=== PATIENT | male | born 1935 | race Caucasian/White ===

== ENCOUNTER → 2018-05-04 12:19 | Outpatient (CLI) | payer OTHER, SELFPAY ==
[2018-05-04 13:13] LABS: Prothrombin Time 18.6 sec (9.3-10.8)
[2018-05-04 13:43] LABS: INR 1.9 (1.0-3.5)
== END ==
PROVIDERS: PCP Family Medicine; Visit Provider Family Medicine
DX: I48.91 Unspecified atrial fibrillation (principal); Z79.01 Long term (current) use of anticoagulants
CPT/HCPCS: 36415; 85610

== ENCOUNTER → 2018-05-17 12:22 | Outpatient (CLI) | payer OTHER, SELFPAY ==
[2018-05-17 12:59] LABS: INR 1.6 (1.0-3.5); Prothrombin Time 15.5 sec (9.3-10.8)
== END ==
PROVIDERS: Family Medicine; PCP Family Medicine; Visit Provider Family Medicine
DX: I48.91 Unspecified atrial fibrillation (principal); Z79.01 Long term (current) use of anticoagulants
CPT/HCPCS: 36415; 85610

== ENCOUNTER 2018-05-31 12:16 | Outpatient (CLI) | payer OTHER, SELFPAY ==
[2018-05-31 12:47] LABS: INR 2.6 (1.0-3.5); Prothrombin Time 24.2 sec (9.3-10.8)
== END 2018-05-31 12:36 ==
PROVIDERS: Family Medicine; PCP Family Medicine; Visit Provider Family Medicine
DX: I48.91 Unspecified atrial fibrillation (principal); Z79.01 Long term (current) use of anticoagulants
CPT/HCPCS: 36415; 85610

== ENCOUNTER 2018-06-13 12:20 | Outpatient (CLI) | payer OTHER, SELFPAY ==
[2018-06-13 13:32] LABS: INR 2.4 (1.0-3.5); Prothrombin Time 22.6 sec (9.3-10.8)
== END 2018-06-13 12:40 ==
PROVIDERS: PCP Family Medicine; Visit Provider Family Medicine
DX: I48.91 Unspecified atrial fibrillation (principal); Z79.01 Long term (current) use of anticoagulants
CPT/HCPCS: 36415; 85610

== ENCOUNTER 2018-07-06 12:32 | Outpatient (CLI) | payer OTHER, SELFPAY ==
[2018-07-06 13:05] LABS: INR 2.4 (1.0-3.5); Prothrombin Time 22.9 sec (9.3-10.8)
[2018-07-06 13:31] LABS: Anion Gap 11.4 mmol/L (3-11); BUN 25 mg/dL (7-18); CO2 25.6 mmol/L (21.0-32.0); CREATININE 1.18 mg/dL (0.70-1.30); Calcium 8.5 mg/dL (8.5-10.1); Chloride 105 mmol/L (98-107); Estimated GFR 59.25 (mL/min/1.73m2); Glucose 107 mg/dL (70-100); Potassium 3.6 mmol/L (3.5-5.1); Sodium 142 mmol/L (136-145)
== END 2018-07-06 12:52 ==
PROVIDERS: PCP Family Medicine; Visit Provider Family Medicine
DX: I48.91 Unspecified atrial fibrillation (principal); Z79.01 Long term (current) use of anticoagulants; N28.9 Disorder of kidney and ureter, unspecified
CPT/HCPCS: 36415; 80048; 85610

== ENCOUNTER → 2018-07-23 09:57 | Outpatient (BNVA) | payer OTHER, SELFPAY | PROVIDERS: PCP Family Medicine; Visit Provider Student in an Organized Health Care Education/Training Program | DX: T84.84XD Pain due to internal orthopedic prosthetic devices, implants and grafts, subsequent encounter (principal); Z96.652 Presence of left artificial knee joint | CPT/HCPCS: 20610; 99213 ==

== ENCOUNTER 2018-07-23 11:34 | Outpatient (REF) | payer OTHER, SELFPAY ==
[2018-07-23 12:38] LABS: Clarity CLOUDY; Source L KNEE
[2018-07-23 12:39] LABS: Mononuclear Cells 40 % (0-0); Polynuclear Cells 60 % (0-0)
[2018-07-23 12:41] LABS: Nucleated Cells 3772 /MM3 (0-0)
== END 2018-07-23 11:54 ==
LOC: LBN 11:34
PROVIDERS: PCP Family Medicine; Visit Provider Student in an Organized Health Care Education/Training Program
DX: T84.84XA Pain due to internal orthopedic prosthetic devices, implants and grafts, 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 (principal)
CPT/HCPCS: 87070; 87205; 89051; 89060

== ENCOUNTER 2018-07-27 00:45 | Outpatient (CLI) | payer OTHER, SELFPAY ==
--- NOTE | 2018-07-27 10:07 | DI.NM_ITS ---
SYMPTOMS/DIAGNOSIS: PAINFUL LT TKA, T84.84XA 3 PHASE BONE SCAN: The study was conducted according to the usual protocol with an intravenous administration of 25.5 millicuries of Technetium 99 MDP. No recent x-ray images of the right or left knee are provided. There are regions of increased photon density in the right knee which would be consistent with degenerative change. Increased photon density adjacent to prosthetic device can persistent for long periods of time. The flow study today is essentially unremarkable. Immediate and delayed images were obtained on this patient and in addition to the findings described about the knees, there is a right hip prosthesis in place with mild associated increased photon density in the adjacent bony structures. Note is also made of increased photon density in the left mandible which could be associated with the patient's dentition. Also note is made of a region of increased photon density in the vicinity of the right maxillary antrum raising the possibility of sinusitis. There is symmetrical activity over the renal beds and activity is identified in the bladder. SUMMARY: Findings consistent with the patient's right TKR. Also there is incidentally a question regarding right maxillary sinusitis. Correlation of the findings today with the patient's clinical status and recent x-ray is recommended. There is nothing on this examination to suggest metastatic disease. A previous bone scan was not extant at the time of this interpretation.
== END 2018-07-27 01:05 ==
PROVIDERS: PCP Family Medicine; Visit Provider Physician Assistant
DX: T84.84XA Pain due to internal orthopedic prosthetic devices, implants and grafts, 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 (principal); Z96.641 Presence of right artificial hip joint; M25.562 Pain in left knee
CPT/HCPCS: 78315

== ENCOUNTER 2018-08-31 12:32 | Outpatient (CLI) | payer OTHER, SELFPAY ==
[2018-08-31 14:09] LABS: INR 2.2 (1.0-3.5); Prothrombin Time 20.9 sec (9.3-10.8)
== END 2018-08-31 12:52 ==
PROVIDERS: PCP Family Medicine; Visit Provider Family Medicine
DX: I48.91 Unspecified atrial fibrillation (principal); Z79.01 Long term (current) use of anticoagulants
CPT/HCPCS: 36415; 85610

== ENCOUNTER → 2018-09-10 10:45 | Outpatient (BNVA) | payer OTHER, SELFPAY | PROVIDERS: PCP Family Medicine; Referring Provider Family Medicine; Visit Provider Student in an Organized Health Care Education/Training Program | DX: T84.84XA Pain due to internal orthopedic prosthetic devices, implants and grafts, 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 (principal); Z96.652 Presence of left artificial knee joint; E11.22 Type 2 diabetes mellitus with diabetic chronic kidney disease; N18.2 Chronic kidney disease, stage 2 (mild) | CPT/HCPCS: 99213 ==

== ENCOUNTER 2018-10-05 12:42 | Outpatient (CLI) | payer OTHER, SELFPAY ==
[2018-10-05 13:45] LABS: INR 1.8 (0.9-1.1)
== END 2018-10-05 13:02 ==
PROVIDERS: PCP Family Medicine; Visit Provider Family Medicine
DX: I48.91 Unspecified atrial fibrillation (principal); Z79.01 Long term (current) use of anticoagulants
CPT/HCPCS: 36415; 85610

== ENCOUNTER 2018-11-13 11:27 | Outpatient (CLI) | payer OTHER, SELFPAY ==
[2018-11-13 12:29] LABS: INR 2.2 (0.9-1.1); Prothrombin Time 22.5 sec (9.3-11.0)
== END 2018-11-13 11:47 ==
PROVIDERS: PCP Family Medicine; Visit Provider Family Medicine
DX: I48.91 Unspecified atrial fibrillation (principal); Z79.01 Long term (current) use of anticoagulants
CPT/HCPCS: 36415; 85610

== ENCOUNTER 2018-12-25 11:20 | Outpatient (CLI) | payer OTHER, SELFPAY ==
[2018-12-25 12:16] LABS: INR 2.6 (0.9-1.1); Prothrombin Time 25.8 sec (9.3-11.0)
== END 2018-12-25 11:40 ==
PROVIDERS: PCP Family Medicine; Visit Provider Family Medicine
DX: I48.91 Unspecified atrial fibrillation (principal); Z79.01 Long term (current) use of anticoagulants
CPT/HCPCS: 36415; 85610

== ENCOUNTER 2019-01-24 10:54 | Outpatient (CLI) | payer OTHER, SELFPAY ==
[2019-01-24 11:32] LABS: INR 1.4 (0.9-1.1); Prothrombin Time 14.3 sec (9.3-11.0)
== END 2019-01-24 11:14 ==
PROVIDERS: PCP Family Medicine; Visit Provider Family Medicine
DX: I48.91 Unspecified atrial fibrillation (principal); Z79.01 Long term (current) use of anticoagulants
CPT/HCPCS: 36415; 85610

== ENCOUNTER 2019-01-31 12:12 | Outpatient (CLI) | payer OTHER, SELFPAY ==
[2019-01-31 12:55] LABS: Prothrombin Time 19.8 sec (9.3-11.0)
== END 2019-01-31 12:32 ==
PROVIDERS: PCP Family Medicine; Visit Provider Family Medicine
DX: I48.91 Unspecified atrial fibrillation (principal); Z79.01 Long term (current) use of anticoagulants
CPT/HCPCS: 36415; 85610

== ENCOUNTER 2019-03-22 12:07 | Outpatient (CLI) | payer OTHER, SELFPAY ==
[2019-03-22 12:43] LABS: INR 2.5 (0.9-1.1); Prothrombin Time 24.8 sec (9.3-11.0)
== END 2019-03-22 12:27 ==
PROVIDERS: PCP Family Medicine; Visit Provider Family Medicine
DX: I48.91 Unspecified atrial fibrillation (principal); Z79.01 Long term (current) use of anticoagulants
CPT/HCPCS: 36415; 85610

== ENCOUNTER 2019-04-26 12:23 | Outpatient (CLI) | payer OTHER, SELFPAY ==
[2019-04-26 12:56] LABS: INR 1.8 (0.9-1.1); Prothrombin Time 18.3 sec (9.3-11.0)
== END 2019-04-26 12:43 ==
PROVIDERS: PCP Family Medicine; Visit Provider Family Medicine
DX: I48.91 Unspecified atrial fibrillation (principal); Z79.01 Long term (current) use of anticoagulants
CPT/HCPCS: 36415; 85610

== ENCOUNTER 2019-05-10 12:14 | Outpatient (CLI) | payer OTHER, SELFPAY ==
[2019-05-10 12:54] LABS: Prothrombin Time 20.6 sec (9.3-11.0)
== END 2019-05-10 12:34 ==
PROVIDERS: PCP Family Medicine; Visit Provider Family Medicine
DX: I48.91 Unspecified atrial fibrillation (principal); Z79.01 Long term (current) use of anticoagulants
CPT/HCPCS: 36415; 85610

== ENCOUNTER 2019-06-21 12:09 | Outpatient (CLI) | payer OTHER, SELFPAY ==
[2019-06-21 12:48] LABS: INR 2.1 (0.9-1.1); Prothrombin Time 20.9 sec (9.3-11.0)
== END 2019-06-21 12:29 ==
PROVIDERS: Family Medicine; PCP Family Medicine; Visit Provider Family Medicine
DX: I48.91 Unspecified atrial fibrillation (principal); Z79.01 Long term (current) use of anticoagulants
CPT/HCPCS: 36415; 85610

== ENCOUNTER 2019-08-09 12:16 | Outpatient (CLI) | payer OTHER, SELFPAY ==
[2019-08-09 13:51] LABS: Anion Gap 11.1 mmol/L (3-11); BUN 27 mg/dL (7-18); CO2 27.9 mmol/L (21.0-32.0); CREATININE 1.33 mg/dL (0.70-1.30); Calcium 8.5 mg/dL (8.5-10.1); Chloride 101 mmol/L (98-107); Estimated GFR 51.48 (mL/min/1.73m2); Glucose 122 mg/dL (70-100); Potassium 3.6 mmol/L (3.5-5.1); Sodium 140 mmol/L (136-145)
[2019-08-09 14:25] LABS: INR 3.6 (0.9-1.1); Prothrombin Time 34.9 sec (9.3-11.0)
== END 2019-08-09 12:36 ==
PROVIDERS: PCP Family Medicine; Visit Provider Family Medicine
DX: I10 Essential (primary) hypertension (principal); I48.91 Unspecified atrial fibrillation; Z79.01 Long term (current) use of anticoagulants
CPT/HCPCS: 36415; 80048; 85610

== ENCOUNTER 2019-08-19 10:12 | Outpatient (CLI) | payer OTHER, SELFPAY ==
[2019-08-19 11:23] LABS: INR 2.6 (0.9-1.1); Prothrombin Time 25.2 sec (9.3-11.0)
== END 2019-08-19 10:32 ==
PROVIDERS: PCP Family Medicine; Visit Provider Family Medicine
DX: I48.91 Unspecified atrial fibrillation (principal); Z79.01 Long term (current) use of anticoagulants
CPT/HCPCS: 36415; 85610

== ENCOUNTER 2019-08-27 10:28 | Outpatient (CLI) | payer OTHER, SELFPAY ==
[2019-08-27 11:28] LABS: INR 3.5 (0.9-1.1); Prothrombin Time 34.4 sec (9.3-11.0)
== END 2019-08-27 10:48 ==
PROVIDERS: PCP Family Medicine; Visit Provider Family Medicine
DX: I48.91 Unspecified atrial fibrillation (principal); Z79.01 Long term (current) use of anticoagulants
CPT/HCPCS: 36415; 85610

== ENCOUNTER 2019-09-05 12:05 | Outpatient (CLI) | payer OTHER, SELFPAY ==
[2019-09-05 13:10] LABS: INR 2.4 (0.9-1.1); Prothrombin Time 23.5 sec (9.3-11.0)
== END 2019-09-05 12:25 ==
PROVIDERS: PCP Family Medicine; Visit Provider Family Medicine
DX: I48.91 Unspecified atrial fibrillation (principal); Z79.01 Long term (current) use of anticoagulants
CPT/HCPCS: 36415; 85610

== ENCOUNTER 2019-10-11 10:42 | Outpatient (CLI) | payer OTHER, SELFPAY ==
[2019-10-11 11:57] LABS: INR 2.9 (0.9-1.1)
== END 2019-10-11 11:02 ==
PROVIDERS: Family Medicine; PCP Family Medicine; Visit Provider Family Medicine
DX: I48.91 Unspecified atrial fibrillation (principal); Z79.01 Long term (current) use of anticoagulants
CPT/HCPCS: 36415; 85610

== ENCOUNTER 2019-11-06 09:21 | Outpatient (CLI) | payer OTHER, SELFPAY ==
[2019-11-06 10:38] LABS: INR 2.4 (0.9-1.1); Prothrombin Time 23.3 sec (9.3-11.0)
== END 2019-11-06 09:41 ==
PROVIDERS: PCP Family Medicine; Visit Provider Family Medicine
DX: I48.91 Unspecified atrial fibrillation (principal); Z79.01 Long term (current) use of anticoagulants
CPT/HCPCS: 36415; 85610

== ENCOUNTER 2020-03-23 03:08 | Outpatient (CLI) | payer OTHER, SELFPAY ==
[2020-03-23 10:04] LABS: INR 2.1 (0.9-1.1); Prothrombin Time 20.6 sec (9.3-11.0)
== END 2020-03-23 03:28 ==
PROVIDERS: PCP Family Medicine; Visit Provider Family Medicine
DX: I48.91 Unspecified atrial fibrillation (principal); Z79.01 Long term (current) use of anticoagulants
CPT/HCPCS: 36415; 85610

== ENCOUNTER 2021-02-19 14:44 | Outpatient (REF) | payer MEDICARE, SELFPAY ==
--- NOTE | 2021-02-19 10:50 | PAPNONF_PTH ---
PATIENT: Jorge Stone LOC: [facility] U#:[id number] AGE/SX: 85/M ROOM: RE02/19/[address]: Tamiko Sullivan, PhD CUSTOMER ACCOUNTS ADVISOR : 1935 BED: DIS: 02/19/2021 SPEC #: [id number] RECD: 02/19/21 17:59 STATUS: CALEB REQ #: [id number] SUE: 02/19/21 10:[address]: Tamiko Sullivan DEPT: [facility] Cytology RECD BY: Donna Villalobos Tissues: 1 - BODY FLUID CYTO(SPUTUM/URINE)UV Procedures: BODY FLUID CYTO(URINE/SPUTUM) Comments: (TOTAL VOLUME = 40 ml's) (40 ml's URINE & 40 ml's CYTOLYT ADDED)
[2021-02-19 14:18] LABS: Bilirubin Small (Negative); Blood Large (Negative); Clarity Cloudy (Clear); Glucose Negative (Negative); Ketones Negative (Negative); Leukocyte Esterase Negative (Negative); Nitrite Negative (Negative); Specific Gravity 1.015 (1.005-1.025); Urobilinogen 0.2 EU/dL (Up TO 0.2); pH >= 9.0 (5-8)
[2021-02-19 14:28] LABS: Bacteria Negative HPF (Negative); Crystals Few Triple Phos HPF (Negative); Epithelial Cells Rare HPF (Negative); RBC >50 HPF (0-2); WBC 0-2 HPF (0-5)
[2021-02-19 14:29] LABS: C & S Indicated? No; Casts Negative LPF (Negative); Mucus Moderate (Negative)
== END 2021-02-19 14:45 | disposition home or self-care (01) ==
LOC: LBN 14:44
PROVIDERS: PCP Nurse Practitioner; Visit Provider Nurse Practitioner
DX: R31.9 Hematuria, unspecified (principal); R82.71 Bacteriuria; R82.89 Other abnormal findings on cytological and histological examination of urine
CPT/HCPCS: 81003; 81015; 88104

== ENCOUNTER 2021-05-04 01:33 | Outpatient (CLI) | payer MEDICARE, SELFPAY ==
--- NOTE | 2021-05-04 | DI.US_ITS ---
Exam(s) US RENAL EXAM: US RENAL CLINICAL HISTORY: HEMATURIA,R31.9. TECHNIQUE: Lockett scale, color and spectral Doppler were used. COMPARISON: CT CHEST ABD PELVIS WO CONTRAST from 01/14/2018 CT CHEST ABD PELVIS WO CONTRAST from 01/14/2018 FINDINGS: Exam is limited by the patient's body habitus. There is a large amount of perirenal fat. No gross r enal abnormality is seen. Renal size in cm: Right: Left: Echogenicity: Normal Hydronephrosis: No Cyst or mass: No Nephrolithiasis: No Bladder:Nearly empty. 4.7 x 1.3 x 4.2 cm irregular lobulated tissue posterior left side of the bladd er suspicious for mass. Prevoid vol:40 cc Postvoid vol:Not performed Prostate not visualized. IMPRESSION: Findings suspicious for a bladder mass. Kidneys are grossly normal. DATA REPOSITORY:
== END 2021-05-04 01:53 ==
PROVIDERS: PCP Nurse Practitioner; Visit Provider Nurse Practitioner
DX: R31.9 Hematuria, unspecified (principal)
CPT/HCPCS: 76770

== ENCOUNTER → 2021-06-08 10:52 | Outpatient (BNVA) | payer MEDICARE, SELFPAY | PROVIDERS: PCP Nurse Practitioner; Referring Provider Nurse Practitioner; Visit Provider Nurse Practitioner Gerontology | DX: R31.0 Gross hematuria (principal); N32.89 Other specified disorders of bladder | CPT/HCPCS: 81003; 99215 ==

== ENCOUNTER 2021-07-30 03:09 | Outpatient (CLI) | payer MEDICARE, SELFPAY ==
[2021-07-30 12:33] LABS: Source Nasal/Nares
[2021-07-30 17:09] LABS: COVID-19 PCR Negative (Negative)
== END 2021-07-30 03:10 | disposition home or self-care (01) ==
LOC: LBO 03:10
PROVIDERS: Urology; PCP Nurse Practitioner; Visit Provider Nurse Practitioner Gerontology
DX: Z20.822 Contact with and (suspected) exposure to COVID-19 (principal); Z01.818 Encounter for other preprocedural examination
CPT/HCPCS: 87635

== ENCOUNTER 2021-08-02 02:06 | Outpatient (CLI) | payer SELFPAY, MEDICARE | END 2021-08-02 02:07 | disposition home or self-care (01) | LOC: RT 02:06 | PROVIDERS: PCP Nurse Practitioner; Visit Provider Urology | DX: R69 Illness, unspecified (principal) | CPT/HCPCS: 93005; 93010 ==

== ENCOUNTER 2021-08-02 10:32 | Day surgery (SDC) | payer MEDICARE, SELFPAY ==
--- NOTE | 2021-08-02 10:16 | HPE_ITS ---
Date of service: 08/02/21 Time of Service: 10:16 Assessment and Plan Assessment and plan (1) Hematuria: Status: Acute (2) Mass of urinary bladder determined by ultrasound: Status: Acute Assessment and plan: For cystoscopy with bilateral retrograde pyelogram to complete his hematuria workup. We will plan to resect any visible bladder tumor and admit the patient for continuous bladder irrigation if need be. 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) bilateral Social History Smoking/Tobacco Use Status: Former Tobacco Use tobacco type: cigarettes, pipe and cigars Smokeless tobacco user: snuff Quit status: not considering quitting Second Hand Exposure: Yes Smoking risk assessment performed?: Yes Alcohol Intake: former Drug use: Never Caregiver/Support person: No Household members: none Communication Needs: Hard of Hearing and Cannot Read Do you need help understanding health information?: Rarely Pets and animals: No Sexually active: No Current gender identity: male What is your relationship status?: How often do you talk on the phone with friends or family?: three or more times per week How often do you get together with friends or relatives?: once per week Panel score (0-1 are the most socially isolated patients): 1 Duration: < 15 minutes/day Frequency: 1-2 times per week Anna/Catholic: No preference Seatbelt use: always Helmet use: No Do you feel safe in your relationship?: Yes Meds Allergies and Home Medications Allergies Allergy/AdvReac Type Severity Reaction Status Date / Time No Known Allergies Allergy Unverified 08/02/21 10:12 Home Medications Medication Instructions Recorded Confirmed Type acetaminophen 650 mg 1,300 mg PO HS PRN #60 tab 09/11/18 07/30/21 Rx tablet,extended release polyethylene glycol 3350 17 17 gm PO DAILY PRN #238 gm 01/24/19 07/30/21 Rx gram/dose oral powder warfarin 2.5 mg tablet 2.5 mg PO DAILY #100 tab 04/07/20 07/30/21 Rx allopurinol 300 mg tablet 300 mg PO DAILY #90 tab-cap 06/23/20 07/30/21 Rx diltiazem HCl 120 mg 120 mg PO QAM #90 tab 06/23/20 07/30/21 Rx capsule,extended release 24 hr ascorbic acid (vitamin C) 250 mg 250 mg PO DAILY 10/23/20 07/30/21 History tablet cknwosasg-gnpdcwqhbh-U7-B2-folic 6 cap PO DAILY cap 10/23/20 07/30/21 History acid-iron 0.45 gram-9 mg-67 unit cap cholecalciferol (vitamin D3) 25 50 mcg PO DAILY cap 10/23/20 07/30/21 History mcg (1,000 unit) capsule omega 1-mog-rvi-fish oil 1,000 mg 1 cap PO DAILY 10/23/20 07/30/21 History (120 mg-180 mg) capsule bacitracin 500 unit/gram topical 1 applic TOPICAL BID #30 g 11/27/20 07/30/21 Rx ointment bumetanide 1 mg tablet 2 mg PO QAM #180 tab 02/05/21 07/30/21 Rx lisinopril 10 mg tablet 10 mg PO DAILY #90 tab 02/18/21 07/30/21 Rx warfarin 5 mg tablet 5 mg PO .COMPLEX #100 tab 05/07/21 07/30/21 Rx PAWSS Have you Been Recently Intoxicated or Drunk Within the Last 30 days?: No Have you Ever Experienced Previous Episodes of Alcohol Withdrawal?: No Have you ever Experienced Withdrawal Seizures?: No Have you ever Experienced Delirium Tremens(DT)s?: No Have you ever undergone Alcohol Rehabilitation Treatment (i.e, inpt ot outpatient treatment programs)?: No Have you ever Experienced Blackouts?: No Have you ever Combined Alcohol with other Downers within the last 90 days?: No Have you ever Combined Alcohol with any other Substance of Abuse during the last 90 days?: No Positive Blood Alcohol level on Presentation? [PCS.BAL]: Unable to Obtain Evidence of Increased Autonomic Activity (i.e. HR>120, tremor, sweating, agitation, nausea)?: Unable to Obtain Result: 0
--- NOTE | 2021-08-02 11:00 | RT.EKG_ITS ---
APPROVED REPORT Exam: Resting ECG Reason for Exam: Cardiac history, Preop Exam Patient Location: O HR:66 bpm ECG Measurements Heart Rate 66 [place] [id number] P [id number] QRSd 98 QRS -29 QT 399 T 30 QTc 418 Conclusion Atrial fibrillation...V-rate 53- 77, irreg A-activity Possible Inferior infarct, old...Q >35mS, II III aVF
== END 2021-08-02 10:33 | disposition home or self-care (01) ==
LOC: SUR 10:33
PROVIDERS: PCP Nurse Practitioner; Visit Provider Urology
PROC: (CPT 74450; principal; 2021-08-02 11:45)
PROC: 0TBB8ZZ Excision of Bladder, Via Natural or Artificial Opening Endoscopic (ICD-10-PCS; 2021-08-02 11:45)
DX: Z53.9 Procedure and treatment not carried out, unspecified reason (principal); I48.91 Unspecified atrial fibrillation
CPT/HCPCS: 93005; 93010; J2405; J2704

== ENCOUNTER 2021-08-06 03:13 | Outpatient (CLI) | payer MEDICARE, SELFPAY ==
[2021-08-06 10:59] LABS: Source Nasal/Nares
[2021-08-06 15:42] LABS: COVID-19 PCR Negative (Negative)
== END 2021-08-06 03:14 | disposition home or self-care (01) ==
LOC: LBO 03:14
PROVIDERS: PCP Nurse Practitioner; Visit Provider Urology
DX: Z20.822 Contact with and (suspected) exposure to COVID-19 (principal); Z01.818 Encounter for other preprocedural examination
CPT/HCPCS: 87635

== ENCOUNTER 2021-08-09 09:12 | Inpatient (IN) | payer MEDICARE, SELFPAY ==
--- NOTE | 2021-08-08 16:46 | W.ANESPRE ---
General Info Date of Service Date Performed: 08/09/21 Height: 5 ft 11 in Weight: 136.531 kg Body Mass Index (BMI): 42.0 Surgical Procedure: Operation Date: 08/09/21 07:40 Proposed Procedures Side Surgeon p Cysto\Bilateral Retrograde\possible TURBT Raymon Delgadillo MD Meds Allergies and Home Medications Allergies Allergy/AdvReac Type Severity Reaction Status Date / Time No Known Allergies Allergy Unverified 08/09/21 06:36 Home Medication Medication Instructions Recorded acetaminophen 650 mg 1,300 mg PO HS PRN #60 tab 09/11/18 tablet,extended release polyethylene glycol 3350 17 17 gm PO DAILY PRN #238 gm 01/24/19 gram/dose oral powder warfarin 2.5 mg tablet 2.5 mg PO DAILY #100 tab 04/07/20 allopurinol 300 mg tablet 300 mg PO DAILY #90 tab-cap 06/23/20 diltiazem HCl 120 mg 120 mg PO QAM #90 tab 06/23/20 capsule,extended release 24 hr ascorbic acid (vitamin C) 250 mg 250 mg PO DAILY 10/23/20 tablet ldmobkoch-vizlpmdpqq-B8-B2-folic 6 cap PO DAILY cap 10/23/20 acid-iron 0.45 gram-9 mg-67 unit cap cholecalciferol (vitamin D3) 25 50 mcg PO DAILY cap 10/23/20 mcg (1,000 unit) capsule omega 7-cuk-tru-fish oil 1,000 mg 1 cap PO DAILY 10/23/20 (120 mg-180 mg) capsule bacitracin 500 unit/gram topical 1 applic TOPICAL BID #30 g 11/27/20 ointment bumetanide 1 mg tablet 2 mg PO QAM #180 tab 02/05/21 lisinopril 10 mg tablet 10 mg PO DAILY #90 tab 02/18/21 warfarin 5 mg tablet 5 mg PO .COMPLEX #100 tab 05/07/21 Current Visit Medications: Current Medications Generic Name Dose Route Start Last Admin Trade Name Freq PRN Reason Stop Dose Admin Ringer's Solution 1,000 mls @ 80 mls/hr 08/09/21 06:00 IV 09/05/21 23:59 INFUSION JHONATAN Cefazolin Sodium 2,000 mg/ 100 mls @ 200 mls/hr 08/09/21 06:00 Sodium Chloride IVPB 08/09/21 16:00 PREOP JHONATAN IV Miscellaneous Supplies 1 each 08/09/21 06:00 Iv Access IV 09/05/21 23:59 DIRECTED JHONATAN Sodium Chloride 0 ml 08/09/21 06:00 Normal Saline Flush 10 Ml Syr IV 09/05/21 23:59 PRN PRN Sodium Chloride 0 ml 08/09/21 06:00 Normal Saline 10 Ml Vial IJ 09/05/21 23:59 DIRECTED PRN Sterile Water 0 ml 08/09/21 06:00 Water,Injection,Sterile 10 Ml Vial IJ 09/05/21 23:59 DIRECTED PRN PFSH Active Problems Active Problems: Problem Status Onset Code Mass of urinary bladder determined by ultrasound N32.89 Hyperlipidemia E78.5 Acute idiopathic gout of right hand 10/04/16 M10.041 Anticoagulated on warfarin Z79.01 Atrial fibrillation 07/09/13 I48.91 Benign neoplasm of colon D12.6 Chronic systolic congestive heart failure, NYHA class 2 12/15/15 I50.22 Diastasis recti M62.08 Gynecomastia 12/30/14 N62 Hearing loss H91.90 Hydrocele N43.3 Lymphedema of both lower extremities 07/03/15 I89.0 Obesity E66.9 Osteoarthritis of finger of left hand 12/15/15 M19.042 Pain due to total left knee replacement 02/26/18 T84.84XA, Z96.652 Palpitations R00.2 Primary osteoarthritis of right knee 02/26/18 M17.11 Chronic renal insufficiency, 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 HTN (hypertension) I10 Hematuria R31.9 Medical History Active Problem List (Updated 08/09/21 @ 06:48 by Hannah Delatorre) Hyperlipidemia (Chronic) 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) Anticoagulated on warfarin (Chronic) Atrial fibrillation (Chronic 07/09/13) Benign neoplasm of colon (Chronic) Chronic systolic congestive heart failure, NYHA class 2 (Chronic 12/15/15) Diastasis recti (Chronic) Gynecomastia (Chronic 12/30/14) Hearing loss (Chronic) Hydrocele (Chronic) Lymphedema of both lower extremities (Chronic 07/03/15) Obesity (Chronic) Osteoarthritis of finger of left hand (Chronic 12/15/15) Pain due to total left knee replacement (Chronic 02/26/18) Palpitations (Chronic) Primary osteoarthritis of right knee (Chronic 02/26/18) Chronic renal insufficiency, stage II (mild) (Chronic) HTN (hypertension) (Chronic) Hematuria (Acute) Mass of urinary bladder determined by ultrasound (Acute) Medical History (Updated 08/09/21 @ 06:48 by Hannah Delatorre) Acute cholecystitis Anemia Breast cancer in male (~2006) Breast mass, right Closed cervical spine fracture Closed fracture of third cervical vertebra without spinal cord injury Dental caries Diabetes pt. denies Diverticulosis of colon without diverticulitis (12/16/08) per colonoscopy Hematemesis pt. 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 reports only Left side, pt. reports they only removed part of right Cholecystectomy (05/26/17) Colonoscopy - MAC (07/18/12) DR. SPENCE; TUBULAR ADENOMAS EGD - MAC (07/18/12) History of esophagogastroduodenoscopy History of hip surgery R side from accident, pt. reports plate and pin RFA 2013, pt. 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 Tobacco Smoking/Tobacco Use Status: Former Tobacco Use Smokeless tobacco user: snuff Passive smoking exposure: Yes Quit Status: not considering quitting Second hand exposure: Yes Alcohol Alcohol Intake: former Substance Use Substance use: Never Vital Signs and Lab Results Lab Results Blood Type / Crossmatch: No Data to Display Complete Blood Count: No Data to Display Complete Metabolic Panel: No Data to Display Liver Function Panel: No Data to Display Coagulation Panel: INR International Normalized Ratio 2.4 (0.9-1.1) H 07/27/21 15:02 07/27/21 Cardiac Panel: No Data to Display Arterial Blood Gas: No Data to Display Venous Blood Gas: No Data to Display Pancreas Panel: No Data to Display Thyroid Panel: No Data to Display Infectious Disease: Coronavirus (COVID-19)(PCR) Negative (Negative) 08/06/21 09:20 08/06/21 Coronavirus 2019 Source Nasal/Nares 08/06/21 09:20 08/06/21 Blood Cultures: No Data to Display Toxicology Panel: No Data to Display Imaging and Studies Imaging and Studies EKG Summary: 2020: a fib v rate 53-77. possible old infarct, old. Echocardiogram Summary: 2018: LVEF 40-45%, diffuse hypokinesis.ventricular septum with paradoxical motion. mild MR/ AR, rv fxn normal. Carotid Artery Summary:: 2017: bilaterally both < 15% stenosis. Pulmonary Function Summary: 2013: moderate restrictive lung dz. Anesthesia Assessment and Plan Anesthesia History Personal History: No History of Anesthesia Complications Family History: No Family History of Anesthesia Complications Exercise Tolerance Exercise Tolerance: Metabolic Equivalents<4 (Gardening, cooking, walks around supermarket with grocery cart) Pertinent Negatives Pertinent Negatives: No Symptoms of GERD, No Major Cardiovascular Symptoms or Complaints, No Major Pulmonary Symptoms or Complaints and No History of CVA/TIA Cardiac & Pulmonary Exam Cardiac Exam: Normal S1/S2 Heart Sounds (Atrial fibrillation) Pulmonary Exam: Clear Bilateral Breath Sounds Implantable Cardiac Device Does patient have a Pacemaker or an ICD?: No Airway Exam Known Difficult Airway: No Mallampati Class: 4 Mouth Opening: Normal (> 3cm) Thyromental Distance: Greater than 3 cm Facial Hair: Full Penny Neck Range of Motion: Limited ROM Neck Circumference: Thick Teeth Condition: Generalized Poor Dentition (Many missing teeth. None loose. ) ASA Classification ASA Score: ASA 3 Emergency Case?: No NPO Status NPO Status: NPO Clears >2 hours, Solids >8 hours Anesthesia Plan Resuscitation Status: Full Code Anesthesia Technique: General Anesthesia Airway Planned: LMA Monitors Used: Standard Monitors Preoperative Comments:: 85 yo male for cysto due to hematuria. Sig PMHx: former smoker, afib (dilt/warfarin), former EtOH, restrictive lung dz, HTN (lisinopril). Arrived today with not having taken any of his medication since what sounds like Monday. This is due to his rx running out and not noticing that he had no refills. We discussed that his not taking his medications does put him at an increased risk for a cardiac event (rapid HR, heart failure, etc). He also has held his warfarin appropriately. Given that he has held his warfarin, and after a though conversation about risks of proceeding he elects to proceed with the procedure. Lung US was also preformed as an educational opportunity and no b lines were noted. Previous Anes: glide grade 1, easy mask.
[2021-08-09] VITALS (17 sets, daily range): BP systolic 109–169; BP diastolic 63–105; PULSE 60–99; RESP 16–21; TEMP 35–36.8; TEMPC 36.4; O2SAT 95–99; BMI 42.0
--- NOTE | 2021-08-09 06:50 | HPE_ITS ---
Date of service: 08/09/21 Time of Service: 06:50 Assessment and Plan Assessment and plan (1) Hematuria: Status: Acute (2) Mass of urinary bladder determined by ultrasound: Status: Acute Assessment and plan: He presents for cystoscopy and retrograde pyelogram to complete his hematuria workup. Should a bladder tumor be identified cystoscopically, we will be prepared to do a TURBT and admit the patient for continuous bladder irrigation overnight. History of Present Illness History of Present Illness Chief Complaint: Hematuria Narrative: Jorge is an 85-year-old male referred to urology for gross hematuria. He notes that the g ross of hematuria has resolved since. He reports he has never had concerns like this in the past. He does note that he is on Coumadin and recently had his total dosage decreased due to eating more green leafy vegetables. Patient reports he has seen blood in the urine as recently as this past weekend. he passed a small clot as well. He has not had any bout of urinary retention or symptoms of a urinary tract infection. He finds that he has discomfort with urination as sometimes especially when getting stream initiated. He notes that he voids several times during the day and at night but states this is due to his water pill. He reports that he has recently lost about 30 pounds in the last month related to dietary changes. He denies any new bone pains but notes he is having trouble with his knees. He has been on Coumadin but stopped the medication 3 days ago. Review of Systems Narrative: No fevers or chills No vision change or dysphasia Gynecomastia. No diabetes or thyroid dysfunction No shortness of breath, cough or hemoptysis Palpatations due to A Fib (none recently). No chest pain No nausea, vomiting, hepatitis, ulcers, jaundice No seizures, strokes or peripheral neuropathy On Coumadin chronically. No anemia Arthralgia and chronic lower extremity edema. Hx Gout [facility] Active Problem List (Updated 08/09/21 @ 06:48 by Hannah Delatorre) Hyperlipidemia (Chronic) 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) Anticoagulated on warfarin (Chronic) Atrial fibrillation (Chronic 07/09/13) Benign neoplasm of colon (Chronic) Chronic systolic congestive heart failure, NYHA class 2 (Chronic 12/15/15) Diastasis recti (Chronic) Gynecomastia (Chronic 12/30/14) Hearing loss (Chronic) Hydrocele (Chronic) Lymphedema of both lower extremities (Chronic 07/03/15) Obesity (Chronic) Osteoarthritis of finger of left hand (Chronic 12/15/15) Pain due to total left knee replacement (Chronic 02/26/18) Palpitations (Chronic) Primary osteoarthritis of right knee (Chronic 02/26/18) Chronic renal insufficiency, stage II (mild) (Chronic) HTN (hypertension) (Chronic) Hematuria (Acute) Mass of urinary bladder determined by ultrasound (Acute) Medical History (Updated 08/09/21 @ 06:48 by Hannah Delatorre) Acute cholecystitis Anemia Breast cancer in male (~2006) Breast mass, right Closed cervical spine fracture Closed fracture of third cervical vertebra without spinal cord injury Dental caries Diabetes pt. denies Diverticulosis of colon without diverticulitis (12/16/08) per colonoscopy Hematemesis pt. 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 reports only Left side, pt. reports they only removed part of right Cholecystectomy (05/26/17) Colonoscopy - MAC (07/18/12) DR. SPENCE; TUBULAR ADENOMAS EGD - MAC (07/18/12) History of esophagogastroduodenoscopy History of hip surgery R side from accident, pt. reports plate and pin RFA 2013, pt. 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 Social History Smoking/Tobacco Use Status: Former Tobacco Use tobacco type: cigarettes, pipe and cigars Smokeless tobacco user: snuff Quit status: not considering quitting Second Hand Exposure: Yes Smoking risk assessment performed?: Yes Alcohol Intake: former Drug use: Never Caregiver/Support person: No Household members: none Communication Needs: Hard of Hearing and Cannot Read Do you need help understanding health information?: Rarely Pets and animals: No Sexually active: No Current gender identity: male What is your relationship status?: How often do you talk on the phone with friends or family?: three or more times per week How often do you get together with friends or relatives?: once per week Panel score (0-1 are the most socially isolated patients): 1 Duration: < 15 minutes/day Frequency: 1-2 times per week Anna/Rastafarian: No preference Seatbelt use: always Helmet use: No Do you feel safe in your relationship?: Yes Meds Allergies and Home Medications Allergies Allergy/AdvReac Type Severity Reaction Status Date / Time No Known Allergies Allergy Unverified 08/09/21 06:36 Home Medications Medication Instructions Recorded Confirmed Type acetaminophen 650 mg 1,300 mg PO HS PRN #60 tab 09/11/18 08/09/21 Rx tablet,extended release polyethylene glycol 3350 17 17 gm PO DAILY PRN #238 gm 01/24/19 08/09/21 Rx gram/dose oral powder warfarin 2.5 mg tablet 2.5 mg PO DAILY #100 tab 04/07/20 08/09/21 Rx allopurinol 300 mg tablet 300 mg PO DAILY #90 tab-cap 06/23/20 08/09/21 Rx diltiazem HCl 120 mg 120 mg PO QAM #90 tab 06/23/20 08/09/21 Rx capsule,extended release 24 hr ascorbic acid (vitamin C) 250 mg 250 mg PO DAILY 10/23/20 08/09/21 History tablet pbaxlpxpn-yxnfnaviai-O1-B2-folic 6 cap PO DAILY cap 10/23/20 08/09/21 History acid-iron 0.45 gram-9 mg-67 unit cap cholecalciferol (vitamin D3) 25 50 mcg PO DAILY cap 10/23/20 08/09/21 History mcg (1,000 unit) capsule omega 6-oek-dcl-fish oil 1,000 mg 1 cap PO DAILY 10/23/20 08/09/21 History (120 mg-180 mg) capsule bacitracin 500 unit/gram topical 1 applic TOPICAL BID #30 g 11/27/20 08/09/21 Rx ointment bumetanide 1 mg tablet 2 mg PO QAM #180 tab 02/05/21 08/09/21 Rx lisinopril 10 mg tablet 10 mg PO DAILY #90 tab 02/18/21 08/09/21 Rx warfarin 5 mg tablet 5 mg PO .COMPLEX #100 tab 05/07/21 08/09/21 Rx Exam Const General: cooperative Neck Neck: supple Chest Chest: normal inspection of the chest Resp Effort & Inspection: normal respiratory effort Auscultation: clear to auscultation bilaterally Cardio Rate: regular rate Rhythm: regular rhythm GI Palpation: soft and no masses Neuro General: patient alert, patient awake and patient oriented x3
[2021-08-09] MEDS: dilTIAZem CD 120 MG CAPCR PO (07:39)
[2021-08-09] MEDS: Bumetanide 1 MG TAB 2 MG PO (07:40)
[2021-08-09] MEDS: Lactated Ringers 1,000 ML 80 ML IV ×2 (07:45→18:55)
[2021-08-09] MEDS: ceFAZolin 2,000 MG in Normal Saline 100 ML 200 MG IVPB (08:10)
[2021-08-09] MEDS: Lidocaine 2% Jelly 6 ML SYR (08:32)
[2021-08-09] MEDS: Omnipaque 300 MG/ML 50 ML BTL (08:35)
--- NOTE | 2021-08-09 08:40 | DI.RAD_ITS ---
Exam(s) XR RETROGRADE IN OR EXAM: XR RETROGRADE IN OR CLINICAL HISTORY: HEMATURIA/BLADDER MASS. TECHNIQUE: 2D digital imaging was performed. COMPARISON: No exams were available for comparison FINDINGS: Was provided during urologic procedure. Images not supplied. See procedure report for details. Total fluoroscopy time 18 seconds Total clipped of dose 9.47mGy IMPRESSION: DATA REPOSITORY: RADIATION DOSE DELIVERED:
--- NOTE | 2021-08-09 09:10 | BLADDER_PTH ---
PATIENT: Jorge Stone LOC: U#:[id number] AGE/SX: 85/M ROOM: [id number] RE08/09/[address]: Raymon Delgadillo MD : 1935 BED: A DIS: 08/10/2021 SPEC #: [id number] RECD: 08/09/21 13:05 STATUS: CALEB REQ #: [id number] SUE: 08/09/21 09:[address]: Raymon Delgadillo DEPT: Surgical Specimen RECD BY: Donna Villalobos ENTERED: 08/09/21 13:06 SP TYPE: Bladder OTHR DR: Tamiko Sullivan, PhD CEREAL SUPERVISOR Tissues: 1 - BLADDER BIOPSY Procedures: GROSS AND MICRO LEVEL 5 Comments: [id number]
--- NOTE | 2021-08-09 09:11 | W.PM.OP ---
Date of service: 08/09/21 Time of Service: 09:11 Operative Note Operative Note DATE OF PROCEDURE: 08/09/21 PRE-OP DIAGNOSIS: Gross hematuria POST-OP DIAGNOSIS: same Bladder mass PROCEDURE: cystoscopy, right retrograde pyelogram, TUR large bladder tumor SURGEON: Raymon Delgadillo ANESTHESIA TYPE: General LMA/ETT Refer to Anesthesia Record ESTIMATED BLOOD LOSS: 100 PATHOLOGY: other (bladder tumor) Patient was transported to: PACU Implants: 22 Monegasque irrigating catheter with 30 cc sterile water in balloon Indications: This is an 85-year-old gentleman who was evaluated for gross painless hematuria. His serum creatinine is elevated at baseline. He is not eligible for IV contrast, so noncontrast studies were obtained. No renal mass was found, but there was concern for a mass within his bladder. He presents now for cystoscopy with retrograde pyelogram and possible transurethral resection of bladder tumor. Findings: Large papillary tumor involving bladder base, left bladder wall and extending into prostatic urethra Procedure Description: The patient renewed his anticoagulants 3 days ago. He was given preoperative IV antibiotics and brought to the operating room on 08/09/2021. After successful induction of general anesthesia, he was placed in the dorsal lithotomy position. His genitalia was prepped and draped. 2% Xylocaine jelly was instilled into the urethra to act as a local anesthetic. A 22 Monegasque rigid cystoscope was passed through the urethra into the bladder. The urethra and bladder were inspected with the 30 degree lens. The pendulous, bulbar and membranous urethra's appeared normal with no strictures. The prostatic urethra showed some lateral lobe enlargement along with papillary growth of the mucosa at the bladder neck. The bladder neck was entered and the bladder mucosa was inspected. The right ureteral orifice was identified. No blood was seen coming from the right side. The right side of the bladder had normal appearing mucosa. The left side of the bladder was replaced with a papillary growth that extended from the trigone up to the anterior bladder wall. The left ureteral orifice could not be identified because of the location of the mass. I then passed a 5 Monegasque access catheter through the cystoscope and maneuvered the catheter into the right ureteral orifice. Retrograde film was obtained by injecting Omnipaque through the access catheter under fluoroscopic guidance. The right ureter and collecting system appeared normal. The right side drained with no filling defects. We then removed the cystoscope and passed a 24 Monegasque resectoscope sheath through the urethra into the bladder. Using an Aceves resectoscope and bipolar cautery, we performed transurethral resection of the visible tumor in the bladder and prostate. The lesion measured greater than 5 cm in largest dimensions. The base of the resection was cauterized using the coagulation current. All resected tissue was evacuated and sent to pathology for permanent section. Because of the depth of the resection, we elected not to place intravesical chemotherapy into the bladder. We filled the bladder with irrigant and passed a 22 Monegasque hematuria catheter through the urethra into the bladder. The catheter balloon was inflated with 30 cc of sterile water. Continuous bladder irrigation with saline was begun. Bimanual examination revealed a mobile bladder with no fixation. A belladonna and opium suppository was instilled into the rectum. He tolerated the procedure with no complications. He was taken to the recovery room in stable condition.
--- NOTE | 2021-08-09 09:26 | W.ANESPOSTOP ---
Postoperative Evaluation Date, Time and Location Date Performed: 08/09/21 Time Performed: 09:26 Patient Location: PACU Vital Signs Most Recent Imported Vital Signs: Most Recent Vital Signs Temp Pulse Resp BP Pulse Ox 36.6 C 72 18 141/63 H 99 08/09/21 06:59 08/09/21 06:59 08/09/21 06:59 08/09/21 06:59 08/09/21 06:59 Most Recent Manually Entered Vital Signs: Adult Blood Pressure: 146/83 Heart Rate: 74 Respirations: 18 Oxygen Saturation (%): 96 Temperature (C): 36.4 C Pain Score (0-10 Scale): 0 Pain Score Most Recent Pain Score: Most Recent Pain Score Pain Level 0 08/09/21 06:59 Assessment Mental Status: Awake (Alert & Oriented to Patient Baseline) Airway and Respiratory Function: Patent airway with normal (patient baseline) respiratory exam Cardiovascular Function: Hemodynamically Stable Hydration Status: Adequately Hydrated Nausea & Vomiting: No Nausea or Vomiting Pain: Pt. Denies Any Pain Peripheral Nerve Block: Patient did not receive a nerve block
--- NOTE | 2021-08-09 10:36 | NUR.NOTE ---
Nursing Note: At 1000 patient arrived from PACU in own hospital bed. Patient has patent IV right hand.Has three way continuos bladder irrigation draining bright red. VS stable and being monitored
[2021-08-09] MEDS: traMADol 50 MG TAB PO (19:37)
[2021-08-09] MEDS: Docusate Sodium 100 MG CAP PO (19:37)
[2021-08-10 08:03] VITALS: BP 106/55; PULSE 98; RESP 18; TEMP 36.7; O2SAT 97
--- NOTE | 2021-08-10 08:57 | PGE_ITS ---
Date of Service Date of service: 08/10/21 Time of Service: 08:57 Assessment and Plan Assessment and plan (1) S/P bladder tumor excision with fulguration: Status: Acute Assessment and plan: We will run his continuous bladder irrigation for another hour and then discontinue it and see how the urine looks. As long as his urine is transparent, we should be able to discharge him today with his Lyman to a leg bag. He will need to follow-up with us in about a week to have his catheter removed. We will also need to follow-up to discuss his surgical pathology. His ultimate treatment recommendation will depend on the surgical pathology in depth of penetration of his presumed bladder cancer. Subjective Subjective Interval history since last seen: He had quite a bit of bleeding immediately after his surgery but then the bleeding subsided through the night. This morning, he has suprapubic pressure and the sensation of needing to urinate. He is not having any fevers or chills. He became dizzy when he tried to get up out of bed last night. Exam Narrative Exam Narrative: His vital signs are documented elsewhere in the chart His continuous bladder irrigation is clear this morning. I went ahead and hand irrigated his catheter for multiple clots. His suprapubic pressure improved after the clots were removed. He is awake and alert Objective Last Vital Signs Temp 36.7 C 08/10/21 08:03 Pulse 98 H 08/10/21 08:03 Resp 18 08/10/21 08:03 BP 106/55 L 08/10/21 08:03 Pulse Ox 97 08/10/21 08:03 PAWSS Have you Been Recently Intoxicated or Drunk Within the Last 30 days?: No Have you Ever Experienced Previous Episodes of Alcohol Withdrawal?: No Have you ever Experienced Withdrawal Seizures?: No Have you ever Experienced Delirium Tremens(DT)s?: No Have you ever undergone Alcohol Rehabilitation Treatment (i.e, inpt ot outpatient treatment programs)?: No Have you ever Experienced Blackouts?: No Have you ever Combined Alcohol with other Downers within the last 90 days?: No Have you ever Combined Alcohol with any other Substance of Abuse during the last 90 days?: No Positive Blood Alcohol level on Presentation? [PCS.BAL]: No Evidence of Increased Autonomic Activity (i.e. HR>120, tremor, sweating, a gitation, nausea)?: No Result: 0
[2021-08-10] MEDS: dilTIAZem CD 120 MG CAPCR PO (09:09)
[2021-08-10] MEDS: Ascorbic Acid 500 MG TAB 250 MG PO (09:11)
[2021-08-10] MEDS: Docusate Sodium 100 MG CAP PO (09:11)
[2021-08-10] MEDS: Allopurinol 300 MG TAB PO (09:11)
[2021-08-10] MEDS: Bumetanide 1 MG TAB 2 MG PO (09:12)
[2021-08-10] MEDS: Cholecalciferol (Vitamin D3) 1,000 UNIT TAB 2000 UNITS PO (09:12)
[2021-08-10 09:34] LABS: Anion Gap 7.9 mmol/L (3-11); BUN 27 mg/dL (7-18); CO2 27.1 mmol/L (21.0-32.0); CREATININE 1.9 mg/dL (0.70-1.30); Calcium 7.9 mg/dL (8.5-10.1); Chloride 110 mmol/L (98-107); Estimated GFR 33.94 (mL/min/1.73m2); Glucose 138 mg/dL (74-106); Potassium 4.6 mmol/L (3.5-5.1); Sodium 145 mmol/L (136-145)
--- NOTE | 2021-08-10 09:44 | W.PM.DS.N ---
Date of service: 08/10/21 Time of Service: 11:40 DS: Diagnosis Discharge Diagnosis (1) S/P bladder tumor excision with fulguration: Status: Acute Discharge Plan Disposition Patient Disposition: HOME Condition: Stable Discharge Details Reason For Visit: Bladder mass Admit Date/Time: 08/09/21 09:12 Admit Provider: Raymon Delgadillo Attending Provider: Raymon Delgadillo [facility] Hospital Course: The patient was taken to the operating room on 08/09/2021. He underwent a cystoscopy and a right retrograde pyelogram. We identified a large bladder mass that occluded the left ureteral orifice and extended out into the prostatic urethra. We performed transurethral resection of the large tumor and placed a irrigating catheter. We ran continuous bladder irrigation overnight. Initially, his urine was quite bloody but then the urine cleared. On postoperative day #1, we hand irrigated multiple blood clots from the bladder and discontinued his bladder irrigation. The urine remained transparent with no irrigation. On postoperative day #1, his hemoglobin was 9, so no transfusion was recommended. He is being discharged to home with his catheter in place. Home Meds and New Rx's Prescriptions: New tramadol 50 mg tablet 50 mg PO Q8H PRN (Reason: pain) Qty: 10 RF: 0 sulfamethoxazole-trimethoprim 800-160 mg tablet 1 tab PO DAILY Qty: 7 RF: 0 Discontinued warfarin 2.5 mg tablet 2.5 mg PO DAILY Qty: 100 RF: 2 warfarin 5 mg tablet 5 mg PO .COMPLEX Qty: 100 RF: 5 No Action acetaminophen [Arthritis Pain Relief (acetam)] 650 mg tablet extended release 1,300 mg PO HS PRN Qty: 60 RF: 5 polyethylene glycol 3350 [Miralax] 17 gram/dose powder 17 gm PO DAILY PRN (Reason: constipation) Qty: 238 RF: 4 bacitracin 500 unit/gram ointment 1 applic topical BID Qty: 30 RF: 0 allopurinol 300 mg tablet 300 mg PO DAILY Qty: 90 RF: 4 diltiazem HCl 120 mg capsule,extended release 24hr 120 mg PO QAM Qty: 90 RF: 4 rqrgprk-pdhtgjsv-R6-B2-FA-iron 0.45-9-67 oqwk-zh-qsxg capsule 6 cap PO DAILY RF: 0 omega 1-xru-hii-fish oil [Fish Oil] 1,000 mg (120 mg-180 mg) capsule 1 cap PO DAILY RF: 0 ascorbic acid (vitamin C) 250 mg tablet 250 mg PO DAILY RF: 0 cholecalciferol (vitamin D3) 25 mcg (1,000 unit) capsule 50 mcg PO DAILY RF: 0 lisinopril 10 mg tablet 10 mg PO DAILY Qty: 90 RF: 4 bumetanide 1 mg tablet 2 mg PO QAM Qty: 180 RF: 4 Discharge Instructions Additional Instructions: Barnes to leg bag Catheter plug to irrigation port The patient should resume all home medications with the exception of warfarin. He should hold the warfarin until he comes back into the office and has his catheter removed. Follow-up in my office in 1 week to have the catheter removed and in 2 weeks to discuss the surgical pathology. Prescriptions for antibiotic and pain medication sent to the pharmacy. Activity:: no straining or lifting f Equipment/Supplies:: barnes to leg bag Diet:: As Tolerated Discharge Orders Discharge Orders: Discharge Order (Routine); Ordered 08/10/21 Ordered By: Raymon Delgadillo DS: Summary Time Spent with Patient providing and/or coordinating discharge services: Less than 30 minutes Status at Discharge Functional status at discharge: independent ambulation Overall status at discharge: patient is back to baseline Mental Status: mental status grossly normal Speech and Movement: speech and movement normal Mood: congruent mood Affect: normal affect Exam Narrative Exam Narrative: At the time of this charge, he does not appear septic or toxic His vital signs are documented elsewhere His lungs have decreased breath sounds. Cardiac exam shows a regular rate and rhythm His abdomen is obese but soft with no peritoneal signs The urine in his catheter is transparent He has pitting edema in both lower extremities He is awake and alert His hemoglobin on the morning of discharge is 9.2 Psych Mental Status: mental status grossly normal Speech and Movement: speech and movement normal Mood: congruent mood Affect: normal affect DS: Data Vitals/I&O Vitals and I&O: Vital Signs Temperature 36.7 C 08/10/21 08:03 Temperature Source Tympanic 08/10/21 08:03 Pulse 98 H 08/10/21 08:03 Pulse Rhythm Irregular 08/09/21 20:25 Respiratory Rate 18 08/10/21 08:03 Respiratory Effort 08/09/21 20:25 Respiratory Depth Normal 08/09/21 20:25 Respiratory Pattern Normal 08/09/21 20:25 Blood Pressure 106/55 L 08/10/21 08:03 Pulse Oximetry 97 08/10/21 08:03 Respiratory End-tidal CO2 33 08/09/21 09:44 Oxygen Delivery Method Room Air 08/10/21 08:03 Oxygen Flow Rate 0 08/10/21 08:03 Pain Level 0 08/10/21 08:03 Comment 08/09/21 10:18 Intake & Output 08/09/21 08/09/21 08/10/21 11:59 23:59 11:59 Intake Total 300 / 0290.858 2104.666 / 1946.666 Balance 300 / 0680.417 8155.666 / 1946.666 Weight 139.5 kg Intake: IV 300 / 7885.096 5460.666 / 1946.666 Other: Urine Color [place] Urine Appearance Hematuria Clots Clots Emesis Description None Data Completed and Pending Labs on day of discharge: Labs from last 24 hours 08/10/21 08/10/21 08/10/21 06:39 05:35 05:35 WBC Pending RBC Pending Hgb Pending Hct Pending MCV Pending MCH Pending MCHC Pending RDW Pending Plt Count Pending MPV Pending PT Pending INR Pending Sodium 145 Potassium 4.6 Chloride 110 H Carbon Dioxide 27.1 Anion Gap 7.9 BUN 27 H Creatinine 1.9 H Estimated GFR/1.73 m2 33.94 Glucose 138 H Calcium 7.9 L PFSH Active Problem List S/P bladder tumor excision with fulguration (Acute) Hyperlipidemia (Chronic) 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) Anticoagulated on warfarin (Chronic) Atrial fibrillation (Chronic 07/09/13) Benign neoplasm of colon (Chronic) Chronic systolic congestive heart failure, NYHA class 2 (Chronic 12/15/15) Diastasis recti (Chronic) Gynecomastia (Chronic 12/30/14) Hearing loss (Chronic) Hydrocele (Chronic) Lymphedema of both lower extremities (Chronic 07/03/15) Obesity (Chronic) 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 denies Diverticulosis of colon without diverticulitis (12/16/08) per colonoscopy Hematemesis pt. 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 reports only Left side, pt. reports they only removed part of right Cholecystectomy (05/26/17) Colonoscopy - [facility] (07/18/12) DR. SPENCE; TUBULAR ADENOMAS EGD - [facility] (07/18/12) History of esophagogastroduodenoscopy History of hip surgery R side from accident, pt. reports plate and pin RFA 2013, pt. 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 Social History Smoking/Tobacco Use Status: Former Tobacco Use tobacco type: cigarettes, pipe and cigars Smokeless tobacco user: snuff Quit status: not considering quitting Second Hand Exposure: Yes Smoking risk assessment performed?: Yes Alcohol Intake: former Drug use: Never Caregiver/Support person: No Household members: none Communication Needs: Hard of Hearing and Cannot Read Do you need help understanding health information?: Rarely Pets and animals: No Sexually active: No Current gender identity: male What is your relationship status?: How often do you talk on the phone with friends or family?: three or more times per week How often do you get together with friends or relatives?: once per week Panel score (0-1 are the most socially isolated patients): 1 Duration: < 15 minutes/day Frequency: 1-2 times per week Anna/Hindu: No preference Seatbelt use: always Helmet use: No Do you feel safe in your relationship?: Yes
[2021-08-10] MEDS: Normal Saline Flush 10 ML SYR IV (10:29)
[2021-08-10 11:45] LABS: HCT 27.9 % (40.0-50.0); HGB 9.2 g/dL (13.5-17.5); MCH 31.3 pg (27.0-33.0); MCV 94.9 fL (80-95); RBC 2.94 10^6/uL (4.36-5.78); RDW 13.4 % (11.8-14.1); RDW-SD 46.6 fL; WBC 12.41 10^3/uL (4.4-10.8)
[2021-08-10 11:46] LABS: INR 1.1 (0.9-1.1); MPV 11.3 fL (8.0-11.0); Platelet Count 205 10^3/uL (130-400); Prothrombin Time 11.4 sec (9.3-11.0)
--- NOTE | 2021-08-10 15:29 | CHAPLAIN ---
Jorge was in bed when I visited. He was pleasant and engaged in a conversation. He has been attending a yazidism in [facility] for the past couple of years he said. Previously and when he was younger he said he was not interested in yazidism, but now it has become important to him. When I asked if he wanted me to let the yazidism leadership know he is here, he said no quickly. He told me that he only wants his daughter and his DPOA to know that he is here. I will continue to visit.
== END 2021-08-10 17:26 | disposition home or self-care (01) | DRG 669 ==
LOC: MS 10:05
PROVIDERS: Admitting Provider Urology; PCP Nurse Practitioner; Visit Provider Urology
PROC: 0TBB8ZZ Excision of Bladder, Via Natural or Artificial Opening Endoscopic (ICD-10-PCS; CPT 52240; principal; 2021-08-09 07:30)
DX: C67.8 Malignant neoplasm of overlapping sites of bladder (principal); I50.22 Chronic systolic (congestive) heart failure; Z68.41 Body mass index [BMI] 40.0-44.9, adult; I13.0 Hypertensive heart and chronic kidney disease with heart failure and stage 1 through stage 4 chronic kidney disease, or unspecified chronic kidney disease; R31.9 Hematuria, unspecified; Z20.822 Contact with and (suspected) exposure to COVID-19; Z79.01 Long term (current) use of anticoagulants; I48.91 Unspecified atrial fibrillation; E78.5 Hyperlipidemia, unspecified; I89.0 Lymphedema, not elsewhere classified; E66.9 Obesity, unspecified; N18.2 Chronic kidney disease, stage 2 (mild); Z85.3 Personal history of malignant neoplasm of breast; Z87.891 Personal history of nicotine dependence
CPT/HCPCS: 52240; 80048; 85027; 88305; 99238; 74420; 85610; 88307; J0690; J1100; J2405; J2704; Q9967

== ENCOUNTER → 2021-08-17 07:51 | Outpatient (BNVA) | payer MEDICARE, SELFPAY | PROVIDERS: PCP Nurse Practitioner; Referring Provider Nurse Practitioner; Visit Provider Urology | DX: Z48.816 Encounter for surgical aftercare following surgery on the genitourinary system (principal) | CPT/HCPCS: 99213 ==

== ENCOUNTER → 2021-09-03 10:57 | Outpatient (BNVA) | payer MEDICARE, SELFPAY | PROVIDERS: PCP Nurse Practitioner; Referring Provider Nurse Practitioner; Visit Provider Urology | DX: C67.9 Malignant neoplasm of bladder, unspecified (principal) | CPT/HCPCS: 99213 ==

== ENCOUNTER 2021-09-27 02:52 | Outpatient (CLI) | payer MEDICARE, SELFPAY ==
[2021-09-27 14:50] LABS: HCT 31.3 % (40.0-50.0); HGB 9.6 g/dL (13.5-17.5); MCH 29.2 pg (27.0-33.0); MCHC 30.7 % (32.0-36.0); MCV 95.1 fL (80-95); MPV 10.8 fL (8.0-11.0); Platelet Count 271 10^3/uL (130-400); RBC 3.29 10^6/uL (4.36-5.78); RDW 14.7 % (11.8-14.1); RDW-SD 51.1 fL
[2021-09-27 15:43] LABS: Anion Gap 12.1 mmol/L (3-11); BUN 33 mg/dL (7-18); CO2 24.9 mmol/L (21.0-32.0); CREATININE 1.5 mg/dL (0.70-1.30); Calcium 8.7 mg/dL (8.5-10.1); Chloride 106 mmol/L (98-107); Estimated GFR 44.59 (mL/min/1.73m2); Glucose 105 mg/dL (74-106); Potassium 4.2 mmol/L (3.5-5.1); Sodium 143 mmol/L (136-145)
== END 2021-09-27 02:53 | disposition home or self-care (01) ==
PROVIDERS: PCP Nurse Practitioner; Visit Provider Nurse Practitioner
DX: I10 Essential (primary) hypertension (principal); Z79.01 Long term (current) use of anticoagulants; E78.5 Hyperlipidemia, unspecified
CPT/HCPCS: 36415; 80048; 85027; 85610

== ENCOUNTER 2021-11-19 19:10 | Outpatient (REF) | payer MEDICARE, SELFPAY ==
[2021-11-19 12:31] LABS: INR 1.8 (0.9-1.1); Prothrombin Time 17.8 sec (9.3-11.0)
== END 2021-11-19 19:11 | disposition home or self-care (01) ==
LOC: LBN 19:10
PROVIDERS: PCP Nurse Practitioner; Visit Provider Nurse Practitioner
DX: Z79.01 Long term (current) use of anticoagulants (principal)
CPT/HCPCS: 85610

== ENCOUNTER 2022-08-22 12:05 | Outpatient (CLI) | payer OTHER, SELFPAY ==
[2022-08-22 11:56] LABS: Abs Immature Grans 0.01 10^3/uL (0.0-0.06); Absolute Basophil Count 0.02 10^3/uL (0.0-0.2); Absolute Eosinophil Count 0.35 10^3/uL (0.0-0.7); Absolute Lymphocyte Count 0.82 10^3/uL (1.2-3.4); Absolute Monocyte Count 0.93 10^3/uL (0.1-0.8); Absolute Neutrophil Count 2.79 10^3/uL (1.2-6.7); Basophils % 0.4; Eosinophils % 7.1; HCT 37.4 % (40.0-50.0); HGB 12.4 g/dL (13.5-17.5); Immature Grans % 0.2; Lymphocytes % 16.7; MCH 31.8 pg (27.0-33.0); MCHC 33.2 % (32.0-36.0); MCV 96 fL (80-95); Monocytes % 18.9; Neutrophils % 56.7; Platelet Count 217 10^3/uL (130-400); RDW 13.8 % (11.8-14.1); RDW-SD 48.5 fL; WBC 4.92 10^3/uL (4.4-10.8)
[2022-08-22 12:02] LABS: INR 1.5 (0.9-1.1); Prothrombin Time 14.6 sec (9.3-11.0)
[2022-08-22 12:08] LABS: ALT 27 U/L (16-63); AST 22 U/L (15-37); Albumin 3.4 g/dL (3.4-5.0); Alkaline Phosphatase 189 U/L (46-116); Anion Gap 6.6 mmol/L (3-11); BUN 30 mg/dL (7-18); Bilirubin, Total 0.6 mg/dL (0.2-1.0); CO2 27.4 mmol/L (21.0-32.0); CREATININE 1.6 mg/dL (0.70-1.30); Calcium 8.9 mg/dL (8.5-10.1); Chloride 104 mmol/L (98-107); Estimated GFR 41.96 (mL/min/1.73m2); Glucose 101 mg/dL (74-106); Potassium 4.4 mmol/L (3.5-5.1); Sodium 138 mmol/L (136-145); Total Protein 7.7 g/dL (6.4-8.2)
== END 2022-08-22 12:06 | disposition home or self-care (01) ==
LOC: LBO 12:07
PROVIDERS: PCP Family Medicine; Visit Provider Family Medicine
DX: N18.32 Chronic kidney disease, stage 3b (principal); I48.91 Unspecified atrial fibrillation; Z79.01 Long term (current) use of anticoagulants
CPT/HCPCS: 36415; 80053; 85025; 85610

== ENCOUNTER 2024-10-08 12:49 | Outpatient (CLI) | payer MEDICARE, SELFPAY ==
--- NOTE | 2024-10-08 10:15 | DI.RAD_ITS ---
Exam(s) XR CHEST 2V PA LATERAL EXAM: XR CHEST 2V PA LATERAL CLINICAL HISTORY: pneumonia, ill feeling, R68.89-other general symptoms and signs TECHNIQUE: 2D digital imaging was performed. Two views. COMPARISON: CR CHEST 2 VIEWS PA,LAT from 01/13/2018 CT CHEST ABD PELVIS WO CONTRAST from 01/14/2018 FINDINGS: HEART: Mildly enlarged. Aorta: Not dilated. PULMONARY VASCULATURE: Normal. MEDIASTINUM: Unremarkable. LUNGS: Question of increased densities seen at the left lower lobe. PLEURAL SPACE: Tiny bilateral pleural effusions. No pneumothorax. BONE:Syndesmophyte formation along spine. SOFT TISSUES: Unremarkable. IMPRESSION: Question of left lower lobe infiltrate. Tiny bilateral pleural effusions. DATA REPOSITORY: RADIATION DOSE DELIVERED:
== END 2024-10-08 13:09 ==
LOC: DI 12:49
PROVIDERS: PCP Nurse Practitioner Family; Visit Provider Family Medicine
DX: R91.8 Other nonspecific abnormal finding of lung field (principal)
CPT/HCPCS: 71046

== ENCOUNTER 2024-10-08 16:43 | Outpatient (REF) | payer MEDICARE, SELFPAY ==
[2024-10-08 16:11] LABS: Abs Immature Grans 0.03 10^3/uL (0.0-0.06); Absolute Basophil Count 0.05 10^3/uL (0.0-0.2); Absolute Eosinophil Count 0.18 10^3/uL (0.0-0.7); Absolute Lymphocyte Count 0.65 10^3/uL (1.2-3.4); Absolute Monocyte Count 0.73 10^3/uL (0.1-0.8); Absolute Neutrophil Count 4.98 10^3/uL (1.2-6.7); Basophils % 0.8 %; Eosinophils % 2.7 %; HCT 34.2 % (40.0-50.0); HGB 10.9 g/dL (13.5-17.5); Immature Grans % 0.5 %; Lymphocytes % 9.8 %; MCH 30.5 pg (27.0-33.0); MCHC 31.9 % (32.0-36.0); MCV 96 fL (80-95); MPV 10.6 fL (8.0-11.0); Neutrophils % 75.2 %; Platelet Count 323 10^3/uL (130-400); RBC 3.57 10^6/uL (4.36-5.78); RDW 13.6 % (11.8-14.1); RDW-SD 48.5 fL; WBC 6.62 10^3/uL (4.4-10.8)
[2024-10-08 16:26] LABS: ALT 29 U/L (16-63); AST 33 U/L (15-37); Albumin 2.5 g/dL (3.4-5.0); Alkaline Phosphatase 326 U/L (46-116); Anion Gap 6.2 mmol/L (3-11); BUN 23 mg/dL (7-18); Bilirubin, Total 1.07 mg/dL (0.2-1.0); CO2 32.8 mmol/L (21.0-32.0); CREATININE 1.6 mg/dL (0.70-1.30); Calcium 8.6 mg/dL (8.5-10.1); Chloride 107 mmol/L (98-107); Estimated GFR 41.44 (mL/min/1.73m2); Glucose 133 mg/dL (74-106); Potassium 3.6 mmol/L (3.5-5.1); Sodium 146 mmol/L (136-145); Total Protein 7.1 g/dL (6.4-8.2)
[2024-10-08 18:09] LABS: Prothrombin Time > 83.4 sec (9.1-11.1)
== END 2024-10-08 16:44 | disposition home or self-care (01) ==
LOC: LBN 16:43
PROVIDERS: PCP Nurse Practitioner Family; Visit Provider Family Medicine
DX: I10 Essential (primary) hypertension (principal); J06.9 Acute upper respiratory infection, unspecified; Z79.01 Long term (current) use of anticoagulants
CPT/HCPCS: 80053; 85025; 85610

== ENCOUNTER 2024-10-09 15:08 | Outpatient (REF) | payer MEDICARE, SELFPAY ==
[2024-10-09 14:22] LABS: Prothrombin Time > 83.4 sec (9.1-11.1)
--- OUTSIDE RECORDS SUMMARY | 2024-10-09 15:16 | XMS_ITS | Encounter Summary ---
Author Organization [facility] [place] [address] Care Team Providers Care Career Professional Name Role Phone SomXander gonsales Primary Care Provider [phone] Reason for Visit * Reason Comments Follow-up Encounter Details Date Type Department Care Team (Late st Contact Info) Description 05/22/2017 11:00 AM EDT Office Visit [place] [address] Jeanie Carnes, [employer] [facility] [place] [address] Hospital discharge follow-up Social History Tobacco Use Types Packs/Day Years Used Date Smoking Tobacco: Former Cigarettes Q uit: 1960 Smokeless Tobacco: Former Alcohol Use Standard Drinks/Week Comments Yes 0 (1 standard drink = 0.6 oz pur e alcohol) occ. Sex and Gender Information Value Date Recorded Sex Assigned at Not on file Gender Identity Not on file Sexual Orientation Not on file documented as of this encounter Progress Notes * Jeanie Carnes, [employer] - 05/22/2017 11:00 AM EDT Jorge Stone presents today for hospital check. Jorge is s/p on with the following injuries identified: Mildly displaced vertically oblique fracture through the C3 vertebral body and nondisplaced right lamina fracture. Highly comminuted right posterior acetabular fracture with posterior dislocation of the right femoral head Since discharge, Jorge reports he has been doing well. He denies any new area of pain, or new complaint. He is eating, moving his bowels and voiding without difficulty. Review of Systems: GENERAL:denies fevers chills, fatigue, sweats, anorexia HEENT:Denies headaches, visual changes,sore throat, difficulty swallowing RESPIRATORY:Denies shortness of breath, cough, hemoptysis, or sputum production CARDIAC:Denies chest pain, dyspnea on exertion, lightheadedness, or syncopal symptoms GASTROINTESTINAL: Denies abdominal pain, nausea, vomiting, dysphagia, constipation, diarrhea, hematochezia, change in bowel habits, or jaundice GENITOURINARY:Denies dysuria, hematuria, flank pain VASCULAR:denies swelling or redness in the extremities HEMATOLOGIC:Denies new bruises, bleeding or petechiae ENDOCRINE:denies polyuria,polydipsia EXAM: GEN:Well appearing, calm of affect NAD SKIN:Intact, no new areas of ecchymosis or laceration, no jaundice HEENT:sclera clear non icteric, mucous membranes are pink and moist CARD:S1S2 rrr no cmr appreciated CHEST:Cage stable, excursion equal, respiration regular even and non labored, CTA ant/post. ABD:soft non tender, non distended, I can appreciate no areas of fullness. VASC:2+palpable peripheral pulses, cap refill <2 sec, no edema, calves are soft and non tender, neg JVD at 30 degrees NEURO:Jorge is AAOX3, fluent and non focal, appropriately conversant EXT:5/5 strengths, all four extremities IMPRESSION/PLAN: Unremarkable post discharge course Appropriate subspecialty follow up in place At this time, no further scheduled general surgery follow up indicated however, pt understands to feel free to call us should anything specific arise or should there be any question or concern documented in this encounter Plan of Treatment Not on file documented as of this encounter Visit Diagnoses Diagnosis Hospital discharge follow-up Other follow-up examination documented in this encounter Care Teams Career Professional Relationship Specialty Start Date End Date Xander Kearns DO [address] [place] [address] PCP - General 08/17/10 documented as of this encounter
--- OUTSIDE RECORDS SUMMARY | 2024-10-09 15:16 | XMS_ITS | Encounter Summary ---
Author Organization [facility] Address [facility] [place] [address] Care Team Providers Care Event Staff Name Role Phone Xander Kearns DO Primary Care Provider Encounter Details Date Type Department Care Team (Latest Contact Info) Description 06/06/2017 8:25 AM EDT - 06/06/2017 11:59 PM EDT Hospital Encounter XRay at [address] [place] [address] Corey De Santiago MD [facility] [place] [address] Status post total hip replacement, right due to posterior dislocation and acetabular fracture. DOS: 04/13/2017. Dr. De Santiago Discharge Disposition: Home Social History Tobacco Use Types Packs/Day Years [...] on file documented as of this encounter Medications at Time of Discharge Medication Sig Dispensed Refills Start Date End Date amoxicillin-clavulanate (AUGMENTIN) 875-125 mg Tablet Take 1 tablet by mouth 2 times daily. warfarin (COUMADIN) 5 mg Tablet Take 5 mg by mouth daily. furosemide (LASIX) 20 mg Tablet Take 20 mg by mouth 2 times daily. potassium chloride (MICRO-K) 10 mEq Capsule, Sustained Release Take 20 mEq by mouth daily. nystatin (MYCOSTATIN) Powder Apply topically 2 times daily. oxyCODONE 5 mg Capsule Take 5 mg by mouth every 6 hours as needed. allopurinol (ZYLOPRIM) 100 mg Tablet Take 100 mg by mouth daily. warfarin (COUMADIN) 2.5 mg Tablet Take 2.5 mg by mouth daily. traMADol (ULTRAM) 50 mg Tablet Take 50-100 mg by mouth nightly as needed for Pain. acetaminophen (TYLENOL) 325 mg Tablet Take 2 tablets by mouth every 6 hours. 30 tablet 1 04/24/2017 polyethylene glycol (MIRALAX) 17 gram Powder in Packet Take 17 g by mouth daily. 14 each 04/24/2017 DILTiazem (DILTIAZEM CD) 120 mg Capsule, Sust. Release 24 hr Take 120 mg by mouth daily. 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 DOS: 04/13/2017. Dr. De Santiago documented in this encounter Results * XR Pelvis & Lat Hip Right (Generic) (06/06/2017 8:52 AM EDT) Anatomical Region Laterality Modality Pelvis, Hip Right Digital Radiogra phy Impressions 06/06/2017 10:19 AM EDT Stable appearance of a right total hip arthroplasty and ORIF of the right acetabulum. Narrative 06/06/2017 10:19 AM EDT EXAMINATION: XR PELVIS AND LAT HIP RIGHT (GENERIC) CLINICAL HISTORY: s/p right hip orif and TRISTA TECHNIQUE: AP pelvis and AP and lateral views of the right hip. COMPARISON: May 05, 2017. FINDINGS: Plate-screw fixation of a comminuted right acetabular fracture and a right total hip arthroplasty are redemonstrated without change in alignment. There is no evidence of interval hardware complication. Procedure Note Tino Charles MD - 06/06/2017 EXAMINATION: XR PELVIS AND LAT HIP RIGHT (GENERIC) CLINICAL HISTORY: s/p right hip orif and TRISTA TECHNIQUE: AP pelvis and AP and lateral views of the right hip. COMPARISON: May 05, 2017. FINDINGS: Plate-screw fixation of a comminuted right acetabular fracture and a righttotal hip arthroplasty are redemonstrated without change in alignment. There isno evidence of interval hardware complication. IMPRESSION Stable appearance of a right total hip arthroplasty and ORIF of theright acetabulum. 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 DOS: 04/13/2017. Dr. De Santiago documented in this encounter Care Teams Event Staff Relationship Specialty Start Date End Date Xander Kearns DO [address] [place] [address] PCP - General 08/17/10 documented as of this encounter
--- OUTSIDE RECORDS SUMMARY | 2024-10-09 15:16 | XMS_ITS | Encounter Summary ---
Author Organization [facility] Address [facility] [place] [address] Care Team Providers Care Spectacle Truer Name Role Phone Xander Kearns Primary Care Provider [phone] Encounter Details Date Type Department Care Team (Latest Contact Info) Description 05/02/2017 2:18 PM EDT - 05/02/2017 11:59 PM EDT Hospital Encounter XRay at [address] [place] [id number] Mikey Mendosa MD [address] [place] [address] [address] Closed fracture of third cervical vertebra, unspecified fracture morphology, 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 Discharge Disposition: Home Social History Tobacco Use [...] Sig Dispensed Refills Start Date End Date acetaminophen (TYLENOL) 325 mg Tablet Take 2 tablets by mouth every 6 hours. 30 tablet 1 04/24/2017 polyethylene glycol (MIRALAX) 17 gram Powder in Packet Take 17 g by mouth daily. 14 each 04/24/2017 DILTiazem (DILTIAZEM CD) 120 mg Capsule, Sust. Release 24 hr Take 120 mg by mouth daily. oxyCODONE (ROXICODONE) 5 mg Tablet Take 1 tablet by mouth every 4 hours as needed for Pain. 30 tablet 04/24/2017 05/22/2017 senna-docusate (PERICOLACE) 8.6-50 mg Tablet Take 1 tablet by mouth 2 times daily. 60 tablet 04/24/2017 05/22/2017 bumetanide (BUMEX) 2 mg Tablet Take 2 mg by mouth daily. 05/22/2017 metOLazone (ZAROXOLYN) 2.5 mg Tablet Take 2.5 mg by mouth daily. 05/22/2017 documented as of this encounter Plan of Treatment Not on file documented as of this encounter Procedures Procedure Name Priority Date/Time Associated Diagnosis Comments XR CERVICAL SPINE 2 OR 3 VIEWS Routine 05/02/2017 2:29 PM EDT Closed fracture of third cervical vertebra, unspecified fracture morphology, 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 documented in this encounter Results * XR Cervical Spine 2 Or 3 Views (05/02/2017 2:29 PM EDT) Anatomical Region Laterality Modality C-spine N/A Digital Radiogra phy Impressions 05/02/2017 3:27 PM EDT Slight change in alignment of C3 vertebral body fractures described above. Narrative 05/02/2017 3:27 PM EDT EXAMINATION: XR CERVICAL SPINE 2 OR 3 VIEWS CLINICAL HISTORY: C3 fx, stability? TECHNIQUE: AP and lateral cervical spine COMPARISON: CT scan 04/13/2017 FINDINGS: There is increased distraction of the C3 vertebral body fracture with mild increased angulation along the inferior endplate. There is stable bony fusion anterior C4-C6 vertebral bodies. Minimal focal thickening prevertebral soft tissues likely related to prior hematoma. No new fractures identified. Procedure Note Lori Lema MD - 05/02/2017 EXAMINATION: XR CERVICAL SPINE 2 OR 3 VIEWS CLINICAL HISTORY: C3 fx, stability? TECHNIQUE: AP and lateral cervical spine COMPARISON: CT scan 04/13/2017 FINDINGS: There is increased distraction of the C3 vertebral body fracture withmild increased angulation along the inferior endplate. There is stable bonyfusion anterior C4-C6 vertebral bodies. Minimal focal thickening prevertebralsoft tissues likely related to prior hematoma. No new fractures identified. IMPRESSION Slight change in alignment of C3 vertebral body fractures describedabove. Mikey Mendosa MD IMG DX ORDERABLES documented in this encounter Visit Diagnoses Diagnosis Closed fracture of third cervical vertebra, unspecified fracture morphology, 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 documented in this encounter Care Teams Spectacle Truer Relationship Specialty Start Date End Date Xander Kearns DO [address] [facility] [address] [place] [address] PCP - General 08/17/10 documented as of this encounter
--- OUTSIDE RECORDS SUMMARY | 2024-10-09 15:16 | XMS_ITS | Encounter Summary ---
Author Organization [facility] Address [facility] [place] [id number] Care Team Providers Care Weather Teacher Name Role Phone SomXander gonsales Primary Care Provider [phone] Reason for Referral * Physical Therapy (Routine) - Closed Specialty Diagnoses / Procedures Referred By Kaylynn zaragoza Referred To Contact Diagnoses Closed displaced fracture of anterior wall of right acetabulum, 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 Corey De Santiago MD [facility] [place] [address] Unknown None Referral ID Status Reason Start Date Expiration Date V isits Requested Visits Authorized [id number] Closed Evaluate and Treat 04/26/2017 10/23/2017 12 12 Reason for Visit * Reason Onset Date Comments Physical Therapy 04/26/2017 Encounter Details Date Type Department Care Team (Late st Contact Info) Description 04/26/2017 Tele[place] [address] Corey De Santiago MD [facility] [place] [address] Physical Therapy Social History Tobacco Use Types Packs/Day Years Used Date Smoking Tobacco: Former Smokeless Tobacco: Former Alcohol Use Standard Drinks/Week Comments Yes 0 (1 standard drink = 0.6 oz pur e alcohol) Sex and Gender Information Value Date Recorded Sex Assigned at Not on file Gender Identity Not on file Sexual Orientation Not on file documented as of this encounter Miscellaneous Notes * Telephone Encounter - Dominga Matos - 04/26/2017 3:02 PM EDT Spoke with Rosa at [facility]. She had questions re: cervical collar and ability to lay bed flat for log rolling repositioning and patient hygiene. We thoroughly reviewed his discharge summary, C-collar instructions - laying bed flat for these purposes does not appear contrai ndicated, but told her I would need to have Spine Nurses confirm this. She also stated she had questions re: hip precautions and protocols. Entered PT referral with enhanced TRISTA precautions and faxedto [phone]. Also emailed all of our PT grids for all procedures and body parts per Rosa's request to [email or web address]. She was very appreciative of the call. documented in this encounter Plan of Treatment Scheduled Referrals Name Type Priority Associated Diagnoses Orde r Schedule Referral to Physical Therapy Outpatient Referral Routine Closed displaced fracture of anterior wall of right acetabulum, 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 Ordered: 04/26/2017 documented as of this encounter Visit Diagnoses Diagnosis Closed displaced fracture of anterior wall of right acetabulum, 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 documented in this encounter Care Teams Weather Teacher Relationship Specialty Start Date End Date Xander Kearns DO [address] [place] [address] PCP - General 08/17/10 documented as of this encounter
--- OUTSIDE RECORDS SUMMARY | 2024-10-09 15:16 | XMS_ITS | Encounter Summary ---
Author Organization [facility] Address [facility] [place] [address] Care Team Providers Care Food Writer Name Role Phone SomXander gonsales Primary Care Provider Encounter Details Date Type Department Care Team (Latest Contact Info) Description 05/02/2017 1:30 PM EDT - 05/02/2017 2:17 PM EDT Hospital Encounter XRay at [address] [place] [address] Quinton Dior MD [facility] [place] [address] Closed displaced fracture of anterior wall of right acetabulum, 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 Discharge Disposition: Home Social History [...] Priority Date/Time Associated Diagnosis Comments XR PELVIS MIN 3 VIEWS Routine 05/02/2017 2:29 PM EDT Closed displaced fracture of anterior wall of right acetabulum, 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 documented in this encounter Results * XR Pelvis Judet or In Out 3 views (05/02/2017 2:29 PM EDT) Anatomical Region Laterality Modality Pelvis N/A Digital Radiogra phy Impressions 05/02/2017 3:11 PM EDT Status post ORIF right posterior acetabular fracture and placement of right total hip arthroplasty. Intact hardware without change in position. No new fracture or complication. Narrative 05/02/2017 3:11 PM EDT EXAMINATION: XR PELVIS JUDET OR IN OUT 3 VIEWS CLINICAL HISTORY: sp ORIF acetabulum, R TRISTA, please include entire implant TECHNIQUE: 4 views of the pelvis were obtained, including left and right Judet views. COMPARISON: 04/17/2017 FINDINGS: Stable position of acetabular plate spanning a comminuted posterior acetabular fracture. Fracture fragments are in anatomic alignment. Stable position of plate and screws. No new fracture identified. Stable position of right total hip arthroplasty. Femoral head appears well-seated within the acetabular component. No dislocation or subluxation. One of the screws fixing the acetabulum extends into the pelvis to a similar degree as previously. Left hip joint space unremarkable. Sacroiliac joints are symmetric. Multiple pelvic phleboliths are again seen. No focal osseous lesion. Procedure Note Laquita Higgins MD - 05/02/2017 EXAMINATION: XR PELVIS JUDET OR IN OUT 3 VIEWS CLINICAL HISTORY: sp ORIF acetabulum, R TRISTA, please include entireimplant TECHNIQUE: 4 views of the pelvis were obtained, including left and right Judetviews. COMPARISON: 04/17/2017 FINDINGS: Stable position of acetabular plate spanning a comminuted posterioracetabular fracture. Fracture fragments are in anatomic alignment. Stable position ofplate and screws. No new fracture identified. Stable position of right total hip arthroplasty. Femoral head appears well-seated within the acetabular component. No dislocation orsubluxation. One of the screws fixing the acetabulum extends into the pelvis to a similardegree as previously. Left hip joint space unremarkable. Sacroiliac joints are symmetric.Multiple pelvic phleboliths are again seen. No focal osseous lesion. IMPRESSION Status post ORIF right posterior acetabular fracture and placement ofright total hip arthroplasty. Intact hardware without change in position. Nonew fracture or complication. Quinton Dior MD IMG DX ORDERABLES documented in this encounter Visit Diagnoses Diagnosis Closed displaced fracture of anterior wall of right acetabulum, 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 documented in this encounter Care Teams Food Writer Relationship Specialty Start Date End Date Xander Kearns DO [address] [place] [address] PCP - General 08/17/10 documented as of this encounter
--- OUTSIDE RECORDS SUMMARY | 2024-10-09 15:16 | XMS_ITS | Encounter Summary ---
Author Organization [facility] Address [facility] [place] [address] Care Team Providers Care Typing Element Machine Operator Name Role Phone SomXander gonsales Primary Care Provider [phone] Encounter Details Date Type Department Care Team (Latest Contact Info) Description 05/05/2017 2:35 PM EDT - 05/05/2017 11:59 PM EDT Hospital Encounter XRay at [address] [place] [address] Lissa Manzanares, [facility] [place] [address] Closed displaced fracture of anterior wall of right acetabulum with routine healing, subsequent encounter; History of total hip replacement, right Discharge Disposition: Home Social History Tobacco Use [...] Name Priority Date/Time Associated Diagnosis Comments XR HIP 2-3 VIEWS RIGHT Routine 05/05/2017 3:01 PM EDT Closed displaced fracture of anterior wall of right acetabulum with routine healing, subsequent encounter History of total hip replacement, right documented in this encounter Results * XR Hip AP & Lat Right (05/05/2017 3:01 PM EDT) Anatomical Region Laterality Modality Hip Right Digital Radiogra phy Narrative 05/05/2017 3:14 PM EDT EXAMINATION: XR HIP AP AND LAT RIGHT CLINICAL HISTORY: right hip acetabular fracture with TRISTA ? change from previous. see seperate Judet orders TECHNIQUE: AP and lateral view of the right hip. COMPARISON: May 02, 2017. FINDINGS: Stable alignment of the right acetabular plate fixation and right total hip arthroplasty. No periprosthetic lucency or hardware failure. No interval complication identified. Procedure Note Teresa Dominguez MD - 05/05/2017 EXAMINATION: XR HIP AP AND LAT RIGHT CLINICAL HISTORY: right hip acetabular fracture with TRISTA ? change fromprevious. see seperate Judet orders TECHNIQUE: AP and lateral view of the right hip. COMPARISON: May 02, 2017. FINDINGS: Stable alignment of the right acetabular plate fixation and right totalhip arthroplasty. No periprosthetic lucency or hardware failure. No interval complication identified. Lissa Manzanares APRN IMG DX ORDERABLES documented in this encounter Visit Diagnoses Diagnosis Closed displaced fracture of anterior wall of right acetabulum with routine healing, subsequent encounter History of total hip replacement, right documented in this encounter Care Teams Typing Element Machine Operator Relationship Specialty Start Date End Date Xander Kearns DO [address] [place] [address] PCP - General 08/17/10 documented as of this encounter
--- OUTSIDE RECORDS SUMMARY | 2024-10-09 15:16 | XMS_ITS | Encounter Summary ---
Author Organization [facility] Address [facility] [place] [address] Care Team Providers Care Detailer Pharmaceuticals Name Role Phone Xander Kearns Primary Care Provider Encounter Details Date Type Department Care Team (Late st Contact Info) Description 06/02/2017 Orders [place] [address] Corey De Santiago MD [facility] [place] [address] Status post total hip replacement, right due to posterior dislocation and acetabular fracture. DOS: 04/13/2017. Dr. De Santiago Social History Tobacco Use Types Packs/Day Years [...] on file documented as of this encounter Plan of Treatment Not on file documented as of this encounter Results * XR Pelvis & [...] acetabular fracture. DOS: 04/13/2017. Dr. De Santiago Status post total hip replacement, right due to posterior dislocation and acetabular fracture. DOS: 04/13/2017. Dr. De Santiago documented in this encounter Care Teams Detailer Pharmaceuticals Relationship Specialty Start Date End Date Xander Kearns DO [address] [place] [address] PCP - General 08/17/10 documented as of this encounter
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
--- OUTSIDE RECORDS SUMMARY | 2024-10-09 15:16 | XMS_ITS | Encounter Summary ---
Author Organization [facility] Address [facility] [place] [address] Care Team Providers Care Supervisor General Name Role Phone Som, Xander WINTER Primary Care Provider [phone] Encounter Details Date Type Department Care Team (Latest Contact Info) Description 06/02/2017 10:04 AM EDT - 06/02/2017 11:59 PM EDT Hospital Encounter XRay at [address] [place] [address] Obie Estrella MD [facility] [place] [address] Closed nondisplaced fracture of third cervical vertebra with routine healing, unspecified fracture morphology, subsequent encounter Discharge Disposition: Home Social History Tobacco [...] CERVICAL SPINE 2 OR 3 VIEWS Routine 06/02/2017 10:33 AM EDT Closed nondisplaced fracture of third cervical vertebra with routine healing, unspecified fracture morphology, subsequent encounter documented in this encounter Results * XR Cervical Spine 2 Or 3 Views (06/02/2017 10:33 AM EDT) Anatomical Region Laterality Modality C-spine N/A Digital Radiogra phy Impressions 06/02/2017 11:09 AM EDT Decreased conspicuity of C3 fracture suggesting partial healing. No other interval change. Narrative 06/02/2017 11:09 AM EDT EXAMINATION: XR CERVICAL SPINE 2 OR 3 VIEWS CLINICAL HISTORY: ACDF C2-3 TECHNIQUE: Sitting AP and lateral cervical spine COMPARISON: AP and lateral cervical spine 05/02/[address] cervical spine 04/13/2017 FINDINGS: In comparison to the prior radiograph, the vertically oriented fracture through the C3 vertebral body is less well-defined suggesting some interval healing. However, there is no change in the alignment of the C3 vertebral body or the overall appearance of the cervical spine. Again noted are the large bridging anterior osteophytes at C4 through C7. Procedure Note Joseph Gauthier MD - 06/02/2017 EXAMINATION: XR CERVICAL SPINE 2 OR 3 VIEWS CLINICAL HISTORY: ACDF C2-3 TECHNIQUE: Sitting AP and lateral cervical spine COMPARISON: AP and lateral cervical spine 05/02/[address] cervical spine 04/13/2017 FINDINGS: In comparison to the prior radiograph, the vertically oriented fracturethrough the C3 vertebral body is less well-defined suggesting some intervalhealing. However, there is no change in the alignment of the C3 vertebral body orthe overall appearance of the cervical spine. Again noted are the largebridging anterior osteophytes at C4 through C7. IMPRESSION Decreased conspicuity of C3 fracture suggesting partial healing. No other interval change. Obie Estrella MD IMG DX ORDERABLES documented in this encounter Visit Diagnoses Diagnosis Closed nondisplaced fracture of third cervical vertebra with routine healing, unspecified fracture morphology, subsequent encounter documented in this encounter Care Teams Supervisor General Relationship Specialty Start Date End Date Xander Kearns DO [address] [place] [address] PCP - General 08/17/10 documented as of this encounter
--- OUTSIDE RECORDS SUMMARY | 2024-10-09 15:16 | XMS_ITS | Encounter Summary ---
Author Organization [facility] Address [facility] [place] [address] Care Team Providers Care Infusion Nurse Name Role Phone SomXander gonsales Primary Care Provider [phone] Reason for Visit * Reason Onset Date Comments Appointment 05/03/2017 Encounter Details Date Type Department Care Team (Late st Contact Info) Description 05/03/2017 Telephone [place] [phone] Corey De Santiago MD [facility] [place] [address] Appointment Social History Tobacco Use Types Packs/Day Years [...] encounter Miscellaneous Notes * Telephone Encounter - Vero Javier - 05/08/2017 5:08 PM EDT Unable to contact, letter sent * Telephone Encounter - Vero Javier - 05/05/2017 8:06 AM EDT LM#2 to schedule follow up with Dr De Santiago in 4 wks for XR-R acetabulum ORIF and TRISTA 04/17/17; DOI 04/13/17. * Telephone Encounter - Margaret Wing - 05/03/2017 9:13 AM EDT Reason for visit: XR-R acetabulum ORIF and TRISTA 04/17/17; DOI 04/13/17--schedule 4 weeks from 05/[address] De Santiago's clinic. * Telephone Encounter - Margaret Wing - 05/03/2017 9:08 AM EDT LM #1 at [facility] for Nina Zamora to call to schedule follow-up appointment in Dr. De Santiago'sclinic 4 weeks from 05/02: XR-R distal femur ORIF 04/20/17; DOI 04/17/17, periprosthetic fracture (KEILY) documented in this encounter Plan of Treatment Not on file documented as of this encounter Visit Diagnoses Not on filedocumented in this encounter Care Teams Infusion Nurse Relationship Specialty Start Date End Date Xander Kearns DO [address] [place] [address] PCP - General 08/17/10 documented as of this encounter
--- OUTSIDE RECORDS SUMMARY | 2024-10-09 15:16 | XMS_ITS | Encounter Summary ---
Author Organization [facility] Address [facility] [place] [address] Care Team Providers Care National Expansion Recruiter Name Role Phone SomXander gonsales Primary Care Provider [phone] Reason for Visit * Reason Comments Follow Up Surgery R acetbuulum ORIF RT TRISTA DOS 04/17/17 Encounter Details Date Type Department Care Team (Late st Contact Info) Description 06/06/2017 9:30 AM EDT Office [place] [address] oCrey De Santiago MD [facility] [place] [address] Status post total hip replacement, right due [...] Sign Reading Time Taken Comments Blood Pressure 134/51 06/06/2017 9:17 AM EDT Pulse 81 06/06/2017 9:17 AM EDT Temperature - - Respiratory Rate - - Oxygen Saturation - - Inhaled Oxygen Concentration - - Weight 122.5 kg (270 lb) 06/06/2017 9:17 AM EDT Height 181.6 cm (5' 11.5) 06/06/2017 9:17 AM ED T Body Mass Index 37.13 06/06/2017 9:17 AM EDT documented in this encounter Progress Notes * Ana Myers PA - 06/06/2017 9:30 AM EDT Arthroplasty/Orthopaedic History: 1. Right acetabulum ORIF and TRISTA 04/17/17, DOI 04/13/17 HPI: Jorge Stone is a very pleasant 81 y.o. year-old male and is now 6 weeks post right totalhip replacement The patient has been doing well. Pain is controlled with current analgesics. Medication(s) being used: acetaminophen.. No fevers, chills, nausea, vomiting, or symptoms of infection. Jorge has been ambulating with a wheelchair and working with PT. He is not taking narcotic pain medicine. Unfortunately last week he had his gallbladder removed. Anticoagulation status Warfarin (goal INR ~2) managed by his PCP ROS: Denies: fever, chills, night sweats, nausea, or vomiting BP 134/51 Pulse 81 Ht 181.6 cm (5' 11.5) Wt (!) 122.5 kg (270 lb) BMI 37.13 kg/m2 Physical Exam: Well-appearing male in no acute distress. Alert and Oriented x 3 and answers all questions appropriately. The incision is well healed, with no signs of infection. Hip Exam: Right Leg length: Longer leg: equal Limb Length discrepancy: 0cm Motion: Flexion contracture: 0 Total degrees of Flexion:75 Total degrees of Abduction:15 Total degrees of Ext Rotation: 15 Total degrees of Internal Rotation: 10 Gait Abnormality: Not walking Pulses Palpable: Right PT: Yes Right DP:Yes Motor/Sensory: Right Distal Motor: Normal Distal Sensory: Normal Hip Abductors 3 X-RAYS: Multiple radiographic views were obtained at my request and reviewed with the patient. X-rays show a well-placed prosthesis with no evidence of fracture, subsidence, loosening, or periprosthetic complication. Questionnaire Responses:[facility] Surgical Postop Visit 06/06/2017 PROMIS-10 General Health Excellent PROMIS-10 Quality of Life Excellent PROMIS-10 Physical Health Excellent PROMIS-10 Mental Health Excellent PROMIS-10 Social Activity Excellent PROMIS-10 Everyday Activities A little PROMIS-10 Pain 6 PROMIS-10 Fatigue Moderate PROMIS-10 Social Roles Fair PROMIS-10 Anxious or Depressed Sometimes PROMIS PHYSICAL HEALTH SCORE 42.3 PROMIS MENTAL HEALTH SCORE 59 Satisfaction with Treatment Satisfied Choose Same Treatment Again Definitely no No flowsheet data found. No flowsheet data found. ASSESSMENT/PLAN: Mr. Stone is a 81 y.o. year old male status post right total hip replacement Doing well postoperatively. Continue weightbearing as tolerated and working on range of motion. We will see him back in 6 weeksfor repeat examination. X-rays will be needed at that time. We would like Jorge work on Weight bearin% WBAT for 2 weeks 75% WBAT for 2 weeks Then transition to 100% protected WBAT We discussed the appropriate precautions surrounding dental [...] tract infections. All questions were answered. Signed: COURTNEY Deleon 06/06/2017 documented in this encounter Plan of Treatment Not on file documented as of this encounter Visit Diagnoses Diagnosis Status post total hip replacement, right due to posterior dislocation and acetabular fracture. DOS: 04/13/2017. Dr. De Santiago documented in this encounter Care Teams National Expansion Recruiter Relationship Specialty Start Date End Date Xander Kearns DO [address] [place] [address] PCP - General 08/17/10 documented as of this encounter
--- OUTSIDE RECORDS SUMMARY | 2024-10-09 15:16 | XMS_ITS | Clinical Summary ---
Author Organization [facility] Address [facility] [place] [address] Care Team Providers Care Bottom Stainer Name Role Phone SomXander Primary Care Provider [phone] Allergies No known active allergies Medications Medication Sig Dispensed Refills Start Date End Date Status DILTiazem (DILTIAZEM CD) 120 mg Capsule, Sust. Release 24 hr Take 120 mg by mouth daily. Active acetaminophen (TYLENOL) 325 mg Tablet Take 2 tablets by mouth every 6 hours. 30 tablet 1 04/24/2017 Active Additional Information Patient taking differently:650 mg OralPRN, Reported on 06/02/2017 polyethylene glycol (MIRALAX) 17 gram Powder in Packet Take 17 g by mouth daily. 14 each 04/24/2017 Active allopurinol (ZYLOPRIM) 100 mg Tablet Take 100 mg by mouth daily. Active warfarin (COUMADIN) 2.5 mg Tablet Take 2.5 mg by mouth daily. Active traMADol (ULTRAM) 50 mg Tablet Take 50-100 mg by mouth nightly as needed for Pain. Active amoxicillin-clavula alberto (AUGMENTIN) 875-125 mg Tablet Take 1 tablet by mouth 2 times daily. Active warfarin (COUMADIN) 5 mg Tablet Take 5 mg by mouth daily. Active furosemide (LASIX) 20 mg Tablet Take 20 mg by mouth 2 times daily. Active potassium chloride (MICRO-K) 10 mEq Capsule, Sustained Release Take 20 mEq by mouth daily. Active nystatin (MYCOSTATIN) Powder Apply topically 2 times daily. Active oxyCODONE 5 mg Capsule Take 5 mg by mouth every 6 hours as needed. Active Active Problems Problem Noted Date Diagnosed Date Closed nondisplaced fracture of third cervical vertebra with routine healing 05/05/2017 Status post total hip replac ement, right due to posterior dislocation and acetabular fracture. DOS: 04/13/2017. Dr. De Santiago 05/02/2017 Right acetabular fracture 04/13/2017 Lymphedema of both lower extremities 06/17/2016 Morbid obesity 06/17/2016 History of breast cancer in male 06/17/2016 Degenerative joint disease of knee 06/17/2016 Atrial fibrillation 1st degree AV block Hyperlipidemia Hypertension Chronic gastritis Immunizations Name Administration Dates Next Due Influenza Vaccine, Whole 08/10/2005 Td Adult (not absorbed) 08/10/2005 Family History Medical History Relation Comments Cancer Neg Hx Deep Vein Thrombosis Neg Hx Social History Tobacco Use Types Packs/Day Years Used Date Smoking Tobacco: Former Cigarettes Q uit: 1960 Smokeless Tobacco: Former Alcohol Use Standard Drinks/Week Comments Yes 0 (1 standard drink = 0.6 oz pur e alcohol) occ. Sex and Gender Information Value Date Recorded Sex Assigned at Not on file Gender Identity Not on file Sexual Orientation Not on file Last Filed Vital Signs Vital Sign Reading Time Taken Comments Blood Pressure 134/51 06/06/2017 9:17 AM EDT Pulse 81 06/06/2017 9:17 AM EDT Temperature 36.6 ??C (97.9 ??F) 04/24/2017 12:25 PM E DT Respiratory Rate 18 04/24/2017 12:25 PM EDT Oxygen Saturation 94% 04/24/2017 12:25 PM EDT Inhaled Oxygen Concentration - - Weight 122.5 kg (270 lb) 06/06/2017 9:17 AM EDT Height 181.6 cm (5' 11.5) 06/06/2017 9:17 AM ED T Body Mass Index 37.13 06/06/2017 9:17 AM EDT Plan of Treatment Health Maintenance Due Date Last Done Comments Pneumoccocal Vaccine: 50+ (1 of 1 - PCV) 1986 Zoster vaccine (1 of 2) 1986 Advance Directive 1991 Tetanus/Diphtheria/Pertussis Vaccines (1 - Tdap) 08/1108/10/2005 RSV Vaccine (1 - 1-dose 75+ series) 2011 Covid-19 Vaccine (1 - 2023- season) 2024 Influenza (Flu) vaccine (1 o f 1 - Influenza standard series) 05/26/2024 08/10/2005 Medical Devices Implanted Type Area Home School Teacher Device Identifier Shelf Expiration Date Model / Serial / Lot Cup,Hip,Acetb, Grptn,Mlthl,56 mm ([id number]) (Autoreq) - [id number] Implanted:Qty: 1 on 04/17/2017 by Corey De Santiago MD at [facility] IMPLANTS Right: Hip DO NOT USE [employer] Intern - 3527 11/22/2026 6 / / [id number] Head,Atc,Mtl,+ 1.5mm,36mm ([id number]) (Autoreq) - [id number] Implanted:Qty: 1 on 04/17/2017 by Corey De Santiago MD at [facility] IMPLANTS Right: Hip DO NOT USE [employer] Intern - 3527 01/22/2022 0 / / [id number] Plate,Recon.8h ,3.5x94mm ([id number]) - [id number] Implanted:Qty: 1 on 04/17/2017 by Corey De Santiago MD at [facility] IMPLANTS Right: Hip DO NOT USE SYNTHES - [id number] 245.18 / / Screw,Cnula,P- T,3.5x28mm ([id number]) - [id number] Implanted:Qty: 1 on 04/17/2017 by Corey De Santiago MD at [facility] IMPLANTS Right: Hip DO NOT USE SYNTHES - [id number] 205.028 / / Screw,Cnula,P- T,3.5x48mm (8123372) - [id number] Implanted:Qty: 1 on 04/17/2017 by Corey De Santiago MD at [facility] IMPLANTS Right: Hip DO NOT USE SYNTHES - [id number] 205.048 / / Screw,Crtx,Sta p,3.5x38mm (8532543) - [id number] Implanted:Qty: 1 on 04/17/2017 by Corey De Santiago MD at [facility] IMPLANTS Right: Hip DO NOT USE SYNTHES - [id number] 204.838 / / Screw,Crtx,Sta p,3.5x45mm ([id number]) - [id number] Implanted:Qty: 1 on 04/17/2017 by Corey De Santiago MD at [facility] IMPLANTS Right: Hip DO NOT USE SYNTHES - [id number] 204.845 / / Screw,Crtx,Sta p,3.5x50mm (6499166) - [id number] Implanted:Qty: 1 on 04/17/2017 by Corey De Santiago MD at [facility] IMPLANTS Right: Hip DO NOT USE SYNTHES - [id number] 204.850 / / Screw,Crtx,Sta p,3.5x55mm (3507122) - [id number] Implanted:Qty: 1 on 04/17/2017 by Corey De Santiago MD at [facility] IMPLANTS Right: Hip DO NOT USE SYNTHES - [id number] 204.855 / / Screw,Cacls,Pn ncl,6.5x30mm ([id number]) (Autoreq) - [id number] Implanted:Qty: 1 on 04/17/2017 by Corey De Santiago MD at [facility] IMPLANTS Right: Hip DO NOT USE [employer] Intern - 3527 02/22/20271216 0 / / [id number] Screw,Cacls,Pn ncl,6.5x30mm ([id number]) (Autoreq) - [id number] Implanted:Qty: 1 on 04/17/2017 by Corey De Santiago MD at [facility] IMPLANTS Right: Hip DO NOT USE [employer] Intern - 3527 12/23/20261216 0 / / [id number] Screw,Cacls,Pn ncl,6.5x20mm (2770954) (Autoreq) - [id number] Implanted:Qty: 1 on 04/17/2017 by Corey De Santiago MD at [facility] IMPLANTS Right: Hip DO NOT USE [employer] Intern - 3527 02/22/20271216 0 / / [id number] Screw,Cacls,Pn ncl,6.5x25mm ([id number]) (Autoreq) - [id number] Implanted:Qty: 1 on 04/17/2017 by Corey De Santiago MD at [facility] IMPLANTS Right: Hip DO NOT USE [employer] Intern - 3527 11/22/20261216 0 / / [id number] Inser,Altrx,Nt ,+4,18p31nb ([id number]) (Autoreq) - [id number] Implanted:Qty: 1 on 04/17/2017 by Corey De Santiago MD at [facility] IMPLANTS Right: Hip DO NOT USE [employer] Intern - 3527 12/23/2021 6 / / [id number] Screw,Cacls,Pn ncl,6.5x20mm (6053116) (Autoreq) - [id number] Implanted:Qty: 1 on 04/17/2017 by Corey De Santiago MD at [facility] IMPLANTS Right: Hip DO NOT USE [employer] Intern - 3527 02/22/2027 0 / / [id number] Inser,Altrx,10 d,+4,27g98rp (4850669) (Autoreq) - [id number] Implanted:Qty: 1 on 04/17/2017 by Corey De Santiago MD at [facility] IMPLANTS Right: Hip DO NOT USE [employer] Intern - 3527 12/23/2020 6 / / [id number] Stem,Sumt,Tpr, Hi,Ofst,Sz6 (8330050) (Autoreq) - [id number] Implanted:Qty: 1 on 04/17/2017 by Corey De Santiago MD at [facility] IMPLANTS Right: Hip DO NOT USE [employer] Intern - 3527 01/22/2027 1570-09-05 0 / / [id number] Explanted Type Area Home School Teacher Device Identifier Shelf Expiration Date Model / Serial / Lot Screw,Crtx,Sta p,3.5x34mm ([id number]) - [id number] Explanted:Qty: 1 on 04/17/2017 at [facility] IMPLANTS Right: Hip DO NOT USE SYNTHES - [id number] 204.834 / / Advance Directives * Full Code (Latest Code Status on File) Date Activated Date Inactivated Comments 04/13/2017 7:12 PM 04/24/2017 6:25 PM Question Answer Comments Does patient have capacity to make decision: Yes Care Teams Bottom Stainer Relationship Specialty Start Date End Date Xander Kearns DO [address] [place] [address] PCP - General 08/17/10
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
--- OUTSIDE RECORDS SUMMARY | 2024-10-09 15:16 | XMS_ITS | Encounter Summary ---
Author Organization [facility] [address] Care Team Providers Care Ceramic Artist Name Role Phone Som Xander WINTER Primary Care Provider [phone] Reason for Visit * Reason Comments Follow-up Neck Pain Encounter Details Date Type Department Care Team (Late st Contact Info) Description 06/02/2017 11:20 AM EDT Office [place] [phone] Joseph Holcomb MD Closed nondisplaced fracture of third cervical vertebra [...] as of this encounter Progress Notes * Joseph Holcomb MD - 06/02/2017 11:20 AM EDT Mr. Stone is seen today in followup to his injury sustained on or about 04/13/17 with a nondisplaced vertical fracture of the C3 vertebral body, neurologically intact, without instability on films. He is seen today in followup to those injuries. He on a stretcher. Collar is in place. He voices no neurological symptoms and no pain in his neck. His collar is removed. It is a completely pain-free cervical spine to palpation and to range of motion. Lateral and AP x-ray of the cervical spine are reviewed today demonstrating no instability and resolving fracture lines at the L3 vertebral body. This gentleman is over 6 weeks out from his injury. He is doing well clinically and radiographically. He is completely pain-free. His injuries are minimally displaced. I removed his collar. I have completed the paperwork for the detention, and no further followup indicated. documented in this encounter Plan of Treatment Not on file documented as of this encounter Visit Diagnoses Diagnosis Closed nondisplaced fracture of third cervical vertebra with routine healing, unspecified fracture morphology, subsequent encounter documented in this encounter Care Teams Ceramic Artist Relationship Specialty Start Date End Date Xander Kearns DO [address] [place] [address] PCP - General 08/17/10 documented as of this encounter
--- OUTSIDE RECORDS SUMMARY | 2024-10-09 15:16 | XMS_ITS | Encounter Summary ---
[place] [address] Care Team Providers Care E Commerce Analyst Name Role Phone Xander Kearns Primary Care Provider [phone] Reason for Visit * Reason Onset Date Comments Questions 04/26/2017 r/t HOB elevatio n Encounter Details Date Type Department Care Team (Late st Contact Info) Description 04/26/2017 Telephone [place] [phone] Blanche Sheikh RN Questions (r/t HOB elevation) Social History Tobacco Use Types Packs/Day Years [...] encounter Miscellaneous Notes * Telephone Encounter - Blanche Sheikh RN - 04/26/2017 5:27 PM EDT Call placed to Rehab staff to advise them that Mr Stone has no restrictions re HOB elevation as it pertains to his spine. Apologized for any confusion, explaining that the 60 degree restriction documented on the discharge summary was carried forward from prior to his thoracic and lumbar spine being cleared. Giulia was appreciative of the update and will share with pt and staff. documented in this encounter Plan of Treatment Not on file documented as of this encounter Visit Diagnoses Not on filedocumented in this encounter Care Teams E Commerce Analyst Relationship Specialty Start Date End Date Xander Kearns DO [address] [place] [address] PCP - General 08/17/10 documented as of this encounter
--- OUTSIDE RECORDS SUMMARY | 2024-10-09 15:16 | XMS_ITS | Encounter Summary ---
Author Organization [place] [address] Care Team Providers Care Estate Conservator Name Role Phone SomXander gonsales Primary Care Provider [phone] Encounter Details Date Type Department Care Team (Late st Contact Info) Description 04/28/2017 Telephone [place] [phone] Jennie Omalley RN Social History Tobacco Use Types Packs/Day Years [...] encounter Miscellaneous Notes * Telephone Encounter - Jennie Omalley RN - 04/28/2017 11:11 AM EDT [facility]. She is going to fax over paperwork for Dr. De Santiago to sign. * Telephone Encounter - Jennie Omalley RN - 04/28/2017 9:40 AM EDT Giulia from [facility] called looking for clarification on w/b status. D/c notes sate touch down and the info they received from the athletic trainers states full w/b. documented in this encounter Plan of Treatment Not on file documented as of this encounter Visit Diagnoses Not on filedocumented in this encounter Care Teams Estate Conservator Relationship Specialty Start Date End Date Xander Kearns DO [address] [place] [address] PCP - General 08/17/10 documented as of this encounter
--- OUTSIDE RECORDS SUMMARY | 2024-10-09 15:16 | XMS_ITS | Encounter Summary ---
Author Organization [facility] Address [facility] [place] [address] Care Team Providers Care Vice President Global Advertising Sales Name Role Phone SomXander gonsales Primary Care Provider Encounter Details Date Type Department Care Team (Latest Contact Info) Description 05/05/2017 2:30 PM EDT - 05/05/2017 2:34 PM EDT Hospital Encounter XRay at [address] [place] [address] Lissa Manzanares, [facility] [place] [address] Closed displaced fracture of anterior wall of right acetabulum with routine healing, subsequent encounter Discharge Disposition: Home Social History [...] Comments XR PELVIS MIN 3 VIEWS Routine 05/05/2017 3:01 PM EDT Closed displaced fracture of anterior wall of right acetabulum with routine healing, subsequent encounter documented in this encounter Results [...] encounter documented in this encounter Care Teams Vice President Global Advertising Sales Relationship Specialty Start Date End Date Xander Kearns DO [address] [place] [address] PCP - General 08/17/10 documented as of this encounter
--- OUTSIDE RECORDS SUMMARY | 2024-10-09 15:17 | XMS_ITS | Encounter Summary ---
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 differential will be performed. Immature Gran Absolute 0.04 0.00 - 0.04 x10(3)/mc L [facility] Blood specimen (specimen) 04/18/2017 4:15 AM EDT 04/18/2017 4:25 AM EDT Narrative Resulting Agency Comment Spec In Lab Radha Mathew MD HEMATOLOGY ORDERABLE S [facility] [place] [address] * (ABNORMAL) Hemogram (04/18/2017 4:15 AM EDT) White Blood Cell 9.4 4.0 - 9.5 x10(3)/mc L [facility] Red Blood Cell 3.21(L) 4.58 - 5.54 x10(6)/mc L [facility] Hemoglobin 9.9(L) 13.7 - 16.5 gm/dL [facility] Comment: This result has been called to YARELI MATSON by CALEB ROBERTS on 04 18 2017 at 0450, and has been read back. Hematocrit 29.6(L) 40.5 - 48.5 % [facility] Mean Cell Volume 92.2 82.9 - 93.1 fL [facility] Mean Cell Hemoglobin 30.8 27.5 - 32.1 pg [facility] Mean Cell Hemoglobin Concentration 33.4 32.0 - 35.7 gm/dL [facility] Platelet 279 145 - 357 x10(3)/mc L [facility] RDW Standard Deviation 44.9 36.0 - 45.0 [facility] RDW coefficient of variation 13.3 11.4 - 13.8 % [facility] Mean Platelet Volume 10.8 7.6 - 12.9 fL [facility] NRBC% auto 0.0 % [facility] NRBC Absolute 0.000 0.000 - 0.000 x10(3)/mc L [facility] Blood specimen (specimen) 04/18/2017 4:15 AM EDT 04/18/2017 4:25 AM EDT Narrative Resulting Agency Comment Spec In Lab Radha Mathew MD HEMATOLOGY ORDERABLE S [facility] [place] [address] * (ABNORMAL) Basic Metabolic Panel (non-fasting) (04/18/2017 4:15 AM EDT) Glucose 150 65 - 199 mg/dL [facility] Comment:Diabetes: >=200 mg/d L plus symptoms Blood Urea Nitrogen 32(H) 10 - 20 mg/dL [facility] Creatinine 1.50 0.80 - 1.50 mg/dL [facility] Comment: Please note that the pediatric reference intervals supplied above were not validated at [facility]. Results from pediatric patients should be interpreted in conjunction to the patient's age, height and muscle mass. Sodium 142 135 - 145 mmol/L [facility] Potassium 3.8 3.5 - 5.0 mmol/L [facility] Comment: Please note: ??Patients with WBC >100,000 may have falsely elevated Potassium levels. ??For accurate Potassium quantification in these patients send serum separator tube (gold top) for subsequent determinations. ??Contact the Clinical Chemistry Laboratory if there are any questions. Chloride 96(L) 98 - 107 mmol/L [facility] Carbon Dioxide 34(H) 22 - 31 mmol/L [facility] Anion Gap 12 5 - 15 mmol/L [facility] Calcium 8.5 8.5 - 10.5 mg/dL [facility] Est Glomerular Filtration Rate 45(L) >=60 [facility] Comment: This estimated GFR (eGFR) value was calculated using the MDRD equation which has been validated on patients between the ages of 18 and 70. The MDRD should not be used to assess kidney function in patients < 18 years of age or in patients with extremes of body mass, or in patients with acute kidney failure. This value should be multiplied by 1.2 for patients. For further information please copy and paste the following links into your internet browser. [email or web address] Blood specimen (specimen) 04/18/2017 4:15 AM EDT 04/18/2017 4:25 AM EDT Narrative Resulting Agency Comment Spec In Lab Radha Mathew MD CHEMISTRY ORDERABLES [facility] [place] [address] * XR Pelvis Judet or In Out 3 views (04/17/2017 4:23 PM EDT) Anatomical Region Laterality Modality Pelvis N/A Digital Radiogra phy Impressions 04/17/2017 4:32 PM EDT Plate and screw fixation of comminuted acetabular fracture. 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 Narrative 04/17/2017 4:32 PM EDT EXAMINATION: XR PELVIS JUDET OR IN OUT 3 VIEWS CLINICAL HISTORY: ap pelvis, please include entire TRISTA stem, and judet views, sp TRISTA and acetabulum ORIF in PACU TECHNIQUE: AP pelvis and Judet views COMPARISON: CT pelvis 04/14/2017 FINDINGS: The comminuted RIGHT acetabular fracture has been fixed with plate and screws. There is a new RIGHT total hip arthroplasty. Both the acetabular and femoral components are in expected position. No new periprosthetic fracture or other complication is seen. Procedure Note Joseph Gauthier MD - 04/17/2017 EXAMINATION: XR PELVIS JUDET OR IN OUT 3 VIEWS CLINICAL HISTORY: ap pelvis, please include entire TRISTA stem, and judetviews, sp TRISTA and acetabulum ORIF in PACU TECHNIQUE: AP pelvis and Judet views COMPARISON: CT pelvis 04/14/2017 FINDINGS: The comminuted RIGHT acetabular fracture has been fixed with plate andscrews. There is a new RIGHT total hip arthroplasty. Both the acetabular andfemoral components are in expected position. No new periprosthetic fracture orother complication is seen. IMPRESSION Plate and screw fixation of comminuted acetabular fracture. 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 Radha Mathew MD IMG DX ORDERABLES * XR Fluoro No Rad <1Hr - OR Use (04/17/2017 1:57 PM EDT) Narrative RAD - 04/17/2017 1:58 PM EDT This order does not need a radiologist interpretation. ?? Radha PENALOZAG FLUORO ORDERABLE S [place], [place] * (ABNORMAL) BLOOD GAS 2 ARTERIAL (04/17/2017 11:39 AM EDT) pH, Arterial 7.46(H) 7.35 - 7.45 [facility] PCO2, Arterial 48(H) 35 - 45 mmHg [facility] PO2, Arterial 158(H) 85 - 104 mmHg [facility] Bicarbonate, Arterial 33.2(H) 20.0 - 26.0 mmol/L [facility] Base Excess, Arterial 9.4(H) -3.0 - 3.0 mmol/L [facility] Hgb Blood Gas 11.2(L) 13.7 - 16.5 gm/dL [facility] Oxyhemoglobin, Arterial 97.7(H) 94.0 - 97.0 % [facility] Carboxyhemoglob in, Arterial 1.0 % [facility] Comment: Nonsmokers: 0.5-1.5% COHB Smokers: Variable, but usually less than 10% Toxic: 20-30% COHB Lethal: Greater than 60% COHB Methemoglobin, Arterial 0.3 <=1.5 % [facility] Na Whole Blood 135 135 - 145 mmol/L [facility] K Whole Blood 3.3(L) 3.5 - 5.0 mmol/L [facility] Comment: Please note: Patients with WBC >100,000 may have falsely elevated Potassium levels. Contact the Clinical Chemistry Laboratory if there are any questions. ICa Whole Blood 1.08(L) 1.15 - 1.33 mmol/L [facility] Comment: Note: ??Total bilirubin higher than 20 mg/dL may lead to falsely low ionized calcium. CL Whole Blood 97(L) 98 - 107 mmol/L [facility] Gluc Whole Bld 145 65 - 199 mg/dL [facility] Comment:Diabetes: >=200 mg/d L plus symptoms. Lactate WB 1.5 0.5 - 2.2 mmol/L [facility] Blood specimen (specimen) 04/17/2017 11:39 AM EDT 04/17/2017 11:39 AM EDT Radha Mathew MD POINT OF CARE TEST O SOPHIE [facility] [place] [address] * (ABNORMAL) BLOOD GAS 2 ARTERIAL (04/17/2017 9:59 AM EDT) pH, Arterial 7.47(H) 7.35 - 7.45 [facility] PCO2, Arterial 44 35 - 45 mmHg [facility] PO2, Arterial 112(H) 85 - 104 mmHg [facility] Bicarbonate, Arterial 31.5(H) 20.0 - 26.0 mmol/L [facility] Base Excess, Arterial 7.9(H) -3.0 - 3.0 mmol/L [facility] Hgb Blood Gas 11.4(L) 13.7 - 16.5 gm/dL [facility] Oxyhemoglobin, Arterial 96.4 94.0 - 97.0 % [facility] Carboxyhemoglob in, Arterial 1.8 % [facility] Comment: Nonsmokers: 0.5-1.5% COHB Smokers: Variable, but usually less than 10% Toxic: 20-30% COHB Lethal: Greater than 60% COHB Methemoglobin, Arterial 0.3 <=1.5 % [facility] Na Whole Blood 135 135 - 145 mmol/L [facility] K Whole Blood 3.2(L) 3.5 - 5.0 mmol/L [facility] Comment: Please note: Patients with WBC >100,000 may have falsely elevated Potassium levels. Contact the Clinical Chemistry Laboratory if there are any questions. ICa Whole Blood 1.11(L) 1.15 - 1.33 mmol/L [facility] Comment: Note: ??Total bilirubin higher than 20 mg/dL may lead to falsely low ionized calcium. CL Whole Blood 96(L) 98 - 107 mmol/L [facility] Gluc Whole Bld 137 65 - 199 mg/dL [facility] Comment:Diabetes: >=200 mg/d L plus symptoms. Lactate WB 1.5 0.5 - 2.2 mmol/L [facility] Blood specimen (specimen) 04/17/2017 9:59 AM EDT 04/17/2017 9:59 AM EDT Radha Mathew MD POINT OF CARE TEST O SOPHIE Performing Organization Address City/State/[facility] Co de Phone Number [facility] [place] [address] * (ABNORMAL) BLOOD GAS 2 ARTERIAL (04/17/2017 8:46 AM EDT) pH, Arterial 7.45 7.35 - 7.45 [facility] PCO2, Arterial 49(H) 35 - 45 mmHg [facility] PO2, Arterial 138(H) 85 - 104 mmHg [facility] Bicarbonate, Arterial 33.0(H) 20.0 - 26.0 mmol/L [facility] Base Excess, Arterial 9.0(H) -3.0 - 3.0 mmol/L [facility] Hgb Blood Gas 11.9(L) 13.7 - 16.5 gm/dL [facility] Oxyhemoglobin, Arterial 97.4(H) 94.0 - 97.0 % [facility] Carboxyhemoglob in, Arterial 1.4 % [facility] Comment: Nonsmokers: 0.5-1.5% COHB Smokers: Variable, but usually less than 10% Toxic: 20-30% COHB Lethal: Greater than 60% COHB Methemoglobin, Arterial 0.0 <=1.5 % [facility] Na Whole Blood 136 135 - 145 mmol/L [facility] K Whole Blood 3.2(L) 3.5 - 5.0 mmol/L [facility] Comment: Please note: Patients with WBC >100,000 may have falsely elevated Potassium levels. Contact the Clinical Chemistry Laboratory if there are any questions. ICa Whole Blood 1.12(L) 1.15 - 1.33 mmol/L [facility] Comment: Note: ??Total bilirubin higher than 20 mg/dL may lead to falsely low ionized calcium. CL Whole Blood 95(L) 98 - 107 mmol/L [facility] Gluc Whole Bld 124 65 - 199 mg/dL [facility] Comment:Diabetes: >=200 mg/d L plus symptoms. Lactate WB 1.4 0.5 - 2.2 mmol/L [facility] Blood specimen (specimen) 04/17/2017 8:46 AM EDT 04/17/2017 8:46 AM EDT Radha Mathew MD POINT OF CARE TEST O RDERABLES Performing Organization Address [facility]/ZIP Co de Phone Number [facility] [place] [address] * ABORH Recheck Status (04/17/2017 6:42 AM EDT) ABORH Type Recheck Completed [facility] Blood specimen (specimen) 04/17/2017 6:42 AM EDT 04/17/2017 6:50 AM EDT Narrative Resulting Agency Comment Spec In Lab Radha Mathew MD BLOOD BANK LAB ORDER EDWIN Performing Organization Address [facility]/ZIP Co de Phone Number [facility] [place] [address] * Antibody screen (04/17/2017 6:42 AM EDT) Ab Screen Interp Negative [facility] Expires at [id number] on: 04/20/2017 [facility] Blood specimen (specimen) 04/17/2017 6:42 AM EDT 04/17/2017 6:50 AM EDT Narrative Resulting Agency Comment Spec In Lab Radha Mathew MD BLOOD BANK LAB ORDER EDWIN Performing Organization Address City/[facility]/ZIP Co de Phone Number [facility] [place] [address] * ABO/Rh Typing (04/17/2017 6:42 AM EDT) [facility] ABORH Type O Pos [facility] Blood specimen (specimen) 04/17/2017 6:42 AM EDT 04/17/2017 6:50 AM EDT Narrative Resulting Agency Comment Spec In Lab Radha Mathew MD BLOOD BANK LAB ORDER EDWIN Performing Organization Address City/[facility] Co de Phone Number [facility] [place] [address] * (ABNORMAL) Differential, Automated (04/17/2017 4:42 AM EDT) [facility] Neutrophil % 75.0 % [facility] Neutrophil Absolute 6.48(H) 1.70 - 6.10 x10(3)/mc L [facility] [facility] Lymph % 7.5 % [facility] Lymphocytes Abs 0.6(L) 0.9 - 3.2 x10(3)/mc L [facility] Monocyte % 13.0 % [facility] Monocyte Abs 1.1(H) 0.3 - 0.9 x10(3)/mc L [facility] Eos % 3.5 % [facility] Eosinophils Abs 0.3 0.0 - 0.4 x10(3)/mc L [facility] Basophil % 0.5 % [facility] Baso Absolute 0.0 0.0 - 0.1 x10(3)/mc L [facility] Immature Gran % 0.50 % [facility] Comment: Immature granulocytes(IG's)percentage and absolute count will include metamyelocytes, myelocytes, and promyelocytes. Blood smears from CBCs yielding IG's will be scanned manually for concordance. If this scan disagrees with the automated IG or if promyelocytes are noted, a manual differential will be performed. Immature Gran Absolute 0.04 0.00 - 0.04 x10(3)/mc L [facility] Blood specimen (specimen) 04/17/2017 4:42 AM EDT 04/17/2017 4:59 AM EDT Narrative Resulting Agency Comment Spec In Lab Andrey Kimble MD HEMATOLOGY ORDERABLE S [facility] [place] [address] * (ABNORMAL) Hemogram (04/17/2017 4:42 AM EDT) White Blood Cell 8.6 4.0 - 9.5 x10(3)/ L [facility] Red Blood Cell 3.81(L) 4.58 - 5.54 x10(6)/mc L [facility] Hemoglobin 11.9(L) 13.7 - 16.5 gm/dL [facility] Hematocrit 35.0(L) 40.5 - 48.5 % [facility] Mean Cell Volume 91.9 82.9 - 93.1 fL [facility] Mean Cell Hemoglobin 31.2 27.5 - 32.1 pg [facility] Mean Cell Hemoglobin Concentration 34.0 32.0 - 35.7 gm/dL [facility] Platelet 236 145 - 357 x10(3)/ L [facility] RDW Standard Deviation 45.3(H) 36.0 - 45.0 fL [facility] RDW coefficient of variation 13.4 11.4 - 13.8 % [facility] Mean Platelet Volume 10.6 7.6 - 12.9 fL [facility] NRBC% auto 0.0 % [facility] NRBC Absolute 0.000 0.000 - 0.000 x10(3)/mc L [facility] Blood specimen (specimen) 04/17/2017 4:42 AM EDT 04/17/2017 4:59 AM EDT Narrative Resulting Agency Comment Spec In Lab Andrey Kimble MD HEMATOLOGY ORDERABLE S [facility] [place] [address] * (ABNORMAL) Basic Metabolic Panel (non-fasting) (04/17/2017 4:42 AM EDT) Glucose 115 65 - 199 mg/dL [facility] Comment:Diabetes: >=200 mg/d L plus symptoms Blood Urea Nitrogen 23(H) 10 - 20 mg/dL [facility] Creatinine 1.29 0.80 - 1.50 mg/dL [facility] Comment: Please note that the pediatric reference intervals supplied above were not validated at [facility]. Results from pediatric patients should be interpreted in conjunction to the patient's age, height and muscle mass. Sodium 140 135 - 145 mmol/L [facility] Potassium 3.3(L) 3.5 - 5.0 mmol/L [facility] Comment: Please note: ??Patients with WBC >100,000 may have falsely elevated Potassium levels. ??For accurate Potassium quantification in these patients send serum separator tube (gold top) for subsequent determinations. ??Contact the Clinical Chemistry Laboratory if there are any questions. Chloride 94(L) 98 - 107 mmol/L [facility] Carbon Dioxide 36(H) 22 - 31 mmol/L [facility] Anion Gap 10 5 - 15 mmol/L [facility] Calcium 9.0 8.5 - 10.5 mg/dL [facility] Est Glomerular Filtration Rate 54(L) >=60 [facility] Comment: This estimated GFR (eGFR) value was calculated using the MDRD equation which has been validated on patients between the ages of 18 and 70. The MDRD should not be used to assess kidney function in patients < 18 years of age or in patients with extremes of body mass, or in patients with acute kidney failure. This value should be multiplied by 1.2 for patients. For further information please copy and paste the following links into your internet browser. [email or web address] Blood specimen (specimen) 04/17/2017 4:42 AM EDT 04/17/2017 4:59 AM EDT Narrative Resulting Agency Comment Spec In Lab Radha Mathew MD CHEMISTRY ORDERABLES [facility] [place] [address] * (ABNORMAL) Basic Metabolic Panel (non-fasting) (04/16/2017 7:48 PM EDT) Glucose 121 65 - 199 mg/dL [facility] Comment:Diabetes: >=200 mg/d L plus symptoms Blood Urea Nitrogen 20 10 - 20 mg/dL [facility] Creatinine 1.29 0.80 - 1.50 mg/dL [facility] Comment: Please note that the pediatric reference intervals supplied above were not validated at [facility]. Results from pediatric patients should be interpreted in conjunction to the patient's age, height and muscle mass. Sodium 141 135 - 145 mmol/L [facility] Potassium 3.8 3.5 - 5.0 mmol/L [facility] Comment: Please note: ??Patients with WBC >100,000 may have falsely elevated Potassium levels. ??For accurate Potassium quantification in these patients send serum separator tube (gold top) for subsequent determinations. ??Contact the Clinical Chemistry Laboratory if there are any questions. Chloride 94(L) 98 - 107 mmol/L [facility] Carbon Dioxide 37(H) 22 - 31 mmol/L [facility] Anion Gap 10 5 - 15 mmol/L [facility] Calcium 9.2 8.5 - 10.5 mg/dL [facility] Est Glomerular Filtration Rate 54(L) >=60 [facility] Comment: This estimated GFR (eGFR) value was calculated using the MDRD equation which has been validated on patients between the ages of 18 and 70. The MDRD should not be used to assess kidney function in patients < 18 years of age or in patients with extremes of body mass, or in patients with acute kidney failure. This value should be multiplied by 1.2 for patients. For further information please copy and paste the following links into your internet browser. [email or web address] Blood specimen (specimen) 04/16/2017 7:48 PM EDT 04/16/2017 7:53 PM EDT Narrative Resulting Agency Comment Spec In Lab Radha Mathew MD CHEMISTRY ORDERABLES [facility] [place] [id number] * XR Hip AP & Lat Left (04/16/2017 10:22 AM EDT) Anatomical Region Laterality Modality Hip Left Digital Radiogra phy Impressions 04/16/2017 11:03 AM EDT As above. Narrative 04/16/2017 11:03 AM EDT EXAMINATION: XR HIP AP AND LAT LEFT CLINICAL HISTORY: with mag marker for operative planning; AP only TECHNIQUE: Single frontal view of the left hip. COMPARISON: Pelvis of 04/14/2017. CT pelvis of 04/13/2017. FINDINGS: Limited left-sided hip and pelvis stable from comparison. Procedure Note Augusto Canela MD - 04/16/2017 EXAMINATION: XR HIP AP AND LAT LEFT CLINICAL HISTORY: with mag marker for operative planning; AP only TECHNIQUE: Single frontal view of the left hip. COMPARISON: Pelvis of 04/14/2017. CT pelvis of 04/13/2017. FINDINGS: Limited left-sided hip and pelvis stable from comparison. IMPRESSION As above. Radha Mathew MD [facility] [place] * XR Abdomen 1 view (Generic) (04/16/2017 7:54 AM EDT) Anatomical Region Laterality Modality Abdomen N/A Digital Radiogra phy Impressions 04/16/2017 8:12 AM EDT Prominent loops of large and small bowel, nonspecific bowel gas pattern, supine views only. If persistent concern for obstruction, consider dedicated acute abdominal series with upright views. Narrative 04/16/2017 8:12 AM EDT EXAMINATION: XR ABDOMEN 1 VIEW (GENERIC) CLINICAL HISTORY: eval obstruction TECHNIQUE: 2 frontal views, supine, of the abdomen. COMPARISON: CT pelvis of 04/13/2017. FINDINGS: Multiple prominent loops of bowel, small and large bowel are appreciated. No definite abnormal loops. Limited to supine only views. Degenerative changes of the bony skeleton. Procedure Note Augusto Canela MD - 04/16/2017 EXAMINATION: XR ABDOMEN 1 VIEW (GENERIC) CLINICAL HISTORY: eval obstruction TECHNIQUE: 2 frontal views, supine, of the abdomen. COMPARISON: CT pelvis of 04/13/2017. FINDINGS: Multiple prominent loops of bowel, small and large bowel are appreciated.No definite abnormal loops. Limited to supine only views. Degenerativechanges of the bony skeleton. IMPRESSION Prominent loops of large and small bowel, nonspecific bowel gas pattern,supine views only. If persistent concern for obstruction, consider dedicatedacute abdominal series with upright views. Radha Mathew MD [facility] [place] * Magnesium (04/16/2017 4:12 AM EDT) Magnesium 0.96 0.69 - 1.07 mmol/L [facility] Blood specimen (specimen) Venous Draw / Unknown 04/16/2017 4:12 AM EDT 04/16/2017 4:26 AM EDT Narrative Resulting Agency Comment Spec In Lab Radha Mathew MD CHEMISTRY ORDERABLES [facility] [place] [address] * (ABNORMAL) Differential, Automated (04/16/2017 4:12 AM EDT) Neutrophil % 81.3 % [facility] Neutrophil Absolute 8.77(H) 1.70 - 6.10 x10(3)/mc L [facility] Lymph % 6.0 % [facility] Lymphocytes Abs 0.6(L) 0.9 - 3.2 x10(3)/ L [facility] Monocyte % 10.6 % [facility] Monocyte Abs 1.1(H) 0.3 - 0.9 x10(3)/ L [facility] Eos % 1.2 % [facility] Eosinophils Abs 0.1 0.0 - 0.4 x10(3)/[facility] Basophil % 0.4 % [facility] Baso Absolute 0.0 0.0 - 0.1 x10(3)/ L [facility] Immature Gran % 0.50 % [facility] Comment: Immature granulocytes(IG's)percentage and absolute count will include metamyelocytes, myelocytes, and promyelocytes. Blood smears from CBCs yielding IG's will be scanned manually for concordance. If this scan disagrees with the automated IG or if promyelocytes are noted, a manual differential will be performed. Immature Gran Absolute 0.05(H) 0.00 - 0.04 x10(3)/mc L [facility] Blood specimen (specimen) 04/16/2017 4:12 AM EDT 04/16/2017 4:24 AM EDT Narrative Resulting Agency Comment Spec In Lab Andrey Kimble MD HEMATOLOGY ORDERABLE S [facility] [place] [address] * (ABNORMAL) Hemogram (04/16/2017 4:12 AM EDT) White Blood Cell 10.8(H) 4.0 - 9.5 x10(3)/mc L [facility] Red Blood Cell 3.90(L) 4.58 - 5.54 x10(6)/mc L [facility] Hemoglobin 12.2(L) 13.7 - 16.5 gm/dL [facility] Hematocrit 35.6(L) 40.5 - 48.5 % [facility] Mean Cell Volume 91.3 82.9 - 93.1 fL [facility] Mean Cell Hemoglobin 31.3 27.5 - 32.1 pg [facility] Mean Cell Hemoglobin Concentration 34.3 32.0 - 35.7 gm/dL [facility] Platelet 220 145 - 357 x10(3)/[facility] RDW Standard Deviation 44.0 36.0 - 45.0 [facility] RDW coefficient of variation 13.2 11.4 - 13.8 % [facility] Mean Platelet Volume 10.7 7.6 - 12.9 fL [facility] NRBC% auto 0.0 % [facility] NRBC Absolute 0.000 0.000 - 0.000 x10(3)/[facility] Blood specimen (specimen) 04/16/2017 4:12 AM EDT 04/16/2017 4:24 AM EDT Narrative Resulting Agency Comment Spec In Lab Andrey Kimble MD HEMATOLOGY ORDERABLE S [facility] [place] [address] * (ABNORMAL) Basic Metabolic Panel (non-fasting) (04/16/2017 4:12 AM EDT) Pathologist [facility] Glucose 122 65 - 199 mg/dL [facility] Comment:Diabetes: >=200 mg/d L plus symptoms Blood Urea Nitrogen 20 10 - 20 mg/dL [facility] Creatinine 1.18 0.80 - 1.50 mg/dL [facility] Comment: Please note that the pediatric reference intervals supplied above were not validated at [facility]. Results from pediatric patients should be interpreted in conjunction to the patient's age, height and muscle mass. Sodium 141 135 - 145 mmol/L [facility] Potassium 3.2(L) 3.5 - 5.0 mmol/L [facility] Comment: rechecked RG Please note: ??Patients with WBC >100,000 may have falsely elevated Potassium levels. ??For accurate Potassium quantification in these patients send serum separator tube (gold top) for subsequent determinations. ??Contact the Clinical Chemistry Laboratory if there are any questions. Chloride 95(L) 98 - 107 mmol/L [facility] Carbon Dioxide 35(H) 22 - 31 mmol/L [facility] Anion Gap 11 5 - 15 mmol/L [facility] Calcium 8.8 8.5 - 10.5 mg/dL [facility] Est Glomerular Filtration Rate 59(L) >=60 [facility] Comment: This estimated GFR (eGFR) value was calculated using the MDRD equation which has been validated on patients between the ages of 18 and 70. The MDRD should not be used to assess kidney function in patients < 18 years of age or in patients with extremes of body mass, or in patients with acute kidney failure. This value should be multiplied by 1.2 for patients. For further information please copy and paste the following links into your internet browser. [email or web address] Blood specimen (specimen) 04/16/2017 4:12 AM EDT 04/16/2017 4:24 AM EDT Narrative Resulting Agency Comment Spec In Lab Radha Mathew MD CHEMISTRY ORDERABLES [facility] [place] [address] * (ABNORMAL) APTT (04/16/2017 4:12 AM EDT) Partial Thromboplastin Time 40(H) 25 - 35 sec [facility] Comment: The recommended therapeutic range for full dose, unfractionated heparin at [facility] is 80 ? 114 seconds. The use of the anti-Xa (heparin) level rather than the PTT is recommended for monitoring anticoagulation intensity in critically ill patients receiving unfractionated heparin by continuous IV infusion. Blood specimen (specimen) 04/16/2017 4:12 AM EDT 04/16/2017 4:24 AM EDT Narrative Resulting Agency Comment Spec In Lab Alexy Vincent MD HEMATOLOGY ORDERABLE S Performing Organization Address City/[facility]/ZIP Co de Phone Number [facility] [place] [address] * (ABNORMAL) Prothrombin Time (04/16/2017 4:12 AM EDT) Prothrombin Time 22.2(H) 12.0 - 15.0 sec [facility] Comment: An INR <2.0 indicates adequate procoagulant activity for hemostasis in most patients without underlying bleeding disorders, though the INR may not adequately reflect hemostatic capacity in patients with liver disease and synthetic impairment. The recommended target INR range for therapeutic anticoagulation is 2.0 ? 3.0 for most applications, though lower and higher ranges may be appropriate depending on clinical circumstances. International Normalization Ratio 1.8(H) 0.9 - 1.1 [facility] Blood specimen (specimen) 04/16/2017 4:12 AM EDT 04/16/2017 4:24 AM EDT Narrative Resulting Agency Comment Spec In Lab Radha Mathew MD HEMATOLOGY ORDERABLE S Performing Organization Address City/[facility]/ZIP Co de Phone Number [facility] [place] [address] * (ABNORMAL) Potassium (04/15/2017 6:59 PM EDT) Potassium 3.0(Criti boni) 3.5 - 5.0 mmol/L [facility] Comment: Called by: CATIE, Read back by: PRABHAKAR SAUL, Date/Time:04/15/17 19:34. Please note: ??Patients with WBC >100,000 may have falsely elevated Potassium levels. ??For accurate Potassium quantification in these patients send serum separator tube (gold top) for subsequent determinations. ??Contact the Clinical Chemistry Laboratory if there are any questions. Blood specimen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
--- OUTSIDE RECORDS SUMMARY | 2024-10-09 15:18 | XMS_ITS | Encounter Summary ---
Author Organization [facility] Address [facility] [place] [address] Care Team Providers Care Manager Spanish Name Role Phone Xander Kearns DO Primary Care Provider Encounter Details Date Type Department Care Team (Latest Contact Info) Description 04/13/2017 6:51 PM EDT - 04/13/2017 11:59 PM EDT Hospital Encounter Radiology Library at [facility] [place] [phone] Discharge Disposition: Home Social History Tobacco Use [...] 2 times daily. 60 tablet 04/24/2017 05/22/2017 warfarin (COUMADIN) 5 mg Tablet Take 5 mg by mouth daily. 04/24/2017 bumetanide (BUMEX) 2 mg Tablet Take 2 mg by mouth daily. 05/22/2017 metOLazone (ZAROXOLYN) 2.5 mg Tablet Take 2.5 mg by mouth daily. 05/22/2017 documented as of this encounter Plan of Treatment Not on file documented as of this encounter Procedures Procedure Name Priority Date/Time Associated Diagnosis Comments REQUEST FOR 2ND READ CT CHEST ABDOMEN PELVIS STAT 04/13/2017 6:51 PM EDT documented in this encounter Results * Request For 2nd Read CT Chest [...] after the administration of IV contrast, at [facility] on April 13, 2017. 1430 [...] performedafter the administration of IV contrast, at [facility] onJuly 2016. 1430 hours. COMPARISON: [...] Kimble MD IMG OUTSIDE INTERPRE TATION ORDERABLES documented in this encounter Visit Diagnoses Not on filedocumented in this encounter Care Teams Manager Spanish Relationship Specialty Start Date End Date Xander Kearns DO [address] [place] [address] [place] [address] PCP - General 08/17/10 documented as of this encounter
--- OUTSIDE RECORDS SUMMARY | 2024-10-09 15:18 | XMS_ITS | Referral Summary ---
Author Organization [facility] Address [address] [place] [address] Care Team Providers Care Drag Down Name Role Phone Kimberlee Leroy MD Primary Care Provider Unavail able Social History Tobacco Use Types Packs/Day Years Used Date Smoking Tobacco: Never Assessed Interpersonal Safety Answer Date Record ed Physically Hurt Never 04/26/2020 Verbally Threaten Not on file 04/26/2020 Sex and Gender Information Value Date Recorded Sex Assigned at Not on file Legal Sex Male 18:35 EST Gender Identity Not on file Sexual Orientation Not on file Plan of Treatment Not on file Insurance MEDICARE Care Teams Drag Down Relationship Specialty Start Date End Date Kimberlee Leroy MD PCP - General 07/19/12
--- OUTSIDE RECORDS SUMMARY | 2024-10-09 15:18 | XMS_ITS | Encounter Summary ---
Author Organization [facility] [place] [address] Care Team Providers Care Manager Work Name Role Phone Xander Kearns DO Primary Care Provider [phone] Reason for Visit * Reason Comments Lymphedema My legs are swollen * Consultation (Routine) - Closed Specialty Diagnoses / Procedures Referred By Kaylynn zaragoza Referred To Contact Vascular Surgery Diagnoses severe lymphedema both lower extremities Nelson Clark MD [address] [place] [id number] [facility] [address] [place] [address] Referral ID Status Reason Start Date Expiration Date V isits Requested Visits Authorized [id number] Closed Evaluate [facility] 05/11/2016 05/11/2017 1 1 Encounter Details Date Type Department Care Team (Late st Contact Info) Description 06/17/2016 3:00 PM EDT Office Visit [place] [address] Nancy Garcia PA [address] [facility] [place] [address] Lymphedema of both lower extremities Social History Tobacco Use Types Packs/Day Years [...] Sign Reading Time Taken Comments Blood Pressure 128/67 06/17/2016 2:16 PM EDT Pulse 73 06/17/2016 2:16 PM EDT Temperature - - Respiratory Rate 18 06/17/2016 2:16 PM EDT Oxygen Saturation - - Inhaled Oxygen Concentration - - Weight 128.8 kg (284 lb) 06/17/2016 2:16 PM EDT Height 180.3 cm (5' 11) 06/17/2016 2:16 PM EDT Body Mass Index 39.61 06/17/2016 2:16 PM EDT documented in this encounter Patient Instructions * Patient Instructions* Nancy Garcia PA - 06/17/2016 3:00 PM EDT Mr. Stone has significant lymphedema of both lower legs. There was no significant venous reflux today that requires further vascular intervention. We had a long discussion regarding edema management. I have recommended weight loss, sodium restriction diet, periodic leg elevation, continued use of compression dressings to both legs daily, and lymphedema pumps. His pump should be reevaluated - he should be considered for a pump that would allow him to treat both legs. Ideally, he should pump for an hour twice daily on both legs to attain better overall management of his edema. I also stressed the importance of moisturizers daily to maintain skin integrity. We can see him on an as needed basis but would be happy to see him back or answer questions should new concerns arise. documented in this encounter Progress Notes * Nancy Garcia PA - 06/17/2016 3:00 PM EDT This is a new patient to the practice who is being evaluated for leg edema and was referred by XANDER KEARNS DO. Mr. Stone has a history of bilateral lower extremity edema. He believes this became significantly worse about 4-5 years ago and now he has severe swelling of both lower legs, right worse than left. This occurs every day and worsens as the day goes on and does not completely resolve overnight. Hehas been seen in the past for lymphedema treatment and does wear some type of compression wrap on mildred th legs daily (not worn today so that his legs would fit in pants). He also has some type of compression pump that he uses on one leg at at time once daily. He pumps the right leg one evening and then the left leg the next evening but has not done both in the same day. He has not had any wounds recently but was admitted sometime last year because of cellulitis related to ruptured blisters on the left lower leg. He is overweight and admits that he uses a lot of salt in his food. He does not take breaks to elevate his legs during the day. He has been having significant bilateral knee pain (worse on the right)which limits his mobility. He denies a history of DVT/SVT but thinks he had some kind of vein surgery in the past where they burned the veins. PMHx: Patient Active Problem List Diagnosis Date Noted ??? Lymphedema of both lower extremities 06/17/2016 ??? Morbid obesity 06/17/2016 ??? History of breast cancer in male 06/17/2016 ??? Degenerative joint disease of knee 06/17/2016 ??? Atrial fibrillation ??? 1St degree AV block ??? Hyperlipidemia ??? Hypertension ??? Chronic gastritis PSxHx: Past Surgical History Procedure Laterality Date ??? Mastectomy Left 08/2007 ??? Total knee arthroplasty Left 2010 ??? Upper gastrointestinal endoscopy 2011 ??? Vein surgery Radiofrequency ablation Family Hx: Family History Problem Relation Age of Onset ??? Deep Vein Thrombosis Neg Hx Social Hx: Social History Substance Use Topics ??? Smoking status: Former Smoker ??? Smokeless tobacco: Former User ??? Alcohol use Yes Medications: Medications 06/17/16 1604 Medication Sig Taking? DILTiazem (DILTIAZEM CD) 120 mg Capsule, Sust. Release 24 hr Take 120 mg by mouth daily. Yes predniSONE (DELTASONE) 20 mg Tablet Take 20 mg by mouth. Yes warfarin (COUMADIN) 5 mg Tablet Take 5 mg by mouth daily. Yes bumetanide (BUMEX) 2 mg Tablet Take 2 mg by mouth daily. Yes metOLazone (ZAROXOLYN) 2.5 mg Tablet Take 2.5 mg by mouth daily. Yes Allergies: No Known Allergies Review of Systems: Constitutional (weight change, fever) - Denies Neuro (dizziness, seizures, numbness, tingling) - Denies Eyes (vision) - Denies Ears, nose, throat (hearing) - Denies Cardiovascular (CP) - Denies Respiratory (SOB) - Denies GI (abd pain, nausea, emesis, blood in stool) - Denies (hematuria, dysuria, frequency) - Denies Muscoloskeletal (extremity pain, weakness) - as per HPI Skin (ulcers, rashes) - Denies All other ROS negative Physical Exam: Vitals: Vitals: 06/17/16 1416 BP: 128/67 Pulse: 73 Resp: 18 Gen: No acute distress. HEENT: Normocephalic, atraumatic. PERR, EOMs intact bilaterally. No scleral icterus. Neck: Supple, no JVD. Heart: Regular rate and rhythm. Lungs: Regular respiratory rate with no increased work of breathing. Abd: Morbidly obese, soft, nontender, not distended Vascular Exam: R L DP 2/2 2/2 PT Unable to palpate (? Due to edema) Unable to palpate (? Due to edema) 3+ edema bilateral lower extremities without truncal varicosities. Spider telangiectasias throughout bilateral lower legs <3 sec cap refill bilateral feet Skin: warm, pink, no tissue loss. Hyperpigmentation and lipodermatosclerosis bilateral lower legs, right more advanced than left Digits/Nails: No evidence of clubbing, cyanosis, ischemia, or tissue loss. Musculoskeletal: Gait - stable with cane, no notable motor sensory deficits on gross examination. Psych: AAOx3, mood/affect congruent Labs/Studies: Venous duplex for reflux: 06/17/16 Interpretation: Right- No deep venous reflux. Isolated superficial reflux in the GSV at the knee and mid calf. No evidence of common femoral, femoral, or popliteal DVT. SSV vein could not be identified. Left- No deep venous reflux. Isolated superficial reflux in the GSV at the proximal to mid calf. Noevidence of common femoral, femoral, or popliteal DVT. SSV vein could not be identified. Impression: Lymphedema with superficial venous insuffiencey, morbid obesity Recommendations: Mr. Stone has significant lymphedema of both lower legs. There was no significant venous reflux today that requires further vascular intervention. We had a long discussion regarding edema management. I have recommended weight loss, sodium restriction diet, periodic leg elevation, continued use of compression dressings to both legs daily, and lymphedema pumps. His pump should be reevaluated - he should be considered for a pump that would allow him to treat both legs. Ideally,he should pump for an hour twice daily on both legs to attain better overall management of his edema. I also stressed the importance of moisturizers daily to maintain skin integrity. We can see him on an as needed basis but would be happy to see him back or answer questions should new concerns arise. I spent >50% of a 45 minute visit today in counseling this patient on the above plan of care. documented in this encounter Plan of Treatment Not on file documented as of this encounter Visit Diagnoses Diagnosis Lymphedema of both lower extremities documented in this encounter Care Teams Manager Work Relationship Specialty Start Date End Date Xander Kearns DO [address] [place] [address] PCP - General 08/17/10 documented as of this encounter
--- OUTSIDE RECORDS SUMMARY | 2024-10-09 15:18 | XMS_ITS | Encounter Summary ---
Author Organization [facility] Address [address] [place] [address] Care Team Providers Care Manager Internet Retails Sales Name Role Phone Kimberlee Leroy MD Primary Care Provider Unavail able Encounter Details Date Type Department Care Team (Late st Contact Info) Description 05/26/2017 Results Only [facility] [phone] Areli Garcia, DO [address] [place] [address] Social History Tobacco Use Types Packs/Day Years Used Date Smoking Tobacco: Never Assessed Sex and Gender Information Value Date Recorded Sex Assigned at Not on file Legal Sex Male 18:35 EST Gender Identity Not on file Sexual Orientation Not on file documented as of this encounter Plan of Treatment Not on file documented as of this encounter Procedures Procedure Name Priority Date/Time Associated Diagnosis Comments SURGICAL PATHOLOGY Routine 05/26/2017 13 :21 EDT documented in this encounter Results * SURGICAL PATHOLOGY (05/26/2017 13:21 EDT) Pathology Report: SURGICAL PATHOLOGY REPORT Reports generated via electronic interface contain original data; however they are lacking the format of the original report. Caution should be taken when reading/interpret ing unformatted reports. Name: ? DARIO STONE ? Accession #: ? [id number] ? : ? 1935 (Age: 81) ??M ? Collect Date: ? 05/26/2017 ? Location: ? [facility] ? Receive Date: ? 05/26/2017 ? Provider: ARELI GARCIA DO Copy to: CARMEN BERKOWITZ MD ? Final Pathologic Diagnosis: GALLBLADDER, CHOLECYSTECTOMY: - ??Severe acute on chronic cholecystitis, focally necrotizing. - ??Cholelithiasis. Document reviewed and electronically signed by: BARRETT GRAHAM MD Report ??Date: 06/02/2017 10:31 By the signature above, the attending physician certifies that he/she has personally conducted a gross and/or microscopic examination of the described specimens and rendered or confirmed the above diagnosis. Specimen(s) Received: Gallbladder Clinical History: Acute cholecystitis with cholelithiasis Gross Description: ? Received in formalin labelled with proper patient identification (initials L, R) and gallbladder is a disrupted gallbladder (8.5 x 7.5 x 5.0 cm) with a segment of cystic duct (0.2 cm in length x 0.2 cm in diameter). The serosa is dull maldonado to green. The mucosa is dark green and velvety and the wall ranges from 0.1 cm to 1.0 cm in thickness. The cystic duct lumen is patent. The cystic duct margin is inked black. Multiple bosselated, bright yellow to orange choleliths are present (measuring 4.5 x 4.5 x 1.3 cm) in aggregate. Two traveling sales representative sections and the inked en face cystic duct margin are submitted in 1. COURTNEY Matson (ASCP) 05/31/2017 12:29 PM End of Report [facility] 05/26/2017 13:2 1 EDT 05/26/2017 13:21 EDT us Areli Garcia DO PATHOLOGY ORDERABLES Final Res ult [facility] [address] [place] [address] documented in this encounter Visit Diagnoses Not on filedocumented in this encounter Care Teams Manager Internet Retails Sales Relationship Specialty Start Date End Date Kimberlee Leroy MD PCP - General 07/19/12 documented as of this encounter
--- OUTSIDE RECORDS SUMMARY | 2024-10-09 15:18 | XMS_ITS | Encounter Summary ---
Author Organization [facility] Address [facility] [place] [address] Care Team Providers Care Athletic Field Custodian Name Role Phone Xander Kearns DO Primary Care Provider [phone] Encounter Details Date Type Department Care Team (Late st Contact Info) Description 12/16/2008 Orders [place] [address] Scout Sandoval MD [facility] [place] [address] Social History Tobacco Use Types Packs/Day Years Used Date Smoking Tobacco: Never Assessed Sex and Gender Information Value Date Recorded Sex Assigned at Not on file Gender Identity Not on file Sexual Orientation Not on file documented as of this encounter Plan of Treatment Not on file documented as of this encounter Procedures Procedure Name Priority Date/Time Associated Diagnosis Comments SURGICAL PATHOLOGY REPORT Routine 12/16/2008 3:13 PM EDT documented in this encounter Results * Surgical Pathology Report (12/16/2008 3:13 PM EDT) Surgical Pathology Report [id number] ? Location: 4T The signing pathologist has (i) examined the relevant preparation(s) for the specimen(s) and (ii) rendered or confirmed the diagnosis(es). . ?Pathology Surgical Pathology Final Report Clinical Information Specimen Submitted: A - Polyp: Ascending Colon Clinical History: Polyps - R/O TAS Clinical Diagnosis: 1-yr surveillance Gross Description Labeled/Fixative : ? Polyp ascending colon, formalin. Qty/Size/Weight: ?Single, 0.7 x 0.6 x 0.5 cm. Tissue Description: ?? Polypoid portion of pink-maldonado tissue. ??On sectioning, ?portions of the specimen are friable and fragment ?away from the primary specimen. Sections/Process ing: ??The specimen is bisected. ??(T1) ??aje/EJR Microscopic Description Slides reviewed, microscopic description not recorded. Diagnosis Ascending colon, endoscopic biopsies: ?Tubular adenoma. CR-0 12/17/08 [place] 12/18/08 Verified by: ? Jim KWONG, Chanda ?Pathologist ?(Electronic Signature) The attending pathologist whose signature appears on this report has reviewed all diagnostic slides and has edited the gross and/or microscopic portion of the report in rendering the final pathologic diagnosis. TETO HASSAN 12/16/2008 3:13 PM EDT Scout Sandoval MD PATHOLOGY/CYTOLOGY O RDERABLES TETO HASSAN documented in this encounter Visit Diagnoses Not on filedocumented in this encounter Care Teams Athletic Field Custodian Relationship Specialty Start Date End Date Xander Kearns DO [address] [place] [address] PCP - General 08/17/10 documented as of this encounter
--- OUTSIDE RECORDS SUMMARY | 2024-10-09 15:18 | XMS_ITS | Encounter Summary ---
Author Organization [facility] Address [facility] [place] [place] [address] Care Team Providers Care Silk Examiner Name Role Phone Xander Kearns DO Primary Care Provider [phone] Encounter Details Date Type Department Care Team (Late st Contact Info) Description 07/24/2007 Orders [place] [address] Scout Sandoval MD [facility] [place] [address] Social History Tobacco Use Types Packs/Day Years [...] Associated Diagnosis Comments SURGICAL PATHOLOGY REPORT Routine 07/24/2007 5:56 PM EDT documented in this encounter Results * Surgical Pathology Report (07/24/2007 5:56 PM EDT) Surgical Pathology Report [id number] ? Location: The signing pathologist has (i) examined the relevant preparation(s) for the specimen(s) and (ii) rendered or confirmed the diagnosis(es). . ?Pathology Surgical Pathology Final Report Clinical Information Specimen Submitted: A - Polyps: ascending colon x 2 B - Polyps: Fragments, hepatic flexure C - GIBX: Distal esophagus Clinical History: Polyps - R/O TAS Rodas's - R/O Dysplasia Clinical Diagnosis: large colon polyp @ hepatic flexure/morning vomiting Gross Description A - Labeled/Fixative: Ascending colon polyps x 2, formalin. Qty/Size/Weight: ?Three, averaging 0.3 x 0.3 x 0.2 cm. Tissue Description: ?? Soft, maldonado tissues. Sections/Processi ng: ??(T1) B - Labeled/Fixative: Hepatic flexure polyp fragments, formalin. Qty/Size/Weight: ?Multiple, 3 x 2 x 1 cm in aggregate. Tissue Description: ?? Soft, maldonado-red polypoid tissue fragments. Sections/Processi ng: ??(T7) C - Labeled/Fixative: Distal esophagus Bx, formalin. Qty/Size/Weight: ?Three, averaging 0.3 x 0.2 x 0.2 cm. Tissue Description: ?? Soft, maldonado-red tissues. Sections/Processi ng: ??(T1) ?hemalatha/SNS Microscopic Description Slides reviewed, microscopic description not recorded. Diagnosis A - Ascending colon polyps: ?Fragments of tubular adenoma. B - Hepatic flexure polyps: ?Fragments of tubular adenoma. C - Distal esophagus biopsy: ? Squamocolumnar junctional mucosa (cardia type) with no evidence of ?intestinal metaplasia. CR-0 07/27/07 [facility] 07/27/07 Verified by: ? Thomas Lane MD ?Pathologist ?(Electronic Signature) The attending pathologist whose signature appears on this report has reviewed all diagnostic slides and has edited the gross and/or microscopic portion of the report in rendering the final pathologic diagnosis. [facility] 07/24/2007 5:56 PM EDT Scout Sandoval MD PATHOLOGY/CYTOLOGY O RDERABLES [facility] documented in this encounter Visit Diagnoses Not on filedocumented in this encounter Care Teams Silk Examiner Relationship Specialty Start Date End Date Xander Kearns DO [address] [place] [address] PCP - General 08/17/10 documented as of this encounter
--- OUTSIDE RECORDS SUMMARY | 2024-10-09 15:18 | XMS_ITS | Encounter Summary ---
Author Organization [facility] Address [facility] [place] [address] Care Team Providers Care Ticket Printer And Tagger Name Role Phone Xander Kearns DO Primary Care Provider Encounter Details Date Type Department Care Team (Latest Contact Info) Description 04/13/2017 6:40 PM EDT - 04/13/2017 6:49 PM EDT Hospital Encounter Radiology Library at [facility] [place] [phone] Discharge Disposition: Home Social History Tobacco Use [...] Diagnosis Comments REQUEST FOR 2ND READ CT HEAD AND SPINE STAT 04/13/2017 6:40 PM EDT documented in this encounter Results * Request For 2nd Read CT Head [...] CT head and cervical spine performed at [facility] COMPARISON: None FINDINGS: Head: Periapical lucency with [...] [facility] FINDINGS: Head: Periapical lucency with [...] on filedocumented in this encounter Care Teams Ticket Printer And Tagger Relationship Specialty Start Date End Date Xander Kearns DO [address] [place], [place] [address]Y [facility] [address] [place] [address] PCP - General 08/17/10 documented as of this encounter
--- OUTSIDE RECORDS SUMMARY | 2024-10-09 15:18 | XMS_ITS | Encounter Summary ---
Author Organization [facility] [place] [address] Care Team Providers Care Bus And Sys Integration Senior Manager Name Role Phone SomXander gonsales Primary Care Provider Encounter Details Date Type Department Care Team (Latest Contact Info) Description 06/17/2016 12:15 PM EDT - 06/17/2016 11:59 PM EDT Hospital En[place] [phone] [address] [place] Lymphedema Discharge Disposition: Home Social History Tobacco Use [...] Sig Dispensed Refills Start Date End Date DILTiazem (DILTIAZEM CD) 120 mg Capsule, Sust. Release 24 hr Take 120 mg by mouth daily. predniSONE (DELTASONE) 20 mg Tablet Take 20 mg by mouth. 017 warfarin (COUMADIN) 5 mg Tablet Take 5 mg by mouth daily. 04/24/2017 bumetanide (BUMEX) 2 mg Tablet Take 2 mg by mouth daily. 05/22/2017 metOLazone (ZAROXOLYN) 2.5 mg Tablet Take 2.5 mg by mouth daily. 05/22/2017 documented as of this encounter Plan of Treatment Not on file documented as of this encounter Procedures Procedure Name Priority Date/Time Associated Diagnosis Comments VENOUS VALVULAR INCOMP, BILAT LEGS Routine 06/17/2016 12:30 PM EDT Lymphedema documented in this encounter Results * Venous Valvular Incomp, Bilat Legs (06/17/2016 12:30 PM EDT) VB Text Report Department: Vascular Surgery Lab Patient: [id number] (DARIO STONE) CPT: 04330 ICD10: I89.0;I87.2 Referring Physician: LIUDMILA PRASAD ?? Phone: Indications: Severe lymphedema, ? venous insufficiency. ICD10 Diagnosis Code: I89.0, I87.2 Findings: Right ?Reflux? Diameter (mm) ??Depth (mm) ?? Common Femoral Vein ?Competent ? Femoral Vein ? Competent ? Popliteal ?Competent ? Posterior Tibial Vein ??Competent ? GSV, Near SFJ ?Competent ? GSV, Proximal Thigh ?Competent ? 9.2 ?14.7 ?? GSV, Mid Thigh ? Competent ? 4.7 ?13.8 ?? GSV, Distal Thigh ?Competent ? 4.9 ? 3.8 ?? GSV, ??Knee ? Reflux ? GSV Prox Calf ?Competent ? GSV, Mid Calf ?Reflux ? GSV, Distal Calf ? Competent ? SSV ?Not Identified ? Left ? Reflux? Diameter (mm) ??Depth (mm) ?? Common Femoral Vein ?Competent ? Femoral Vein ? Competent ? Popliteal ?Competent ? Posterior Tibial Vein ??Competent ? GSV, Near SFJ ?Competent ? 4.5 ?28.2 ?? GSV, Proximal Thigh ?Competent ? GSV, Mid Thigh ? Competent ? 4.3 ?13.4 ?? GSV, Distal Thigh ?Competent ? 4.5 ?21.8 ?? GSV, ??Knee ? Competent ? GSV Prox Calf ?Reflux ? GSV, Mid Calf ?Reflux ? GSV, Distal Calf ? Competent ? GSV, Ankle ? Not Identified ? Interpretation: Right- No deep venous reflux. Isolated superficial reflux in the GSV at the knee and mid calf. No evidence of common femoral, femoral, or popliteal DVT. SSV vein could not be identified. Left- No deep venous reflux. Isolated superficial reflux in the GSV at the proximal to mid calf. No evidence of common femoral, femoral, or popliteal DVT. SSV vein could not be identified. Comparison: ??No previous study in our vascular lab database for comparison. Electronically Signed by: LIUDMILA PRASAD on 2016-06-19 08:08:34 PM [facility] VB Text Report End of Report [facility] 06/17/2016 12:3 0 PM EDT Liudmila Prasad MD VASCULAR ORDERA BLES [facility] documented in this encounter Visit Diagnoses Diagnosis Lymphedema Other lymphedema documented in this encounter Care Teams Bus And Sys Integration Senior Manager Relationship Specialty Start Date End Date Xander Kearns DO [address] [place] [address] PCP - General 08/17/10 documented as of this encounter
--- OUTSIDE RECORDS SUMMARY | 2024-10-09 15:18 | XMS_ITS | Encounter Summary ---
Author Organization [facility] Address [address] [place] [address] Care Team Providers Care Shirt Sewer Name Role Phone Kimberlee Leroy MD Primary Care Provider Unavail able Encounter Details Date Type Department Care Team (Late st Contact Info) Description 08/09/2021 Lab Requisition [facility] Pathology & Laboratory Medicine - [facility] [address] [place] [address] Rayomn Delgadillo MD [address] [place] [address] [place] [address] Hematuria, unspecified; Other specified disorders of bladder Social History Tobacco Use Types Packs/Day Years [...] Priority Date/Time Associated Diagnosis Comments SURGICAL PATHOLOGY Today 08/09/2021 9:10 EST Hematuria, unspecified Other specified disorders of bladder documented in this encounter Results * SURGICAL PATHOLOGY (08/09/2021 9:10 EST) Note to Patient The following pathology results have been interpreted by your pathologist and may be available to you before your health provider has had the opportunity to review them. Please allow time for your provider to receive these results and explore management options, if applicable. 08/13/2021 15:06 [facility] Final Diagnosis A. URINARY BLADDER, PROSTATIC URETHRA, TRANSURETHRAL RESECTION (TURBT): - Non-invasive high-grade papillary urothelial carcinoma. See comment and synoptic report. - Muscularis propria is present, and uninvolved by tumor. 08/13/2021 15:06 [facility] Diagnosis Comment A background low-grade component is also present. Deeper sections have been examined for block A5. Solution Director slides of this case were reviewed at the intradepartmental consultation conference. 08/13/2021 15:06 [facility] Attestation There was significant resident/fellow involvement in the diagnostic evaluation of this case. By the signature below, the attending physician certifies that they have personally conducted a gross and/or microscopic examination of the described specimens and rendered or confirmed the above diagnosis. 08/13/2021 15:06 [facility] at 1506 Synoptic URINARY BLADDER: Biopsy and Transurethral Resection of Bladder Tumor (TURBT) URINARY BLADDER: BIOPSY AND TURBT - All Specimens 8th Edition - Protocol posted: 11/21/2018 SPECIMEN ?? Procedure: ?Transurethral resection of bladder (TURBT) TUMOR ?? Tumor Site: ?Not specified ?? Histologic Type: ?Papillary urothelial carcinoma, noninvasive ?? Histologic Grade: ?High-grade ?? Tumor Extension: ?Noninvasive papillary carcinoma ?? Tumor Configuration: ?Papillary ?? Muscularis Propria Presence: ?Muscularis propria (detrusor muscle) present ?? Lymphovascular Invasion: ?Not identified ADDITIONAL FINDINGS ?? Associated Epithelial Lesions: ?None identified 08/13/2021 15:06 [facility] Clinical History Hematuria, bladder mass; clinical diagnosis code: E31.9, N32.89 08/13/2021 15:06 [facility] Gross Description A. Received in formalin labelled with proper patient identification (initials L, R) and papillary mass in bladder and prostatic urethra are multiple maldonado-vergara soft tissue fragments (10.9 g, 4.3 x 2.7 x 0.4 cm in aggregate). There is a minimal amount of admixed hemorrhagic material. The specimen is entirely submitted as A1-A9. Joseph Hernandez MD 08/10/2021 13:47 08/13/2021 15:06 [facility] Resident/Fell ow: Joseph Hernandez MD 08/13/2021 15:06 EST [facility] Performing Lab [facility] 08/13/2021 15:06 EST [facility] Scanned Images 08/13/2021 15:06 [facility] Tissue URINARY BLADDER BIOPSY SPECIMEN / Unknown 08/09/2021 9:10 EST 08/09/2021 16:30 EST us Raymon Delgadillo MD PATHOLOGY ORDERABLES Maryse gil Result [facility] [address] [place] [address] documented in this encounter Visit Diagnoses Diagnosis Hematuria, unspecified Other specified disorders of bladder documented in this encounter Care Teams Shirt Sewer Relationship Specialty Start Date End Date Kimberlee Leroy MD PCP - General 07/19/12 documented as of this encounter
--- OUTSIDE RECORDS SUMMARY | 2024-10-09 15:18 | XMS_ITS | Encounter Summary ---
Author Organization [facility] Address [address] [place] [address] Care Team Providers Care Hydroelectric Plant Electrical Engineer Name Role Phone Unavailable Primary Care Provider Unavailabl e Encounter Details Date Type Department Care Team (Late st Contact Info) Description 09/11/2008 Before [facility] Converted Visit ([place]) [address] [address] Dc Bueno MD [address] [place] [address] Social History Tobacco Use Types Packs/Day Years [...] Date/Time Associated Diagnosis Comments SURGICAL PATHOLOGY Routine 09/11/2008 0:00 EST documented in this encounter Results * SURGICAL PATHOLOGY (09/11/2008 0:00 EST) Pathology Report: SURGICAL PATHOLOGY REPORT ? Reports generated via electronic interface contain original data; ? however they are lacking the format of the original report. ? Caution should be taken when reading/interpreti ng unformatted reports. ? Name: ? LANGMAID, DARIO ? Accession #: ? [id number] ? : ? 1935 (Age: 72) ??M ? Collect Date: ? 09/11/2008 ? Location: ? [facility] ? Receive Date: ? 09/11/2008 ? Provider: DC BUENO MD ? Copy to: BALDEV F HAYLIE DO ? Final Pathologic Diagnosis: ? Skin of face, right, excision: ? 1. 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 ? - Melanoma confined to epidermis (Jethro's level I). ? - Melanoma in situ present approximately 1.5 mm from medial and lateral margins. See comment. ? 2. ?? Epidermal reparative change and dermal scar, consistent with biopsy ?? site. ? 3. ?? Chronic solar damage with mild atypical melanocytic hyperplasia. ? 4. ?? 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 5. ?? Incidental syringoma. ? 6. ?? Incidental seborrheic keratosis. ? 7. ?? Incidental melanocytic nevus, intradermal type. ? Comment: ? The excision was reviewed in conjunction with the previous incisional ? biopsy from this site ([id number]). ??The excision specimen has central residual melanoma in situ of the lentigo maligna type. ??The melanoma in situ has features similar to those noted in the biopsy specimen, including follicular involvement. There is background atypical melanocytic hyperplasia associated with chronic ?? solar damage. ??Additionally, there are pronounced inflammatory changes with ? features of seborrheic dermatitis. ??Distinction of the margins of the melanoma ?? in situ is somewhat precluded by the background melanocytic hyperplasia and ? inflammatory changes. ??The melanoma in situ appears to be encompassed by the ? margins of the excision, but is present within 2 mm of the medial and lateral ?? margins in the central portion of the excision. ??(Dr. Hinton)/isha ? Document reviewed and electronically signed by: ? Lissa Hinton MD ? Report ??Date: 09/12/2008 16:34 ? By the signature above, the attending physician certifies that he/she has ? personally conducted a gross and/or microscopic examination of the described ? specimens and rendered or confirmed the above diagnosis. ? Specimen(s) Received: ? Right face ??suture superior ? Clinical History: ? Lentigo maligna ? Gross Description: ? Received in formalin labelled [place] and lentigo maligna, suture ? superior is an oriented elliptical excision of skin with a suture designating ?? superior. ??The specimen measures 4.8 cm superior to inferior by ??1.6 cm medial ?? to lateral and is excised to a depth of 0.5 cm. ??There is a 0.8 x 0.8 cm maldonado ? macule consistent with a scar centrally. ??The medial aspect is inked blue and ?? the lateral aspect is inked black. ??The specimen is serially sectioned from ? superior to inferior and entirely submitted as follows: ? BLOCK VERDUZCO ? A1 ?Superior tip, reverse en face ? A2-A5 ?Twelve central sections, superior to inferior ? A6 ?Inferior tip, reverse en face ? (Dr. Louis)/tmg ? End of Report ? [facility] 09/11/2008 09/11/2008 15: 17 EST us Dc Bueno MD PATHOLOGY ORDERABLES Final Resul t Performing Organization Address City/State/[place] Phone Number [place] [phone] documented in this encounter Visit Diagnoses Not on filedocumented in this encounter
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
--- OUTSIDE RECORDS SUMMARY | 2024-10-09 15:18 | XMS_ITS | Encounter Summary ---
Author Organization [facility] Address [address] [place] [address] Care Team Providers Care Radioisotope Technologist Name Role Phone Kimberlee Leroy MD Primary Care Provider Unavail able Encounter Details Date Type Department Care Team (Late st Contact Info) Description 12/30/2014 Results Only [facility] [phone] Jordan Hope MD [address] [place] [address] [address] [place] [id number] Social History Tobacco Use Types Packs/Day Years [...] Date/Time Associated Diagnosis Comments SURGICAL PATHOLOGY Routine 12/30/2014 9:08 EDT documented in this encounter Results * SURGICAL PATHOLOGY (12/30/2014 9:08 EDT) Pathology Report: SURGICAL PATHOLOGY REPORT Reports generated via electronic interface contain original data; however they are lacking the format of the original report. Caution should be taken when reading/interpreting unformatted reports. Name: ? DARIO STONE ? Accession #: ? [id number] ? : ? 1935 (Age: 79) ??M ? Collect Date: ? 12/30/2014 ? Location: ? [facility] ? Receive Date: ? 12/30/2014 ? Provider: JORDAN HOPE MD Copy to: BALDEV STALLINGS DO ? Final Pathologic Diagnosis: BREAST, RIGHT, CORE BIOPSY: - ?? Gynecomastia, proliferative stage. ??See comment. Comment: Spinning Machine Tender sections of this case were reviewed at the intradepartmental consultation conference. ?? Document reviewed and electronically signed by: SU SHANKAR MD Report ??Date: 01/01/2015 15:52 By the signature above, the attending physician certifies that he/she has personally conducted a gross and/or microscopic examination of the described specimens and rendered or confirmed the above diagnosis. Specimen(s) Received: Rt breast mass, 5 core needle biopsy Clinical History: Rt breast mass; hx of L breast cancer Gross Description: ? Received in formalin labelled with proper patient identification (initials L, R) and Rt breast mass are five yellow-white fibrofatty tissue cores (1.2 cm to 1.7 cm in length, and each 0.2 cm in diameter). Entirely submitted in blocks 1 and 2. Time removed from patient: ??12/30/2014 at 1303 hrs Time placed in formalin: ??12/30/2014 at 1303 hrs Time out of formalin: ??12/31/2014 at 1100 hrs Bella Canela 12/31/2014 10:05 AM End of Report [facility] 12/30/2014 9:08 EDT 12/30/2014 9:08 EDT us Jordan Hope MD PATHOLOGY ORDERABLES Fin al Result [facility] [address] [place] [address] documented in this encounter Visit Diagnoses Not on filedocumented in this encounter Care Teams Radioisotope Technologist Relationship Specialty Start Date End Date Kimberlee Leroy MD PCP - General 07/19/12 documented as of this encounter
--- OUTSIDE RECORDS SUMMARY | 2024-10-09 15:18 | XMS_ITS | Encounter Summary ---
Author Organization [facility] Address [facility] [place] [address] Care Team Providers Care Fire Code Inspector Name Role Phone Xander Kearns DO Primary Care Provider Encounter Details Date Type Department Care Team (Latest Contact Info) Description 04/13/2017 6:50 PM EDT Hospital Encounter Radiology Library at [facility] [place] [phone] Discharge Disposition: Home Social History Tobacco Use [...] Diagnosis Comments REQUEST FOR 2ND READ CT SPINE STAT 04/13/2017 6:50 PM EDT documented in this encounter Results * Request For 2nd Read CT Spine [...] thefemoral head. Andrey Kimble MD IMG OUTSIDE INTERPRE TATION ORDERABLES documented in this encounter Visit Diagnoses Not on filedocumented in this encounter Care Teams Fire Code Inspector Relationship Specialty Start Date End Date Xander Kearns DO [address] [place] [address] PCP - General 08/17/10 documented as of this encounter
--- OUTSIDE RECORDS SUMMARY | 2024-10-09 15:18 | XMS_ITS | Encounter Summary ---
Author Organization [facility] Address [facility] [place] [address] Care Team Providers Care Hydropulper Operator Name Role Phone SomXander gonsales Primary Care Provider [phone] Encounter Details Date Type Department Care Team (Late st Contact Info) Description 05/12/2016 Orders [place] [address] Lynette Mosquera APRN [facility] [place] [address] Lymphedema Social History Tobacco Use Types Packs/Day Years Used Date Smoking Tobacco: Never Assessed Sex and Gender Information Value Date Recorded Sex Assigned at Not on file Gender Identity Not on file Sexual Orientation Not on file documented as of this encounter Plan of Treatment Not on file documented as of this encounter Results * Venous Valvular Incomp, Bilat Legs (06/17/2016 12:30 PM EDT) VB Text Report Department: Vascular Surgery Lab Patient: [id number] (DARIO STONE) CPT: 07950 ICD10: I89.0;I87.2 Referring Physician: LIUDMILA PRASAD ?? [...] PM EDT Liudmila Prasad MD VASCULAR ORDERA [facility] Organization Address City/State/ZIP Co de Phone Number [employer] documented in this encounter Visit Diagnoses Diagnosis Lymphedema Other lymphedema documented in this encounter Care Teams Hydropulper Operator Relationship Specialty Start Date End Date Xander Kearns DO [address] [place] [address] [address] [place] [address] PCP - General 08/17/10 documented as of this encounter
--- OUTSIDE RECORDS SUMMARY | 2024-10-09 15:18 | XMS_ITS | Clinical Summary ---
Author Organization [facility] Address [address] [place] [address] Care Team Providers Care Healthcare Specialist Name Role Phone Kimberlee Leroy MD Primary [...] Orientation Not on file Plan of Treatment Health Maintenance Due Date Last Done Comments Fall Risk Screening 2001 RSV Immunization ( o r 60+ Years) (1 - 1-dose 75+ series) 2011 COVID-19 Vaccine ( season) 2024 Insurance MEDICARE Care Teams Healthcare Specialist Relationship Specialty Start Date End Date Kimberlee Leroy MD PCP - General 07/19/12
--- OUTSIDE RECORDS SUMMARY | 2024-10-09 15:18 | XMS_ITS | Encounter Summary ---
Author Organization [facility] Address [address] [place] [address] Care Team Providers Care High [employer] Auto Repair Teacher Name Role Phone Kimberlee Leroy MD Primary Care Provider Unavail able Encounter Details Date Type Department Care Team (Latest Contact Info) Description 05/26/2017 14:40 EDT - 05/26/2017 23:59 EDT Hospital Encounter [address] [address] Kimberlee Leroy MD Discharge Disposition: Home or Self Care Social History Tobacco Use Types Packs/Day Years Used Date Smoking Tobacco: Never Assessed Sex and Gender Information Value Date Recorded Sex Assigned at Not on file Legal Sex Male 18:35 EST Gender Identity Not on file Sexual Orientation Not on file documented as of this encounter Discharge Disposition Disposition Code Departure Means Destination Home or Self Assisted documented in this encounter Plan of Treatment Not on file documented as of this encounter Visit Diagnoses Not on filedocumented in this encounter Care Teams [employer] Auto Repair Teacher Relationship Specialty Start Date End Date Kimberlee Leroy MD PCP - General 07/19/12 documented as of this encounter
--- OUTSIDE RECORDS SUMMARY | 2024-10-09 15:18 | XMS_ITS | Encounter Summary ---
Author Organization [facility] Address [address] [place] [address] Care Team Providers Care Link Wire Fabric Machine Operator Name Role Phone Kimberlee Leroy MD Primary Care Provider Unavail able Encounter Details Date Type Department Care Team (Latest Contact Info) Description 12/30/2014 7:01 EDT - 12/30/2014 23:59 EDT Hospital Encounter [address] [address] Kimberlee Leroy MD Discharge Disposition: Home or [...] Code Departure Means Destination Home or Self Long Term documented in this encounter Plan of Treatment Not on file documented as of this encounter Visit Diagnoses Not on filedocumented in this encounter Care Teams Link Wire Fabric Machine Operator Relationship Specialty Start Date End Date Kimberlee Leroy MD PCP - General 07/19/12 documented as of this encounter
--- OUTSIDE RECORDS SUMMARY | 2024-10-09 15:18 | XMS_ITS | Encounter Summary ---
Author Organization [facility] Address [facility] [place] [address] Care Team Providers Care Track Machine Operator Repairer Name Role Phone Som Xander WINTER Primary Care Provider Encounter Details Date Type Department Care Team (Latest Contact Info) Description 04/13/2017 12:30 AM EDT - 04/13/2017 5:24 PM EDT Hospital Encounter Radiology Library at [facility] [place] [phone] Discharge Disposition: Home Social History Tobacco Use [...] Procedure Name Priority Date/Time Associated Diagnosis Comments FILM LIBRARY STORAGE ONLY CT SPINE STAT 04/13/2017 12:30 AM EDT Pain documented in this encounter Results * Film Library- Storage Only CT Spine (04/13/2017 12:30 AM EDT) Narrative LAMONTE REYES - 04/13/2017 4:34 PM EDT This exam is for storage only and is auto-finalizing. Alexy Hua MD IMG FILM LIBRARY ORD ERABLES [place], [place] documented in this encounter Visit Diagnoses Not on filedocumented in this encounter Care Teams Track Machine Operator Repairer Relationship Specialty Start Date End Date Xander Kearns DO [address] [place] [address] PCP - General 08/17/10 documented as of this encounter
--- OUTSIDE RECORDS SUMMARY | 2024-10-09 15:18 | XMS_ITS | Encounter Summary ---
Author Organization [facility] Address [address] [place] [address] Care Team Providers Care Auto Rental Supervisor Name Role Phone Unavailable Primary Care Provider Unavailabl e Encounter Details Date Type Department Care Team (Late st Contact Info) Description 07/18/2012 Results Only [facility] Laboratory Services - [facility] ([facility] [address] [place], [place] [id number] Dc Bueno MD [address] [place] [address] Social History Tobacco Use Types [...] Date/Time Associated Diagnosis Comments SURGICAL PATHOLOGY Routine 07/18/2012 0:00 EDT documented in this encounter Results * SURGICAL PATHOLOGY (07/18/2012 0:00 EDT) Pathology Report: SURGICAL PATHOLOGY REPORT Reports generated via electronic interface contain original data; however they are lacking the format of the original report. Caution should be taken when reading/interpreting unformatted reports. Name: ? DARIO STONE ? Accession #: ? [id number] ? : ? 1935 (Age: 76) ??M ? Collect Date: ? 07/18/2012 ? Location: ? [facility] ? Receive Date: ? 07/18/2012 ? Provider: DC BUENO MD Copy to: BALDEV Alexis HAYLIE DO ? Final Pathologic Diagnosis: A. ?Duodenum, second portion, biopsy: 1. ?Acute erosive duodenitis. ? 2. ?? Immunostaining shows no definitive Helicobacter pylori. ??See comment. ? B. ?? Stomach, fungus, nodule, biopsy: ? 1. ?? Fundic mucosa with mild chronic gastritis and reactive/regenerative changes. See ? comment. 2. ?No Helicobacter pylori-like microorganisms identified on H&E-stained sections. C. ?Esophagus, lower, at 38 cm, biopsy: ?1. ?? Squamocolumnar mucosa with chronic and focal acute columnar inflammation. 2. ?No goblet cell intestinal metaplasia identified. ?? D. ?Colon, ascending, polyps, biopsies: ?1. ?? Tubular adenomas. ? E. ?? Colon, hepatic flexure, polyp, biopsy: ?1. ?? Tubular adenoma. ? F. ?Colon, descending, polyps, biopsies: ?1. ?? Tubular adenomas. ? G. ?Colon, splenic flexure, polyp, biopsy: ?1. ?? Tubular adenoma. ?? Comment: ? Immunostaining for H. pylori (polyclonal, [facility]) is performed on (A). Positive and negative controls stain appropriately. Deeper sections of (B) have been examined. ??Patch Driller sections of (A) and (B) have been reviewed at intradepartmental consultation conference. ??(Dr. Bryant)/mpl ? NOTE: ??One or more of the reagents used in immunohistochemical testing in this case may not have been cleared or approved by the U.S. Food and Drug Administration (FDA). ??The FDA has determined that such clearance or approval is not necessary. ??These tests are used for clinical purposes. ??They should not be regarded as investigational or for research. ??These reagents' performance characteristics have been determined by [facility]. ??This laboratory is certified under the Clinical Laboratory Improvement Amendments of 1988 (CLIA-88) as qualified to perform high complexity clinical laboratory testing. ?? Document reviewed and electronically signed by: JOE BRYANT MD Report ??Date: 07/23/2012 09:33 By the signature above, the attending physician certifies that he/she has personally conducted a gross and/or microscopic examination of the described specimens and rendered or confirmed the above diagnosis. Specimen(s) Received: ? EGD A. ?2nd portion duodenum (#1) B. ? Gastric fundus nodule (#2) C. ? Lower esophagus 38 cm (#3) ? Colonoscopy D. ?Ascending colon polyps x3 (#4) E. ? Hepatic flexure polyp (#5) F. ? Transverse colon polyps x3 (#6) G. ? Splenic flexure polyp x1(#7) Clinical History: ? H/O colon adenomas, GERD, ? s/s Rodas's Gross Description: ? Received in formalin labelled Dario Stone and #1 second portion duodenum is a light maldonado biopsy measuring 0.2 x 0.2 x 0.1 cm. ??The specimen is submitted intact as (A). Received in formalin labelled Dario Stone and #2 gastric fundus nodule is a 0.3 x 0.2 x 0.2 cm light maldonado biopsy. ??The specimen is submitted intact as (B). Received in formalin labelled Dario Stone and #3 lower esophagus 38 cm are three light maldonado biopsies which vary in size from 0.2 x 0.2 x 0.1 cm up to 0.4 x 0.3 x 0.2 cm. ??The specimens are submitted intact as (C). Received in formalin labelled Dario Stone and #4 ascending colon polyp x3 are four light maldonado biopsies which vary in size from 0.2 x 0.2 x 0.2 cm up to 0.3 x 0.2 x 0.2 cm. ??The specimens are submitted intact as (D1) and (D2). Received in formalin labelled Dario Stone and #5 hepatic flexure polyp is a maldonado-brown polypoid structure measuring 0.8 x 0.6 x 0.4 cm. ??Also present are multiple smaller fragments of light maldonado tissue admixed with vegetable material measuring 0.7 x 0.4 x 0.2 cm in aggregate. ??The resection margin of the polyp is inked and the specimen is trisected and submitted entirely as (E1). The remaining tissues are submitted entirely as (E2). Received in formalin labelled Dario Stone and #6 transverse colon polyp x3 are five light maldonado biopsies which vary in size from 0.2 x 0.2 x 0.2 cm up to 0.4 x 0.3 x 0.2 cm. ??The specimens are submitted intact as (F1) and (F2). Received in formalin labelled Dario Stone and #7 splenic flexure polyp is a 0.4 x 0.4 x 0.2 cm light maldonado biopsy. ??The specimen is submitted intact as (G). (Carloz Canela)/mpl ?? End of Report [facility] 07/18/2012 07/18/2012 16: 02 EDT us Dc Bueno MD PATHOLOGY ORDERABLES Final Resul t [facility] [address] [place] [address] documented in this encounter Visit Diagnoses Not on filedocumented in this encounter
--- OUTSIDE RECORDS SUMMARY | 2024-10-09 15:18 | XMS_ITS | Encounter Summary ---
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 1.002 - 1.030 [facility] Color, Urine Dipstick Yellow Yellow [facility] RBC, Urine 3 0 - 3 /HPF [facility] WBC, Urine 96(H) 0 - 3 /HPF [facility] Bacteria, Urine Many(A) None /HPF [facility] Hyaline Casts, Urine 3(H) 0 - 2 /LPF [facility] Reflex to Culture Yes [facility] Urine specimen obtained by clean catch procedure (specimen) 04/24/2017 10:38 AM EDT 04/24/2017 10:49 AM EDT Narrative Resulting Agency Comment Spec In Lab Aristides Irwin MD URINE ORDERABLES Performing Organization Address City/State/[facility] Co de Phone Number [facility] [place] [address] * (ABNORMAL) Differential, Automated (04/24/2017 3:58 AM EDT) Neutrophil % 71.2 % [facility] Neutrophil Absolute 6.97(H) 1.70 - 6.10 x10(3)/mc L [facility] Lymph % 11.4 % [facility] Lymphocytes Abs 1.1 0.9 - 3.2 x10(3)/mc L [facility] Monocyte % 10.4 % [facility] Monocyte Abs 1.0(H) 0.3 - 0.9 x10(3)/[facility] Eos % 4.2 % [facility] Eosinophils Abs 0.4 0.0 - 0.4 x10(3)/[facility] Basophil % 0.6 % [facility] Baso Absolute 0.1 0.0 - 0.1 x10(3)/[facility] Immature Gran % 2.20 % [facility] Comment: Immature granulocytes(IG's)percentage and absolute count will include metamyelocytes, myelocytes, and promyelocytes. Blood smears from CBCs yielding IG's will be scanned manually for concordance. If this scan disagrees with the automated IG or if promyelocytes are noted, a manual differential will be performed. Immature Gran Absolute 0.22(H) 0.00 - 0.04 x10(3)/[facility] Blood specimen (specimen) 04/24/2017 3:58 AM EDT 04/24/2017 4:07 AM EDT Narrative Resulting Agency Comment Spec In Lab Radha Mathew MD HEMATOLOGY ORDERABLE S Performing Organization Address City/State/[facility] Co de Phone Number [facility] [place] [address] * (ABNORMAL) Hemogram (04/24/2017 3:58 AM EDT) White Blood Cell 9.8(H) 4.0 - 9.5 x10(3)/[facility] Red Blood Cell 3.25(L) 4.58 - 5.54 x10(6)/[facility] Hemoglobin 10.1(L) 13.7 - 16.5 gm/dL [facility] Hematocrit 29.6(L) 40.5 - 48.5 % [facility] Mean Cell Volume 91.1 82.9 - 93.1 fL [facility] Mean Cell Hemoglobin 31.1 27.5 - 32.1 pg [facility] Mean Cell Hemoglobin Concentration 34.1 32.0 - 35.7 gm/dL [facility] Platelet 381(H) 145 - 357 x10(3)/mc L [facility] RDW Standard Deviation 43.8 36.0 - 45.0 fL [facility] RDW coefficient of variation 13.2 11.4 - 13.8 % [facility] Mean Platelet Volume 10.1 7.6 - 12.9 fL [facility] NRBC% auto 0.0 % [facility] NRBC Absolute 0.000 0.000 - 0.000 x10(3)/mc L [facility] Blood specimen (specimen) 04/24/2017 3:58 AM EDT 04/24/2017 4:07 AM EDT Narrative Resulting Agency Comment Spec In Lab Radha Mathew MD HEMATOLOGY ORDERABLE S Performing Organization Address [facility] de Phone Number [facility] [place] [address] * (ABNORMAL) Prothrombin Time (04/24/2017 3:58 AM EDT) Prothrombin Time 19.0(H) 12.0 - 15.0 sec [facility] Comment: An INR <2.0 indicates adequate [...] International Normalization Ratio 1.5(H) 0.9 - 1.1 [facility] Blood specimen (specimen) 04/24/2017 3:58 AM EDT 04/24/2017 4:07 AM EDT Narrative Resulting Agency Comment Spec In Lab Mikey Mendosa MD HEMATOLOGY ORDERABLE S Performing Organization Address [facility] Co de Phone Number [facility] [place] [address] * (ABNORMAL) Basic Metabolic Panel (non-fasting) (04/24/2017 3:58 AM EDT) Glucose 125 65 - 199 mg/dL [facility] Comment:Diabetes: >=200 mg/d L plus symptoms Blood Urea Nitrogen 30(H) 10 - 20 mg/dL [facility] Creatinine 1.37 0.80 - 1.50 mg/dL [facility] Comment: Please note that the pediatric reference intervals supplied above were not validated at [facility] Results from pediatric patients should be interpreted in conjunction to the patient's age, height and muscle mass. Sodium 136 135 - 145 mmol/L [facility] Potassium 3.1(L) 3.5 - 5.0 mmol/L [facility] Comment: Please note: ??Patients with WBC >100,000 may have falsely elevated Potassium levels. ??For accurate Potassium quantification in these patients send serum separator tube (gold top) for subsequent determinations. ??Contact the Clinical Chemistry Laboratory if there are any questions. Chloride 93(L) 98 - 107 mmol/L [facility] Carbon Dioxide 29 22 - 31 mmol/L [facility] Anion Gap 14 5 - 15 mmol/L [facility] Calcium 8.8 8.5 - 10.5 mg/dL [facility] Est Glomerular Filtration Rate 50(L) >=60 [facility] Comment: This estimated GFR (eGFR) [...] the following links into your internet browser. [email or web address] Blood specimen (specimen) 04/24/2017 3:58 AM EDT 04/24/2017 4:07 AM EDT Narrative Resulting Agency Comment Spec In Lab Radha Mathew MD CHEMISTRY ORDERABLES Performing Organization Address [facility] Co de Phone Number [facility] [place] [address] * (ABNORMAL) Prothrombin Time (04/23/2017 1:21 PM EDT) Prothrombin Time 17.7(H) 12.0 - 15.0 sec [facility] Comment: An INR <2.0 indicates adequate [...] International Normalization Ratio 1.4(H) 0.9 - 1.1 [facility] Blood specimen (specimen) 04/23/2017 1:21 PM EDT 04/23/2017 1:27 PM EDT Narrative Resulting Agency Comment Spec In Lab Lissa Persaud APRN HEMATOLOGY ORDERABL ES Performing Organization Address [facility] Co de Phone Number [facility] [place] [address] * Phosphorus (04/23/2017 1:21 PM EDT) Pathologist [facility] Phosphorus 3.1 2.5 - 4.5 mg/dL [facility] Blood specimen (specimen) 04/23/2017 1:21 PM EDT 04/23/2017 1:27 PM EDT Narrative Resulting Agency Comment Spec In Lab Mikey Mendosa MD CHEMISTRY ORDERABLES Performing Organization Address [facility]/ZIP Co de Phone Number [facility] [place] [address] * Magnesium (04/23/2017 1:21 PM EDT) Magnesium 0.87 0.69 - 1.07 mmol/L [facility] Blood specimen (specimen) 04/23/2017 1:21 PM EDT 04/23/2017 1:27 PM EDT Narrative Resulting Agency Comment Spec In Lab Mikey Mendosa MD CHEMISTRY ORDERABLES [facility] [place] [address] * (ABNORMAL) Basic Metabolic Panel (non-fasting) (04/23/2017 1:21 PM EDT) Glucose 127 65 - 199 mg/dL [facility] Comment:Diabetes: >=200 mg/d L plus symptoms Blood Urea Nitrogen 27(H) 10 - 20 mg/dL [facility] Creatinine 1.41 0.80 - 1.50 mg/dL [facility] Comment: Please note that the pediatric reference intervals supplied above were not validated [place] [facility] Results from pediatric patients should be interpreted in conjunction to the patient's age, height and muscle mass. Sodium 137 135 - 145 mmol/L [facility] Potassium 3.5 3.5 - 5.0 mmol/L [facility] Comment: Please note: ??Patients with WBC >100,000 may have falsely elevated Potassium levels. ??For accurate Potassium quantification in these patients send serum separator tube (gold top) for subsequent determinations. ??Contact the Clinical Chemistry Laboratory if there are any questions. Chloride 93(L) 98 - 107 mmol/L [facility] Carbon Dioxide 27 22 - 31 mmol/L [facility] Anion Gap 17(H) 5 - 15 mmol/L [facility] Calcium 9.0 8.5 - 10.5 mg/dL [facility] Est Glomerular Filtration Rate 48(L) >=60 [facility] Comment: This estimated GFR (eGFR) [...] the following links into your internet browser. [email or web address] Blood specimen (specimen) 04/23/2017 1:21 PM EDT 04/23/2017 1:27 PM EDT Narrative Resulting Agency Comment Spec In Lab Mikey Mendosa MD CHEMISTRY ORDERABLES [facility] [place] [address] * (ABNORMAL) Differential, Automated (04/23/2017 7:10 AM EDT) Neutrophil % 74.1 % [facility] Neutrophil Absolute 6.74(H) 1.70 - 6.10 x10(3)/mc L [facility] Lymph % 10.2 % [facility] Lymphocytes Abs 0.9 0.9 - 3.2 x10(3)/mc L [facility] Monocyte % 8.7 % [facility] Monocyte Abs 0.8 0.3 - 0.9 x10(3)/mc L [facility] Eos % 4.7 % [facility] Eosinophils Abs 0.4 0.0 - 0.4 x10(3)/mc L [facility] Basophil % 0.4 % [facility] Baso Absolute 0.0 0.0 - 0.1 x10(3)/mc L [facility] Immature Gran % 1.90 % [facility] Comment: Immature granulocytes(IG's)percentage and absolute count will include metamyelocytes, myelocytes, and promyelocytes. Blood smears from CBCs yielding IG's will be scanned manually for concordance. If this scan disagrees with the automated IG or if promyelocytes are noted, a manual differential will be performed. Immature Gran Absolute 0.17(H) 0.00 - 0.04 x10(3)/ L [facility] Blood specimen (specimen) 04/23/2017 7:10 AM EDT 04/23/2017 7:16 AM EDT Narrative Resulting Agency Comment Spec In Lab Radha Mathew MD HEMATOLOGY ORDERABLE S [facility] [place] [address] * (ABNORMAL) Hemogram (04/23/2017 7:10 AM EDT) White Blood Cell 9.1 4.0 - 9.5 x10(3)/[facility] Red Blood Cell 3.12(L) 4.58 - 5.54 x10(6)/[facility] Hemoglobin 9.5(L) 13.7 - 16.5 gm/dL [facility] Hematocrit 29.2(L) 40.5 - 48.5 % [facility] Mean Cell Volume 93.6(H) 82.9 - 93.1 [facility] Mean Cell Hemoglobin 30.4 27.5 - 32.1 pg [facility] Mean Cell Hemoglobin Concentration 32.5 32.0 - 35.7 gm/dL [facility] Platelet 353 145 - 357 x10(3)/[facility] RDW Standard Deviation 44.7 36.0 - 45.0 [facility] RDW coefficient of variation 13.1 11.4 - 13.8 % [facility] Mean Platelet Volume 10.4 7.6 - 12.9 [facility] NRBC% auto 0.0 % [facility] NRBC Absolute 0.000 0.000 - 0.000 x10(3)/[facility] Blood specimen (specimen) 04/23/2017 7:10 AM EDT 04/23/2017 7:16 AM EDT Narrative Resulting Agency Comment Spec In Lab Radha Mathew MD HEMATOLOGY ORDERABLE S Performing Organization Address [facility] Co de Phone Number [facility] [place] [address] * (ABNORMAL) Prothrombin Time (04/23/2017 7:10 AM EDT) [facility] Prothrombin Time 18.5(H) 12.0 - 15.0 sec [facility] Comment: An INR <2.0 indicates adequate [...] International Normalization Ratio 1.5(H) 0.9 - 1.1 [facility] Blood specimen (specimen) 04/23/2017 7:10 AM EDT 04/23/2017 7:16 AM EDT Narrative Resulting Agency Comment Spec In Lab Mikey Mendosa MD HEMATOLOGY ORDERABLE S Performing Organization Address [facility] Co de Phone Number [facility] [place] [address] * (ABNORMAL) Basic Metabolic Panel (non-fasting) (04/23/2017 7:10 AM EDT) Pathologist [facility] Glucose 113 65 - 199 mg/dL [facility] Comment:Diabetes: >=200 mg/d L plus symptoms Blood Urea Nitrogen 25(H) 10 - 20 mg/dL [facility] Creatinine 1.18 0.80 - 1.50 mg/dL [facility] Comment: Please note that the pediatric reference intervals supplied above were not validated [place] [facility] Results from pediatric patients should be interpreted in conjunction to the patient's age, height and muscle mass. Sodium 136 135 - 145 mmol/L [facility] Potassium 3.3(L) 3.5 - 5.0 mmol/L [facility] Comment: Please note: ??Patients with WBC >100,000 may have falsely elevated Potassium levels. ??For accurate Potassium quantification in these patients send serum separator tube (gold top) for subsequent determinations. ??Contact the Clinical Chemistry Laboratory if there are any questions. Chloride 92(L) 98 - 107 mmol/L [facility] Carbon Dioxide 30 22 - 31 mmol/L [facility] Anion Gap 14 5 - 15 mmol/L [facility] Calcium 8.5 8.5 - 10.5 mg/dL [facility] Est Glomerular Filtration Rate 59(L) >=60 [facility] Comment: This estimated GFR (eGFR) [...] the following links into your internet browser. [email or web address] Blood specimen (specimen) 04/23/2017 7:10 AM EDT 04/23/2017 7:16 AM EDT Narrative Resulting Agency Comment Spec In Lab Radha Mathew MD CHEMISTRY ORDERABLES Performing Organization Address City/State/[facility] Co de Phone Number [facility] [place] [address] * (ABNORMAL) Potassium (04/22/2017 6:02 PM EDT) Potassium 3.0(Criti boni) 3.5 - 5.0 mmol/L [facility] Comment: Called by: CATIE, Read back [...] In Lab Radha Mathew MD CHEMISTRY ORDERABLES [facility] [place] [address] * (ABNORMAL) Differential, Automated (04/22/2017 3:57 AM EDT) Neutrophil % 72.4 % [facility] Neutrophil Absolute 7.22(H) 1.70 - 6.10 x10(3)/[facility] Lymph % 11.0 % [facility] Lymphocytes Abs 1.1 0.9 - 3.2 x10(3)/[facility] Monocyte % 9.8 % [facility] Monocyte Abs 1.0(H) 0.3 - 0.9 x10(3)/ L [facility] Eos % 5.1 % [facility] Eosinophils Abs 0.5(H) 0.0 - 0.4 x10(3)/[facility] Basophil % 0.5 % [facility] Baso Absolute 0.0 0.0 - 0.1 x10(3)/[facility] Immature Gran % 1.20 % [facility] Comment: Immature granulocytes(IG's)percentage and absolute count will include metamyelocytes, myelocytes, and promyelocytes. Blood smears from CBCs yielding IG's will be scanned manually for concordance. If this scan disagrees with the automated IG or if promyelocytes are noted, a manual differential will be performed. Immature Gran Absolute 0.12(H) 0.00 - 0.04 x10(3)/ L [facility] Blood specimen (specimen) 04/22/2017 3:57 AM EDT 04/22/2017 4:18 AM EDT Narrative Resulting Agency Comment Spec In Lab Radha Mathew MD HEMATOLOGY ORDERABLE S [facility] [place] [address] * (ABNORMAL) Hemogram (04/22/2017 3:57 AM EDT) White Blood Cell 10.0(H) 4.0 - 9.5 x10(3)/ L [facility] Red Blood Cell 3.00(L) 4.58 - 5.54 x10(6)/ L [facility] Hemoglobin 9.3(L) 13.7 - 16.5 gm/dL [facility] Hematocrit 27.9(L) 40.5 - 48.5 % [facility] Mean Cell Volume 93.0 82.9 - 93.1 [facility] Mean Cell Hemoglobin 31.0 27.5 - 32.1 pg [facility] Mean Cell Hemoglobin Concentration 33.3 32.0 - 35.7 gm/dL [facility] Platelet 331 145 - 357 x10(3)/[facility] RDW Standard Deviation 46.0(H) 36.0 - 45.0 [facility] RDW coefficient of variation 13.4 11.4 - 13.8 % [facility] Mean Platelet Volume 10.3 7.6 - 12.9 [facility] NRBC% auto 0.0 % [facility] NRBC Absolute 0.000 0.000 - 0.000 x10(3)/[facility] Blood specimen (specimen) 04/22/2017 3:57 AM EDT 04/22/2017 4:18 AM EDT Narrative Resulting Agency Comment Spec In Lab Radha Mathew MD HEMATOLOGY ORDERABLE S [facility] [place] [address] * (ABNORMAL) Prothrombin Time (04/22/2017 3:57 AM EDT) Prothrombin Time 18.4(H) 12.0 - 15.0 sec [facility] Comment: An INR <2.0 indicates adequate [...] International Normalization Ratio 1.5(H) 0.9 - 1.1 [facility] Blood specimen (specimen) 04/22/2017 3:57 AM EDT 04/22/2017 4:18 AM EDT Narrative Resulting Agency Comment Spec In Lab Mikey Mendosa MD HEMATOLOGY ORDERABLE S [facility] [place] [address] * (ABNORMAL) Basic Metabolic Panel (non-fasting) (04/22/2017 3:57 AM EDT) Pathologist [facility] Glucose 125 65 - 199 mg/dL [facility] Comment:Diabetes: >=200 mg/d L plus symptoms Blood Urea Nitrogen 31(H) 10 - 20 mg/dL [facility] Creatinine 1.39 0.80 - 1.50 mg/dL [facility] Comment: Please note that the pediatric reference intervals supplied above were not validated at [facility] Results from pediatric patients should be interpreted in conjunction to the patient's age, height and muscle mass. Sodium 141 135 - 145 mmol/L [facility] Potassium 3.0(Criti boni) 3.5 - 5.0 mmol/L [facility] Comment: Results rechecked. Called by: [facility], Read back by: Ron Richardson, Date/Time:04/22/17 05:02. Please note: ??Patients with WBC >100,000 may have falsely elevated Potassium levels. ??For accurate Potassium quantification in these patients send serum separator tube (gold top) for subsequent determinations. ??Contact the Clinical Chemistry Laboratory if there are any questions. Chloride 92(L) 98 - 107 mmol/L [facility] Carbon Dioxide 32(H) 22 - 31 mmol/L [facility] Anion Gap 17(H) 5 - 15 mmol/L [facility] Calcium 8.4(L) 8.5 - 10.5 mg/dL [facility] Est Glomerular Filtration Rate 49(L) >=60 [facility] Comment: This estimated GFR (eGFR) value [...] the following links into your internet browser. [email or web address] Blood specimen (specimen) 04/22/2017 3:57 AM EDT 04/22/2017 4:18 AM EDT Narrative Resulting Agency Comment Spec In Lab Radha Mathew MD CHEMISTRY ORDERABLES [facility] [place] [address] * APTT (04/21/2017 6:16 AM EDT) [facility] Partial Thromboplastin Time 34 25 - 35 sec [facility] Comment: The recommended therapeutic range for full dose, unfractionated heparin at [facility] is 80 ? 114 seconds. The use of the anti-Xa (heparin) level rather than the PTT is recommended for monitoring anticoagulation intensity in critically ill patients receiving unfractionated heparin by continuous IV infusion. Blood specimen (specimen) 04/21/2017 6:16 AM EDT 04/21/2017 6:55 AM EDT Narrative Resulting Agency Comment Spec In Lab Mikey Mendosa MD HEMATOLOGY ORDERABLE S Performing Organization Address [facility] Co de Phone Number [facility] [place] [address] * (ABNORMAL) Prothrombin Time (04/21/2017 6:16 AM EDT) Prothrombin Time 18.6(H) 12.0 - 15.0 sec [facility] Comment: An INR <2.0 indicates adequate [...] International Normalization Ratio 1.5(H) 0.9 - 1.1 [facility] Blood specimen (specimen) 04/21/2017 6:16 AM EDT 04/21/2017 6:55 AM EDT Narrative Resulting Agency Comment Spec In Lab Mikey Mendosa MD HEMATOLOGY ORDERABLE S Performing Organization Address [facility] de Phone Number [facility] [place] [address] * Phosphorus (04/21/2017 3:55 AM EDT) Phosphorus 3.0 2.5 - 4.5 mg/dL [facility] Blood specimen (specimen) 04/21/2017 3:55 AM EDT 04/21/2017 6:56 AM EDT Narrative Resulting Agency Comment Spec In Lab Mikey Mendosa MD CHEMISTRY ORDERABLES Performing Organization Address [facility] Co de Phone Number [facility] [place] [address] * (ABNORMAL) Magnesium (04/21/2017 3:55 AM EDT) Magnesium 1.12(H) 0.69 - 1.07 mmol/L [facility] Blood specimen (specimen) 04/21/2017 3:55 AM EDT 04/21/2017 6:56 AM EDT Narrative Resulting Agency Comment Spec In Lab Mikey Mendosa MD CHEMISTRY ORDERABLES [facility] [place] [address] * (ABNORMAL) Differential, Automated (04/21/2017 3:55 AM EDT) Pathologist [facility] Neutrophil % 72.4 % [facility] Neutrophil Absolute 6.78(H) 1.70 - 6.10 x10(3)/ L [facility] Lymph % 10.5 % [facility] Lymphocytes Abs 1.0 0.9 - 3.2 x10(3)/[facility] Monocyte % 10.4 % [facility] Monocyte Abs 1.0(H) 0.3 - 0.9 x10(3)/ L [facility] Eos % 5.4 % [facility] Eosinophils Abs 0.5(H) 0.0 - 0.4 x10(3)/ L [facility] Basophil % 0.4 % [facility] Baso Absolute 0.0 0.0 - 0.1 x10(3)/ L [facility] Immature Gran % 0.90 % [facility] Comment: Immature granulocytes(IG's)percentage and absolute count will include metamyelocytes, myelocytes, and promyelocytes. Blood smears from CBCs yielding IG's will be scanned manually for concordance. If this scan disagrees with the automated IG or if promyelocytes are noted, a manual differential will be performed. Immature Gran Absolute 0.08(H) 0.00 - 0.04 x10(3)/ L [facility] Blood specimen (specimen) 04/21/2017 3:55 AM EDT 04/21/2017 4:05 AM EDT Narrative Resulting Agency Comment Spec In Lab Radha Mathew MD HEMATOLOGY ORDERABLE S [facility] [place] [address] * (ABNORMAL) Hemogram (04/21/2017 3:55 AM EDT) White Blood Cell 9.4 4.0 - 9.5 x10(3)/mc L [facility] Red Blood Cell 2.83(L) 4.58 - 5.54 x10(6)/mc L [facility] Hemoglobin 8.8(L) 13.7 - 16.5 gm/dL [facility] Hematocrit 26.4(L) 40.5 - 48.5 % [facility] Mean Cell Volume 93.3(H) 82.9 - 93.1 [facility] Mean Cell Hemoglobin 31.1 27.5 - 32.1 pg [facility] Mean Cell Hemoglobin Concentration 33.3 32.0 - 35.7 gm/dL [facility] Platelet 306 145 - 357 x10(3)/mc L [facility] RDW Standard Deviation 45.7(H) 36.0 - 45.0 [facility] RDW coefficient of variation 13.6 11.4 - 13.8 % [facility] Mean Platelet Volume 10.4 7.6 - 12.9 [facility] NRBC% auto 0.0 % [facility] NRBC Absolute 0.000 0.000 - 0.000 x10(3)/ L [facility] Blood specimen (specimen) 04/21/2017 3:55 AM EDT 04/21/2017 4:05 AM EDT Narrative Resulting Agency Comment Spec In Lab Radha Mathew MD HEMATOLOGY ORDERABLE S [facility] [place] [address] * (ABNORMAL) Basic Metabolic Panel (non-fasting) (04/21/2017 3:55 AM EDT) Glucose 151 65 - 199 mg/dL [facility] Comment:Diabetes: >=200 mg/d L plus symptoms Blood Urea Nitrogen 31(H) 10 - 20 mg/dL [facility] Creatinine 1.33 0.80 - 1.50 mg/dL [facility] Comment: Please note that the pediatric reference intervals supplied above were not validated at [facility]. Results from pediatric patients should be interpreted in conjunction to the patient's age, height and muscle mass. Sodium 138 135 - 145 mmol/L [facility] Potassium 3.4(L) 3.5 - 5.0 mmol/L [facility] Comment: Please note: ??Patients with WBC >100,000 may have falsely elevated Potassium levels. ??For accurate Potassium quantification in these patients send serum separator tube (gold top) for subsequent determinations. ??Contact the Clinical Chemistry Laboratory if there are any questions. Chloride 95(L) 98 - 107 mmol/L [facility] Carbon Dioxide 31 22 - 31 mmol/L [facility] Anion Gap 12 5 - 15 mmol/L [facility] Calcium 8.5 8.5 - 10.5 mg/dL [facility] Est Glomerular Filtration Rate 52(L) >=60 [facility] Comment: This estimated GFR (eGFR) [...] the following links into your internet browser. [email or web address] Blood specimen (specimen) 04/21/2017 3:55 AM EDT 04/21/2017 4:05 AM EDT Narrative Resulting Agency Comment Spec In Lab Radha Mathew MD CHEMISTRY ORDERABLES [facility] [place] [address] * (ABNORMAL) Differential, Automated (04/20/2017 3:52 AM EDT) Neutrophil % 76.3 % [facility] Neutrophil Absolute 7.45(H) 1.70 - 6.10 x10(3)/ L [facility] Lymph % 8.6 % [facility] Lymphocytes Abs 0.8(L) 0.9 - 3.2 x10(3)/ L [facility] Monocyte % 10.3 % [facility] Monocyte Abs 1.0(H) 0.3 - 0.9 x10(3)/ L [facility] Eos % 3.9 % [facility] Eosinophils Abs 0.4 0.0 - 0.4 x10(3)/[facility]ORY Basophil % 0.3 % [facility] Baso Absolute 0.0 0.0 - 0.1 x10(3)/ L [facility] Immature Gran % 0.60 % [facility] Comment: Immature granulocytes(IG's)percentage and absolute count will include metamyelocytes, myelocytes, and promyelocytes. Blood smears from CBCs yielding IG's will be scanned manually for concordance. If this scan disagrees with the automated IG or if promyelocytes are noted, a manual differential will be performed. Immature Gran Absolute 0.06(H) 0.00 - 0.04 x10(3)/ L [facility] Blood specimen (specimen) 04/20/2017 3:52 AM EDT 04/20/2017 4:07 AM EDT Narrative Resulting Agency Comment Spec In Lab Radha Mathew MD HEMATOLOGY ORDERABLE S [facility] [place] [address] * (ABNORMAL) Hemogram (04/20/2017 3:52 AM EDT) White Blood Cell 9.8(H) 4.0 - 9.5 x10(3)/mc L [facility] Red Blood Cell 2.73(L) 4.58 - 5.54 x10(6)/mc L [facility] Hemoglobin 8.5(L) 13.7 - 16.5 gm/dL [facility] Hematocrit 25.8(L) 40.5 - 48.5 % [facility] Mean Cell Volume 94.5(H) 82.9 - 93.1 fL [facility] Mean Cell Hemoglobin 31.1 27.5 - 32.1 pg [facility] Mean Cell Hemoglobin Concentration 32.9 32.0 - 35.7 gm/dL [facility] Platelet 249 145 - 357 x10(3)/mc L [facility] RDW Standard Deviation 46.3(H) 36.0 - 45.0 [facility] RDW coefficient of variation 13.4 11.4 - 13.8 % [facility] Mean Platelet Volume 10.2 7.6 - 12.9 fL [facility] NRBC% auto 0.0 % [facility] NRBC Absolute 0.000 0.000 - 0.000 x10(3)/mc L [facility] Blood specimen (specimen) 04/20/2017 3:52 AM EDT 04/20/2017 4:07 AM EDT Narrative Resulting Agency Comment Spec In Lab Radha Mathew MD HEMATOLOGY ORDERABLE S [facility] [place] [address] * (ABNORMAL) Basic Metabolic Panel (non-fasting) (04/20/2017 3:52 AM EDT) Glucose 125 65 - 199 mg/dL [facility] Comment:Diabetes: >=200 mg/d L plus symptoms Blood Urea Nitrogen 30(H) 10 - 20 mg/dL [facility] Creatinine 1.22 0.80 - 1.50 mg/dL [facility] Comment: Please note that the pediatric reference intervals supplied above were not validated at [facility]. Results from pediatric patients should be interpreted in conjunction to the patient's age, height and muscle mass. Sodium 141 135 - 145 mmol/L [facility] Potassium 3.6 3.5 - 5.0 mmol/L [facility] Comment: Please note: ??Patients with WBC >100,000 may have falsely elevated Potassium levels. ??For accurate Potassium quantification in these patients send serum separator tube (gold top) for subsequent determinations. ??Contact the Clinical Chemistry Laboratory if there are any questions. Chloride 95(L) 98 - 107 mmol/L [facility] Carbon Dioxide 34(H) 22 - 31 mmol/L [facility] Anion Gap 12 5 - 15 mmol/L [facility] Calcium 8.7 8.5 - 10.5 mg/dL [facility] Est Glomerular Filtration Rate 57(L) >=60 [facility] Comment: This estimated GFR (eGFR) [...] the following links into your internet browser. [email or web address] Blood specimen (specimen) 04/20/2017 3:52 AM EDT 04/20/2017 4:07 AM EDT Narrative Resulting Agency Comment Spec In Lab Radha Mathew MD CHEMISTRY ORDERABLES Performing Organization Address City/[facility]/[place] [address] * (ABNORMAL) Differential, Automated (04/19/2017 4:30 AM EDT) Neutrophil % 72.6 % [facility] Neutrophil Absolute 6.43(H) 1.70 - 6.10 x10(3)/mc L [facility] Lymph % 10.5 % [facility] Lymphocytes Abs 0.9 0.9 - 3.2 x10(3)/[facility] LABORATORY Monocyte % 12.7 % [facility] Monocyte Abs 1.1(H) 0.3 - 0.9 x10(3)/[facility] Eos % 3.1 % [facility] Eosinophils Abs 0.3 0.0 - 0.4 x10(3)/[facility] Basophil % 0.6 % [facility] Baso Absolute 0.0 0.0 - 0.1 x10(3)/[facility] Immature Gran % 0.50 % [facility] Comment: Immature granulocytes(IG's)percentage and absolute count will include metamyelocytes, myelocytes, and promyelocytes. Blood smears from CBCs yielding IG's will be scanned manually for concordance. If this scan disagrees with the automated IG or if promyelocytes are noted, a manual differential will be performed. Immature Gran Absolute 0.04 0.00 - 0.04 x10(3)/ L [facility] Blood specimen (specimen) 04/19/2017 4:30 AM EDT 04/19/2017 4:45 AM EDT Narrative Resulting Agency Comment Spec In Lab Radha Mathew MD HEMATOLOGY ORDERABLE S Performing Organization Address City/[facility]/ZIP Co de Phone Number Counts [facility] [address] [place] [address] * (ABNORMAL) Hemogram (04/19/2017 4:30 AM EDT) [facility] White Blood Cell 8.8 4.0 - 9.5 x10(3)/[facility] Red Blood Cell 2.77(L) 4.58 - 5.54 x10(6)/[facility] Hemoglobin 8.6(L) 13.7 - 16.5 gm/dL [facility] Hematocrit 25.6(L) 40.5 - 48.5 % [facility] Mean Cell Volume 92.4 82.9 - 93.1 fL [facility] Mean Cell Hemoglobin 31.0 27.5 - 32.1 pg [facility] Mean Cell Hemoglobin Concentration 33.6 32.0 - 35.7 gm/dL [facility] Platelet 250 145 - 357 x10(3)/[facility] LAB[facility]ATORY RDW Standard Deviation 45.9(H) 36.0 - 45.0 [facility] LABORATORY RDW coefficient of variation 13.4 11.4 - 13.8 % [facility] Mean Platelet Volume 10.7 7.6 - 12.9 [facility] LABORATORY NRBC% auto 0.0 % [facility] NRBC Absolute 0.000 0.000 - 0.000 x10(3)/[facility] Blood specimen (specimen) 04/19/2017 4:30 AM EDT 04/19/2017 4:45 AM EDT Narrative Resulting Agency Comment Spec In Lab Radha Mathew MD HEMATOLOGY ORDERABLE S [facility] [place] [address] * (ABNORMAL) Basic Metabolic Panel (non-fasting) (04/19/2017 4:30 AM EDT) [facility] Glucose 136 65 - 199 mg/dL [facility] Comment:Diabetes: >=200 mg/d L plus symptoms Blood Urea Nitrogen 35(H) 10 - 20 mg/dL [facility] Creatinine 1.34 0.80 - 1.50 mg/dL [facility] Comment: Please note that the pediatric reference intervals supplied above were not validated at [facility]. Results from pediatric patients should be interpreted in conjunction to the patient's age, height and muscle mass. Sodium 139 135 - 145 mmol/L [facility] Potassium 3.3(L) 3.5 - 5.0 mmol/L [facility] Comment: Please note: ??Patients with WBC >100,000 may have falsely elevated Potassium levels. ??For accurate Potassium quantification in these patients send serum separator tube (gold top) for subsequent determinations. ??Contact the Clinical Chemistry Laboratory if there are any questions. Chloride 93(L) 98 - 107 mmol/L [facility] Carbon Dioxide 35(H) 22 - 31 mmol/L [facility] Anion Gap 11 5 - 15 mmol/L [facility] Calcium 8.0(L) 8.5 - 10.5 mg/dL [facility] Est Glomerular Filtration Rate 51(L) >=60 [facility] Comment: This estimated GFR (eGFR) [...] the following links into your internet browser. [email or web address] Blood specimen (specimen) 04/19/2017 4:30 AM EDT 04/19/2017 4:45 AM EDT Narrative Resulting Agency Comment Spec In Lab Radha Mathew MD CHEMISTRY ORDERABLES [facility] [place] [address] * Cerebrovascular Duplex, Bilateral (04/18/2017 3:06 PM EDT) VB Text Report Department: Vascular Surgery Lab Patient: [id number] (DARIO LI) CPT: 48840 ICD10: [id number];V87.7XXA Referring Physician: RADHA MATHEW ?? [...] PM EDT Radha Mathew MD VASCULAR ORDERABLES VASCUBASE * Duplex Study for DVT, Bilat legs (04/18/2017 2:17 PM EDT) VB Text Report Department: Vascular Surgery Lab Patient: [id number] (DARIO LI) CPT: 63605 ICD10: S32.411A Referring Physician: LISSA PERSAUD ?? [...] VASCUBASE 04/18/2017 2:17 PM EDT Lissa Persaud APRN VASCULAR ORDERABLES VASCUBASE * MRI Total Spine [...] fracture. Multilevel degenerative changes. Radha Mathew MD [facility] MRI ORDERABLES * (ABNORMAL) Differential, Automated (04/18/2017 4:15 AM EDT) Neutrophil % 78.3 % [facility] Neutrophil Absolute 7.32(H) 1.70 - 6.10 x10(3)/[facility] LABORATORY Lymph % 7.8 % [facility] Lymphocytes Abs 0.7(L) 0.9 - 3.2 x10(3)/[facility] LAB[facility]ATORY Monocyte % 13.2 % [facility] Monocyte Abs 1.2(H) 0.3 - 0.9 x10(3)/[facility] LAB[facility]ATORY Eos % 0.1 % [facility] Eosinophils Abs 0.0 0.0 - 0.4 x10(3)/[facility] LAB[facility]ATORY Basophil % 0.2 % [facility] Baso Absolute 0.0 0.0 - 0.1 x10(3)/[facility] LABORATORY Immature Gran % 0.40 % [facility] Comment: Immature granulocytes(IG's)percentage and absolute count will include metamyelocytes, myelocytes, and promyelocytes. Blood smears from CBCs yielding IG's will be scanned manually for concordance. If this scan disagrees with the automated IG or if promyelocytes are noted, a manual differential will be performed. Immature Gran Absolute 0.04 0.00 - 0.04 x10(3)/[facility] LAB[facility] Blood specimen (specimen) 04/18/2017 4:15 AM EDT 04/18/2017 4:25 AM EDT Narrative Resulting Agency Comment Spec In Lab Radha Mathew MD HEMATOLOGY ORDERABLE S [facility] [place] [address] * (ABNORMAL) Hemogram (04/18/2017 4:15 AM EDT) White Blood Cell 9.4 4.0 - 9.5 x10(3)/[facility] Red Blood Cell 3.21(L) 4.58 - 5.54 x10(6)/[facility] Hemoglobin 9.9(L) 13.7 - 16.5 gm/dL [facility] Comment: This result has been called to YARELI MATSON by CALEB ROBERTS on 04 18 2017 at 0450, and has been read back. Hematocrit 29.6(L) 40.5 - 48.5 % [facility] Mean Cell Volume 92.2 82.9 - 93.1 fL [facility] Mean Cell Hemoglobin 30.8 27.5 - 32.1 pg [facility] Mean Cell Hemoglobin Concentration 33.4 32.0 - 35.7 gm/dL [facility] Platelet 279 145 - 357 x10(3)/ L [facility] RDW Standard Deviation 44.9 36.0 - 45.0 [facility] LABORATORY RDW coefficient of variation 13.3 11.4 - 13.8 % [facility] Mean Platelet Volume 10.8 7.6 - 12.9 [facility] LABORATORY NRBC% auto 0.0 % [facility] NRBC Absolute 0.000 0.000 - 0.000 x10(3)/[facility] Blood specimen (specimen) 04/18/2017 4:15 AM EDT 04/18/2017 4:25 AM EDT Narrative Resulting Agency Comment Spec In Lab Radha Mathew MD HEMATOLOGY ORDERABLE S [facility] [place] [address] * (ABNORMAL) Basic Metabolic Panel (non-fasting) (04/18/2017 4:15 AM EDT) Glucose 150 65 - 199 mg/dL [facility] Comment:Diabetes: >=200 mg/d L plus symptoms Blood Urea Nitrogen 32(H) 10 - 20 mg/dL [facility] Creatinine 1.50 0.80 - 1.50 mg/dL [facility] Comment: Please note that the pediatric reference intervals supplied above were not validated at [facility]. Results from pediatric patients should be interpreted in conjunction to the patient's age, height and muscle mass. Sodium 142 135 - 145 mmol/L [facility] Potassium 3.8 3.5 - 5.0 mmol/L [facility] Comment: Please note: ??Patients with WBC >100,000 may have falsely elevated Potassium levels. ??For accurate Potassium quantification in these patients send serum separator tube (gold top) for subsequent determinations. ??Contact the Clinical Chemistry Laboratory if there are any questions. Chloride 96(L) 98 - 107 mmol/L [facility] Carbon Dioxide 34(H) 22 - 31 mmol/L [facility] Anion Gap 12 5 - 15 mmol/L [facility] Calcium 8.5 8.5 - 10.5 mg/dL [facility] Est Glomerular Filtration Rate 45(L) >=60 [facility] Comment: This estimated GFR (eGFR) [...] the following links into your internet browser. [email or web address] Blood specimen (specimen) 04/18/2017 4:15 AM EDT 04/18/2017 4:25 AM EDT Narrative Resulting Agency Comment Spec In Lab Radha Mathew MD CHEMISTRY ORDERABLES [facility] [place] [address] * XR Pelvis Judet or In Out [...] hip arthroplasty without complication. Radha Mathew MD [facility] DX ORDERABLES * XR Fluoro No Rad <1Hr - OR Use (04/17/2017 1:57 PM EDT) Narrative ERIC - 04/17/2017 1:58 PM EDT This order does not need a radiologist interpretation. ?? Radha VIVEROS FLUORO ORDERABLE S [place], [place] * (ABNORMAL) BLOOD GAS 2 ARTERIAL (04/17/2017 11:39 AM EDT) pH, Arterial 7.46(H) 7.35 - 7.45 [facility] PCO2, Arterial 48(H) 35 - 45 mmHg [facility] PO2, Arterial 158(H) 85 - 104 mmHg [facility] Bicarbonate, Arterial 33.2(H) 20.0 - 26.0 mmol/L [facility] Base Excess, Arterial 9.4(H) -3.0 - 3.0 mmol/L [facility] Hgb Blood Gas 11.2(L) 13.7 - 16.5 gm/dL [facility] Oxyhemoglobin, Arterial 97.7(H) 94.0 - 97.0 % [facility] Carboxyhemoglob in, Arterial 1.0 % [facility] Comment: Nonsmokers: 0.5-1.5% COHB Smokers: Variable, but usually less than 10% Toxic: 20-30% COHB Lethal: Greater than 60% COHB Methemoglobin, Arterial 0.3 <=1.5 % [facility] Na Whole Blood 135 135 - 145 mmol/L [facility] K Whole Blood 3.3(L) 3.5 - 5.0 mmol/L [facility] Comment: Please note: Patients with WBC >100,000 may have falsely elevated Potassium levels. Contact the Clinical Chemistry Laboratory if there are any questions. ICa Whole Blood 1.08(L) 1.15 - 1.33 mmol/L [facility] Comment: Note: ??Total bilirubin higher than 20 mg/dL may lead to falsely low ionized calcium. CL Whole Blood 97(L) 98 - 107 mmol/L [facility] Gluc Whole Bld 145 65 - 199 mg/dL [facility] Comment:Diabetes: >=200 mg/d L plus symptoms. Lactate WB 1.5 0.5 - 2.2 mmol/L [facility] Blood specimen (specimen) 04/17/2017 11:39 AM EDT 04/17/2017 11:39 AM EDT Radha Mathew MD POINT OF CARE TEST O RDERABLES [facility] [place] [address] * (ABNORMAL) BLOOD GAS 2 ARTERIAL (04/17/2017 9:59 AM EDT) pH, Arterial 7.47(H) 7.35 - 7.45 [facility] PCO2, Arterial 44 35 - 45 mmHg [facility] PO2, Arterial 112(H) 85 - 104 mmHg [facility] Bicarbonate, Arterial 31.5(H) 20.0 - 26.0 mmol/L [facility] Base Excess, Arterial 7.9(H) -3.0 - 3.0 mmol/L [facility] Hgb Blood Gas 11.4(L) 13.7 - 16.5 gm/dL [facility] Oxyhemoglobin, Arterial 96.4 94.0 - 97.0 % [facility] Carboxyhemoglob in, Arterial 1.8 % [facility] Comment: Nonsmokers: 0.5-1.5% COHB Smokers: Variable, but usually less than 10% Toxic: 20-30% COHB Lethal: Greater than 60% COHB Methemoglobin, Arterial 0.3 <=1.5 % [facility] Na Whole Blood 135 135 - 145 mmol/L [facility] K Whole Blood 3.2(L) 3.5 - 5.0 mmol/L [facility] Comment: Please note: Patients with WBC >100,000 may have falsely elevated Potassium levels. Contact the Clinical Chemistry Laboratory if there are any questions. ICa Whole Blood 1.11(L) 1.15 - 1.33 mmol/L [facility] Comment: Note: ??Total bilirubin higher than 20 mg/dL may lead to falsely low ionized calcium. CL Whole Blood 96(L) 98 - 107 mmol/L [facility] Gluc Whole Bld 137 65 - 199 mg/dL [facility] Comment:Diabetes: >=200 mg/d L plus symptoms. Lactate WB 1.5 0.5 - 2.2 mmol/L [facility] Blood specimen (specimen) 04/17/2017 9:59 AM EDT 04/17/2017 9:59 AM EDT Rahda Mathew MD POINT OF CARE TEST O RDERABLES [facility] [place] [address] * (ABNORMAL) BLOOD GAS 2 ARTERIAL (04/17/2017 8:46 AM EDT) pH, Arterial 7.45 7.35 - 7.45 [facility] PCO2, Arterial 49(H) 35 - 45 mmHg [facility] PO2, Arterial 138(H) 85 - 104 mmHg [facility] Bicarbonate, Arterial 33.0(H) 20.0 - 26.0 mmol/L [facility] Base Excess, Arterial 9.0(H) -3.0 - 3.0 mmol/L [facility] Hgb Blood Gas 11.9(L) 13.7 - 16.5 gm/dL [facility] Oxyhemoglobin, Arterial 97.4(H) 94.0 - 97.0 % [facility] Carboxyhemoglob in, Arterial 1.4 % [facility] Comment: Nonsmokers: 0.5-1.5% COHB Smokers: Variable, but usually less than 10% Toxic: 20-30% COHB Lethal: Greater than 60% COHB Methemoglobin, Arterial 0.0 <=1.5 % [facility] Na Whole Blood 136 135 - 145 mmol/L [facility] K Whole Blood 3.2(L) 3.5 - 5.0 mmol/L [facility] Comment: Please note: Patients with WBC >100,000 may have falsely elevated Potassium levels. Contact the Clinical Chemistry Laboratory if there are any questions. ICa Whole Blood 1.12(L) 1.15 - 1.33 mmol/L [facility] Comment: Note: ??Total bilirubin higher than 20 mg/dL may lead to falsely low ionized calcium. CL Whole Blood 95(L) 98 - 107 mmol/L [facility] Gluc Whole Bld 124 65 - 199 mg/dL [facility] Comment:Diabetes: >=200 mg/d L plus symptoms. Lactate WB 1.4 0.5 - 2.2 mmol/L [facility] Blood specimen (specimen) 04/17/2017 8:46 AM EDT 04/17/2017 8:46 AM EDT Radha Mathew MD POINT OF CARE TEST O RDERABLES [facility] [place] [address] * ABORH Recheck Status (04/17/2017 6:42 AM EDT) ABORH Type Recheck Completed [facility] Blood specimen (specimen) 04/17/2017 6:42 AM EDT 04/17/2017 6:50 AM EDT Narrative Resulting Agency Comment Spec In Lab Radha Mathew MD BLOOD BANK LAB ORDER EDWIN Performing Organization Address City/[facility]/ZIP Co de Phone Number [facility] [place] [address] * Antibody screen (04/17/2017 6:42 AM EDT) Ab Screen Interp Negative [facility] Expires at [id number] on: 04/20/2017 [facility] Blood specimen (specimen) 04/17/2017 6:42 AM EDT 04/17/2017 6:50 AM EDT Narrative Resulting Agency Comment Spec In Lab Radha Mathew MD BLOOD BANK LAB ORDER EDWIN Performing Organization Address City/[facility]/ZIP Co de Phone Number [facility] [place] [address] * ABO/Rh Typing (04/17/2017 6:42 AM EDT) ABORH Type O Pos [facility] Blood specimen (specimen) 04/17/2017 6:42 AM EDT 04/17/2017 6:50 AM EDT Narrative Resulting Agency Comment Spec In Lab Radha Mathew MD BLOOD BANK LAB ORDER EDWIN [facility] [place] [address] * (ABNORMAL) Differential, Automated (04/17/2017 4:42 AM EDT) Neutrophil % 75.0 % [facility] Neutrophil Absolute 6.48(H) 1.70 - 6.10 x10(3)/mc L [facility] Lymph % 7.5 % [facility] Lymphocytes Abs 0.6(L) 0.9 - 3.2 x10(3)/ L [facility] Monocyte % 13.0 % [facility] Monocyte Abs 1.1(H) 0.3 - 0.9 x10(3)/mc L [facility] Eos % 3.5 % [facility] Eosinophils Abs 0.3 0.0 - 0.4 x10(3)/ L [facility] Basophil % 0.5 % [facility] Baso Absolute 0.0 0.0 - 0.1 x10(3)/mc L [facility] Immature Gran % 0.50 % [facility] Comment: Immature granulocytes(IG's)percentage and absolute count will include metamyelocytes, myelocytes, and promyelocytes. Blood smears from CBCs yielding IG's will be scanned manually for concordance. If this scan disagrees with the automated IG or if promyelocytes are noted, a manual differential will be performed. Immature Gran Absolute 0.04 0.00 - 0.04 x10(3)/mc L [facility] Blood specimen (specimen) 04/17/2017 4:42 AM EDT 04/17/2017 4:59 AM EDT Narrative Resulting Agency Comment Spec In Lab Andrey Kimlbe MD HEMATOLOGY ORDERABLE S [facility] [place] [address] * (ABNORMAL) Hemogram (04/17/2017 4:42 AM EDT) White Blood Cell 8.6 4.0 - 9.5 x10(3)/mc L [facility] Red Blood Cell 3.81(L) 4.58 - 5.54 x10(6)/mc L [facility] Hemoglobin 11.9(L) 13.7 - 16.5 gm/dL [facility] Hematocrit 35.0(L) 40.5 - 48.5 % [facility] Mean Cell Volume 91.9 82.9 - 93.1 fL [facility] Mean Cell Hemoglobin 31.2 27.5 - 32.1 pg [facility] Mean Cell Hemoglobin Concentration 34.0 32.0 - 35.7 gm/dL [facility] Platelet 236 145 - 357 x10(3)/mc L [facility] RDW Standard Deviation 45.3(H) 36.0 - 45.0 [facility] RDW coefficient of variation 13.4 11.4 - 13.8 % [facility] Mean Platelet Volume 10.6 7.6 - 12.9 [facility] NRBC% auto 0.0 % [facility] NRBC Absolute 0.000 0.000 - 0.000 x10(3)/mc L [facility] Blood specimen (specimen) 04/17/2017 4:42 AM EDT 04/17/2017 4:59 AM EDT Narrative Resulting Agency Comment Spec In Lab Andrey Kimble MD HEMATOLOGY ORDERABLE S [facility] [place] [address] * (ABNORMAL) Basic Metabolic Panel (non-fasting) (04/17/2017 4:42 AM EDT) Glucose 115 65 - 199 mg/dL [facility] Comment:Diabetes: >=200 mg/d L plus symptoms Blood Urea Nitrogen 23(H) 10 - 20 mg/dL [facility] Creatinine 1.29 0.80 - 1.50 mg/dL [facility] Comment: Please note that the pediatric reference intervals supplied above were not validated at [facility]. Results from pediatric patients should be interpreted in conjunction to the patient's age, height and muscle mass. Sodium 140 135 - 145 mmol/L [facility] Potassium 3.3(L) 3.5 - 5.0 mmol/L [facility] Comment: Please note: ??Patients with WBC >100,000 may have falsely elevated Potassium levels. ??For accurate Potassium quantification in these patients send serum separator tube (gold top) for subsequent determinations. ??Contact the Clinical Chemistry Laboratory if there are any questions. Chloride 94(L) 98 - 107 mmol/L [facility] Carbon Dioxide 36(H) 22 - 31 mmol/L [facility] Anion Gap 10 5 - 15 mmol/L [facility] Calcium 9.0 8.5 - 10.5 mg/dL [facility] Est Glomerular Filtration Rate 54(L) >=60 [facility] Comment: This estimated GFR (eGFR) [...] the following links into your internet browser. [email or web address] Blood specimen (specimen) 04/17/2017 4:42 AM EDT 04/17/2017 4:59 AM EDT Narrative Resulting Agency Comment Spec In Lab Radha Mathew MD CHEMISTRY ORDERABLES [facility] [place] [address] * (ABNORMAL) Basic Metabolic Panel (non-fasting) (04/16/2017 7:48 PM EDT) Glucose 121 65 - 199 mg/dL [facility] Comment:Diabetes: >=200 mg/d L plus symptoms Blood Urea Nitrogen 20 10 - 20 mg/dL [facility] Creatinine 1.29 0.80 - 1.50 mg/dL [facility] Comment: Please note that the pediatric reference intervals supplied above were not validated at [facility]. Results from pediatric patients should be interpreted in conjunction to the patient's age, height and muscle mass. Sodium 141 135 - 145 mmol/L [facility] Potassium 3.8 3.5 - 5.0 mmol/L [facility] Comment: Please note: ??Patients with WBC >100,000 may have falsely elevated Potassium levels. ??For accurate Potassium quantification in these patients send serum separator tube (gold top) for subsequent determinations. ??Contact the Clinical Chemistry Laboratory if there are any questions. Chloride 94(L) 98 - 107 mmol/L [facility] Carbon Dioxide 37(H) 22 - 31 mmol/L [facility] Anion Gap 10 5 - 15 mmol/L [facility] Calcium 9.2 8.5 - 10.5 mg/dL [facility] Est Glomerular Filtration Rate 54(L) >=60 [facility] Comment: This estimated GFR (eGFR) [...] the following links into your internet browser. [email or web address] Blood specimen (specimen) 04/16/2017 7:48 PM EDT 04/16/2017 7:53 PM EDT Narrative Resulting Agency Comment Spec In Lab Radha Mathew MD CHEMISTRY ORDERABLES [facility] [place] [address] * XR Hip AP & Lat Left [...] comparison. IMPRESSION As above. Radha Mathew MD IMG DX ORDERABLES * XR Abdomen 1 view [...] series with upright views. Radha Mathew MD IMG DX ORDERABLES * Magnesium (04/16/2017 4:12 AM EDT) Pathologist [facility] Magnesium 0.96 0.69 - 1.07 mmol/L [facility] Blood specimen (specimen) Venous Draw / Unknown 04/16/2017 4:12 AM EDT 04/16/2017 4:26 AM EDT Narrative Resulting Agency Comment Spec In Lab Radha Mathew MD CHEMISTRY ORDERABLES [facility] [place] [address] * (ABNORMAL) Differential, Automated (04/16/2017 4:12 AM EDT) Neutrophil % 81.3 % [facility] Neutrophil Absolute 8.77(H) 1.70 - 6.10 x10(3)/mc L [facility] Lymph % 6.0 % [facility] Lymphocytes Abs 0.6(L) 0.9 - 3.2 x10(3)/mc L [facility] Monocyte % 10.6 % [facility] Monocyte Abs 1.1(H) 0.3 - 0.9 x10(3)/mc L [facility] Eos % 1.2 % [facility] Eosinophils Abs 0.1 0.0 - 0.4 x10(3)/[facility] Basophil % 0.4 % [facility] Baso Absolute 0.0 0.0 - 0.1 x10(3)/[facility] Immature Gran % 0.50 % [facility] Comment: Immature granulocytes(IG's)percentage and absolute count will include metamyelocytes, myelocytes, and promyelocytes. Blood smears from CBCs yielding IG's will be scanned manually for concordance. If this scan disagrees with the automated IG or if promyelocytes are noted, a manual differential will be performed. Immature Gran Absolute 0.05(H) 0.00 - 0.04 x10(3)/[facility] Blood specimen (specimen) 04/16/2017 4:12 AM EDT 04/16/2017 4:24 AM EDT Narrative Resulting Agency Comment Spec In Lab Andrey Kimble MD HEMATOLOGY ORDERABLE S [facility] [place] [address] * (ABNORMAL) Hemogram (04/16/2017 4:12 AM EDT) White Blood Cell 10.8(H) 4.0 - 9.5 x10(3)/[facility] Red Blood Cell 3.90(L) 4.58 - 5.54 x10(6)/ L [facility] Hemoglobin 12.2(L) 13.7 - 16.5 gm/dL [facility] Hematocrit 35.6(L) 40.5 - 48.5 % [facility] Mean Cell Volume 91.3 82.9 - 93.1 fL [facility] Mean Cell Hemoglobin 31.3 27.5 - 32.1 pg [facility] Mean Cell Hemoglobin Concentration 34.3 32.0 - 35.7 gm/dL [facility] Platelet 220 145 - 357 x10(3)/mc L [facility] RDW Standard Deviation 44.0 36.0 - 45.0 fL [facility] RDW coefficient of variation 13.2 11.4 - 13.8 % [facility] Mean Platelet Volume 10.7 7.6 - 12.9 fL [facility] NRBC% auto 0.0 % [facility] NRBC Absolute 0.000 0.000 - 0.000 x10(3)/mc L [facility] Blood specimen (specimen) 04/16/2017 4:12 AM EDT 04/16/2017 4:24 AM EDT Narrative Resulting Agency Comment Spec In Lab Andrey Kimble MD HEMATOLOGY ORDERABLE S Performing Organization Address City/State/[facility] Co de Phone Number [facility] [place] [address] * (ABNORMAL) Basic Metabolic Panel (non-fasting) (04/16/2017 4:12 AM EDT) Glucose 122 65 - 199 mg/dL [facility] Comment:Diabetes: >=200 mg/d L plus symptoms Blood Urea Nitrogen 20 10 - 20 mg/dL [facility] Creatinine 1.18 0.80 - 1.50 mg/dL [facility] Comment: Please note that the pediatric reference intervals supplied above were not validated at [facility]. Results from pediatric patients should be interpreted in conjunction to the patient's age, height and muscle mass. Sodium 141 135 - 145 mmol/L [facility] Potassium 3.2(L) 3.5 - 5.0 mmol/L [facility] Comment: rechecked RG Please note: ??Patients with WBC >100,000 may have falsely elevated Potassium levels. ??For accurate Potassium quantification in these patients send serum separator tube (gold top) for subsequent determinations. ??Contact the Clinical Chemistry Laboratory if there are any questions. Chloride 95(L) 98 - 107 mmol/L [facility] Carbon Dioxide 35(H) 22 - 31 mmol/L [facility] Anion Gap 11 5 - 15 mmol/L [facility] Calcium 8.8 8.5 - 10.5 mg/dL [facility] Est Glomerular Filtration Rate 59(L) >=60 [facility] Comment: This estimated GFR (eGFR) [...] the following links into your internet browser. [email or web address] Blood specimen (specimen) 04/16/2017 4:12 AM EDT 04/16/2017 4:24 AM EDT Narrative Resulting Agency Comment Spec In Lab Radha Mathew MD CHEMISTRY ORDERABLES Performing Organization Address City/[facility] Co de Phone Number [facility] [place] [address] * (ABNORMAL) APTT (04/16/2017 4:12 AM EDT) [facility] Partial Thromboplastin Time 40(H) 25 - 35 sec [facility] Comment: The recommended therapeutic range for full dose, unfractionated heparin at [facility] is 80 ? 114 seconds. The use of the anti-Xa (heparin) level rather than the PTT is recommended for monitoring anticoagulation intensity in critically ill patients receiving unfractionated heparin by continuous IV infusion. Blood specimen (specimen) 04/16/2017 4:12 AM EDT 04/16/2017 4:24 AM EDT Narrative Resulting Agency Comment Spec In Lab Alexy Vincent MD HEMATOLOGY ORDERABLE S [facility] [place] [address] * (ABNORMAL) Prothrombin Time (04/16/2017 4:12 AM EDT) Prothrombin Time 22.2(H) 12.0 - 15.0 sec [facility] Comment: An INR <2.0 indicates adequate [...] International Normalization Ratio 1.8(H) 0.9 - 1.1 [facility] Blood specimen (specimen) 04/16/2017 4:12 AM EDT 04/16/2017 4:24 AM EDT Narrative Resulting Agency Comment Spec In Lab Radha Mathew MD HEMATOLOGY ORDERABLE S Performing Organization Address [facility] Co de Phone Number [facility] [place] [address] * (ABNORMAL) Potassium (04/15/2017 6:59 PM EDT) [facility] Potassium 3.0(Criti boni) 3.5 - 5.0 mmol/L [facility] Comment: Called by: CATIE, Read back [...] Mathew MD CHEMISTRY ORDERABLES Performing Organization Address City/[facility]/ZIP Co de Phone Number [facility] [place] [address] * (ABNORMAL) Basic Metabolic Panel (non-fasting) (04/15/2017 12:08 PM EDT) Glucose 137 65 - 199 mg/dL [facility] Comment:Diabetes: >=200 mg/d L plus symptoms Blood Urea Nitrogen 19 10 - 20 mg/dL [facility] Creatinine 1.34 0.80 - 1.50 mg/dL [facility] Comment: Please note that the pediatric reference intervals supplied above were not validated at [facility]. Results from pediatric patients should be interpreted in conjunction to the patient's age, height and muscle mass. Sodium 140 135 - 145 mmol/L [facility] Potassium 3.1(L) 3.5 - 5.0 mmol/L [facility] Comment: Please note: ??Patients with WBC >100,000 may have falsely elevated Potassium levels. ??For accurate Potassium quantification in these patients send serum separator tube (gold top) for subsequent determinations.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 elevated Potassium levels. ??For accurate Potassium quantification in these patients send serum separator tube (gold top) for subsequent determinations. ??Contact the Clinical Chemistry Laboratory if there are any questions. Chloride 96(L) 98 - 107 mmol/L [facility] Carbon Dioxide 29 22 - 31 mmol/L [facility] Anion Gap 14 5 - 15 mmol/L [facility] Calcium 8.9 8.5 - 10.5 mg/dL [facility] Est Glomerular Filtration Rate 50(L) >=60 [facility] Comment: This estimated GFR (eGFR) value [...] the following links into your internet browser. [email or web address] Blood specimen (specimen) 04/13/2017 5:30 PM EDT 04/13/2017 5:39 PM EDT Narrative Resulting Agency Comment Spec In Lab Andrey Kimble MD CHEMISTRY ORDERABLES [facility] [place] [address] * JANAY Screen w/o Confirmation (04/13/2017 5:28 PM EDT) Barbiturates Screen, Urine None Detected None Detected [facility] Comment: The barbiturate screen detects barbiturates [...] Benzodiazepines Screen, Urine None Detected None Detected [facility] Comment: The benzodiazepines screen detects benzodiazepines [...] Cocaine Screen, Urine None Detected None Detected [facility] Comment: The cocaine metabolites screen detects benzoylecgonine (Cocaine Metabolite) at concentrations >150 ng/mL. A ? Presumptive Positive? result indicates that the screening result was positive but has not yet been confirmed by a highly-specific method. As with any screen, occasional false positive results from cross-reacting substances may occur. Not for Medico-Legal Purposes. Methadone Metabolites Screen, Urine None Detected None Detected [facility] Comment: The methadone metabolite screen detects EDDP (major methadone metabolite) at concentrations >100 ng/mL. A ? Presumptive Positive? result indicates that the screening result was positive but has not yet been confirmed by a highly-specific method. As with any screen, occasional false positive results from cross-reacting substances may occur. Not for Medico-Legal Purposes. Opiate Screen, Urine None Detected None Detected [facility] Comment: The opiates screen detects opiates [...] Cannabinoid Screen, Urine None Detected None Detected [facility] Comment: The marijuana metabolites screen detects the THC metabolite (91-qpj-7-carboxy-delta 9-THC) at concentrations >20 ng/mL. A ? Presumptive Positive? result indicates that the screening result was positive but has not yet been confirmed by a highly-specific method. As with any screen, occasional false positive results from cross-reacting substances may occur. Not for Medico-Legal Purposes. Oxycodone Screen, Urine None Detected None Detected [facility] Comment: The oxycodone screen detects oxycodone and oxymorphone at concentrations >100 ng/mL. A ? Presumptive Positive? result indicates that the screening result was positive but has not yet been confirmed by a highly-specific method. As with any screen, occasional false positive results from cross-reacting substances may occur. Not for Medico-Legal Purposes. Buprenorphine Screen, Urine None Detected None Detected [facility] Comment: The buprenorphine screen detects buprenorphine at concentrations >5 ng/mL. A ? Presumptive Positive? result indicates that the screening result was positive but has not yet been confirmed by a highly-specific method. As with any screen, occasional false positive results from cross-reacting substances may occur. Not for Medico-Legal Purposes. Fentanyl Screen, Urine None Detected None Detected [facility] Comment: The fentanyl screen detects fentanyl at concentrations >2 ng/mL. A ? Presumptive Positive? result indicates that the screening result was positive but has not yet been confirmed by a highly-specific method. As with any screen, occasional false positive results from cross-reacting substances may occur. Not for Medico-Legal Purposes. Tricyclics Screen, Urine None Detected None Detected [facility] Comment: The tricyclics screen detects tricyclic [...] Ethanol Screen, Urine None Detected None Detected [facility] Comment:This urine ethanol a ssay detects ethanol at concentrations >/= 100 mg/L. Amphetamines Screen, Urine None Detected None Detected [facility] Comment: The amphetamine screen detects d-amphetamine and d-methamphetamine at concentrations >300 ng/mL. A ? Presumptive Positive? result indicates that the screening result was positive but has not yet been confirmed by a highly-specific method. As with any screen, occasional false positive results from cross-reacting substances may occur. Not for Medico-Legal Purposes. Adulterants Screen, Urine None Detected None Detected [facility] Comment: No adulteration or dilution of this urine sample was detected. All urine samples submitted for urine drugs of abuse analysis are tested for creatinine concentration, pH, and for the presence of oxidants, nitrites, and chromate. Urine specimen (specimen) 04/13/2017 5:28 PM EDT 04/13/2017 5:48 PM EDT Narrative Resulting Agency Comment Spec In Lab Andrey Kimble MD CHEMISTRY ORDERABLES Performing Organization Address [facility] Co de Phone Number [facility] [place] [address] * JANAY Request (04/13/2017 5:28 PM EDT) JANAY Conf Requested No [facility] JANAY Requested See Comment [facility] Comment:Refer to the JANAY Scr een w/o Confirmation order for results. Urine specimen (specimen) 04/13/2017 5:28 PM EDT 04/13/2017 5:48 PM EDT Andrey Kimble MD URINE ORDERABLES Performing Organization Address [facility] Co de Phone Number [facility] [place] [address] * Film Library- Storage Only CT Spine (04/13/2017 12:30 AM EDT) Narrative ERIC - 04/13/2017 4:34 PM EDT This exam is for storage only and is auto-finalizing. Alexy Vincent MD IMG FILM LIBRARY ORD ERABLES Performing Organization Address [facility] Co de Phone Number [place], [place] documented in this encounter Visit Diagnoses Not on filedocumented in this encounter Admitting Diagnoses Diagnosis Right [...] Given 04/23/2017 9:10 PM EDT 650 mg bacitracin injection ONCE PRN, Starting on Mon04/17/17 at 0848, Until Mon04/24/17 at 1825, Intra-Operative (Intra-Procedure), Routine Given 04/17/2017 8:48 AM EDT 50,000 Units 19- Surgical Site bisacodyl (DULCOLAX) suppository 10 mg 10 mg, [...] Given 04/22/2017 8:52 AM EDT 2 mg BUpivacaine-EPINEPHrine 0.25 %-1:200,000 injection ONCE PRN, Starting on Mon04/17/17 at 0846, Until Mon04/24/17 at 1825, Intra-Operative (Intra-Procedure), Routine Given 04/17/2017 8:46 AM EDT 50 mLs 19- Surgical Site cloNIDine injection ONCE PRN, Starting on Mon04/17/17 at 0847, Until Mon04/24/17 at 1825, Intra-Operative (Intra-Procedure), Routine Given 04/17/2017 8:47 AM EDT 50 mcg 19- Surgical Site DILTiazem (DILTIAZEM CD) ER capsule 120 mg [...] Given 04/21/2017 9:47 PM EDT 40 mg ketorolac (TORADOL) injection ONCE PRN, Starting on Mon04/17/17 at 0847, Until Mon04/24/17 at 1825, Intra-Operative (Intra-Procedure), Routine Given 04/17/2017 8:47 AM EDT 30 mg 19- Surgical Site metOLazone (ZAROXOLYN) tablet 2.5 mg 2.5 mg, Oral, DAILY, First dose on Mon04/14/17 at 0900, Until Discontinued, Routine Given 04/24/2017 8:23 AM EDT 2.5 mg Given 04/23/2017 9:07 AM EDT 2.5 mg Given 04/22/2017 8:52 AM EDT 2.5 mg ondansetron (ZOFRAN) injection 4 mg 4 mg, Intravenous, EVERY 8 HOURS PRN, Starting on Mon04/15/17 at 1553, Until Mon04/24/17 at 1825, Nausea Given 04/16/2017 12:49 AM EDT 4 mg oxyCODONE (ROXICODONE) immediate release tablet 5 mg 5 mg, Oral, EVERY 4 HOURS PRN, Starting on Mon04/24/17 at 0639, Until Mon04/24/17 at 1825, Pain, Routine polyethylene glycol (MIRALAX) packet 17 g 17 g, Oral, DAILY, First dose on Mon04/17/17 at 1830, Until Discontinued, Routine Given 04/24/2017 8:23 AM EDT 17 g Given 04/23/2017 9:06 AM EDT 17 g Given 04/22/2017 8:51 AM EDT 17 g senna-docusate (PERICOLACE) 8.6-50 mg per tablet 1 tablet 1 tablet, Oral, 2 TIMES DAILY, First dose on Mon04/17/17 at 2100, Until Discontinued, Routine Given 04/24/2017 [...] Given 04/23/2017 9:13 AM EDT 5 mLs sulfamethoxazole-trimethoprim (BACTRIM DS) 800-160 mg per tablet [...] is held or discontinued. warfarin (COUMADIN) tablet 7.5 mg 7.5 mg, [...] exceed 4,000 mg in 24 hours, Routine 0257 (Given - Provider: Lanny Foote RN)0852 (Given - Provider: Laith Hooker, RN)1324 (Given - Provider: Laith Hooker, RN)1952 (Given - Provider: Lanny Foote RN) 0108 (Given - Provider: Lanny Foote RN)0900 (Given - Provider: Josie Lantigua, IMTIAZ)1435 (Given - Provider: Josie Lantigua, IMTIAZ)2110 (Given - Provider: Lanny Foote RN) 0200 (Not Given - Provider: Lanny Foote RN [...] 0852 (Given - Provider: Laith Hooker RN) 09 (Given - Provider: Josie Lantigua RN) 08 (Given - Provider: Rika Gunn RN) DILTiazem (DILTIAZEM CD) ER capsule 120 mg 120 mg, Oral, DAILY, First dose on Mon04/14/17 at 0900, Until Discontinued, DO NOT CRUSH OR OPEN, Routine 0856 (Given - Provider: Laith Hooker RN - Comment: HR 89) 09 (Given - Provider: Josie Lantigua RN) 08 (Given - Provider: Rika Gunn RN) enoxaparin (LOVENOX) injection 40 mg 40 mg, Subcutaneous, NIGHTLY, First dose on Mon04/18/17 at 2100, Until Discontinued, Routine 2123 (Given - Provider: Lanny Foote RN) 2109 (Given - Provider: Lanny Foote RN) magnesium oxide (MAG-OX) tablet 400 mg (COMPLETED) 400 mg, Oral, 2 TIMES DAILY, 1 dose, First dose on Mon04/24/17 at 0900, Routine 08 (Given - Provider: Rika Gunn RN) metOLazone (ZAROXOLYN) tablet 2.5 mg 2.5 mg, Oral, DAILY, First dose on Mon04/14/17 at 0900, Until Discontinued, Routine 0852 (Given - Provider: Laith Hooker RN) 09 (Given - Provider: Josie Lantigua RN) 0823 (Given - Provider: Rika Gunn RN) polyethylene glycol (MIRALAX) packet 17 g 17 g, Oral, DAILY, First dose on Mon04/17/17 at 1830, Until Discontinued, Routine 0851 (Given - Provider: Laith Hooker RN) 0906 (Given - Provider: Josie Lantigua RN) 0823 [...] Medication 0534 (New Bag - Provider: Lanny Foote RN)0652 (New Bag - Provider: Lanny Foote RN)0851 (New Bag - Provider: Laith Hooker RN)1108 (New Bag - Provider: Laith Hooker RN)1324 (New Bag - Provider: Laith Hooker RN - Comment: K+ 3)1523 (New Bag - Provider: Laith Hooker RN) potassium chloride 10 mEq in 100 mL (COMPLETED) 10 mEq, Intravenous, EVERY 2 HOURS, 6 doses, First dose on Mon04/22/17 at 1945, Last dose on Mon04/23/17 at [...] (New Bag - Provider: Lanny Foote RN) 0107 (New Bag - Provider: Lanny Foote RN)0335 (New Bag - Provider: Lanny Foote RN)0553 (New Bag - Provider: Lanny Foote RN) senna-docusate (PERICOLACE) 8.6-50 mg per tablet 1 tablet 1 tablet, Oral, 2 TIMES DAILY, First dose on Mon04/17/17 at 2100, Until Discontinued, Routine 0852 (Given - Provider: Laith Hooker RN)2123 (Given - Provider: Lanny Foote RN) 905 (Given - Provider: Josie Lantigua, IMTIAZ)2109 (Given - Provider: Lanny Foote RN) 08 (Given - Provider: Rika Gunn RN) sodium chloride 0.9 % flush 5 mL 5 mL, Intravenous, 2 TIMES DAILY, First dose on Helen 04/13/17 at 2341, Until Discontinued, Recovery (Recovery-Hospital Unit), Routine 0900 (Not Given - Provider: Laith Hooker RN - Reason: See comment - Comment: IV infusing)1954 (Given - Provider: Lanny Foote RN) 912 (Given - Provider: Josie Lantigua, IMTIAZ)2110 (Given - Provider: Lanny Foote RN) 08 (Given - Provider: Rika Gunn RN) sulfamethoxazole-trimetho prim (BACTRIM DS) 800-160 mg per tablet 1 tablet 1 tablet, Oral, EVERY 12 HOURS SCHEDULED (2 times per day), 14 doses, First dose on Mon04/24/17 at 1400, Last dose on Mon04/30/17 at 2100, Routine, Indication for (Active or Suspected): Urinary Tract/Pyelonephritis 1433 (Given - Provider: Rika Gunn, IMTIAZ) warfarin (COUMADIN) daily order reminder Oral, EVERY [...] 5 mg, Oral, ONCE, 1 dose, On 04/23/17 at 1700, Routine 1725 (Given - [...] minutes once if pain not relieved., Routine 0911 (Given - Provider: Ros Lantigua RN)1725 (See Alternative - Provider: Josie Lantigua RN) oxyCODONE (ROXICODONE) immediate release tablet 5 mg (CANCELED) 5 mg, Oral, EVERY 4 HOURS PRN, Starting on 04/14/17 at 0606, Until Mon04/24/17 at 0639, Pain, mild to moderate pain (1-6), May give an additional 5 mg in 30 minutes once if pain not relieved., Routine 0911 (See Alternative - Provider: Josie Lantigua RN)1725 (Given - Provider: Josie Lantigua RN) oxyCODONE [...] Routine documented in this encounter Care Teams Buckle Stapler Relationship Specialty Start Date End Date Xander Kearns DO [address] [place] [address] [address] [facility] [address] [place] [address] PCP - General 08/17/10 documented as of this encounter
--- OUTSIDE RECORDS SUMMARY | 2024-10-09 15:18 | XMS_ITS | Encounter Summary ---
Author Organization [facility] Address [facility] [place] [address] Care Team Providers Care Clam Bed Laborer Name Role Phone Xander Kearns DO Primary Care Provider [phone] Encounter Details Date Type Department Care Team (Late st Contact Info) Description 04/14/2017 Orders [place] [id number] Corey De Santiago MD [facility] [address] [place] [address] Social History Tobacco Use Types Packs/Day Years Used Date Smoking Tobacco: Former Smokeless Tobacco: Former Alcohol Use Standard Drinks/Week Comments Yes 0 (1 standard drink = 0.6 oz pur e alcohol) Sex and Gender Information Value Date Recorded Sex Assigned at Not on file Gender Identity Not on file Sexual Orientation Not on file documented as of this encounter Plan of Treatment Scheduled Orders Name Type Priority Associated Diagnoses Orde r Schedule ORIF ACETABULAR FX. Procedures Routine One T farhan for 1 Occurrences starting 04/14/2017 until 04/14/2017 documented as of this encounter Visit Diagnoses Not on filedocumented in this encounter Care Teams Clam Bed Laborer Relationship Specialty Start Date End Date Xander Kearns DO [address] [place] [address] PCP - General 08/17/10 documented as of this encounter
--- OUTSIDE RECORDS SUMMARY | 2024-10-09 15:18 | XMS_ITS | Encounter Summary ---
Author Organization [facility] Address [facility] [place] [address] Care Team Providers Care Sock Turner Name Role Phone Xander Kearns DO Primary Care Provider Encounter Details Date Type Department Care Team (Latest Contact Info) Description 04/13/2017 12:15 AM EDT - 04/13/2017 12:29 AM EDT Hospital Encounter Radiology Library at [facility] [place] [id number] Alexy Hua MD Pain Discharge Disposition: Home Social History Tobacco Use [...] Diagnosis Comments FILM LIBRARY STORAGE ONLY CT CHEST ABDOMEN PELVIS Routine 04/13/2017 12:15 AM EDT Pain documented in this encounter Results * Film Library- Storage Only CT Chest Abdomen Pelvis (04/13/2017 12:15 AM EDT) Narrative [facility] [place] - 04/13/2017 3:51 PM EDT This exam is for storage only and is auto-finalizing. Alexy Hua MD IMG FILM LIBRARY ORD ERABLES [place], [place] documented in this encounter Visit Diagnoses Diagnosis Pain Generalized pain documented in this encounter Care Teams Sock Turner Relationship Specialty Start Date End Date Xander eKarns DO [address] [place] [address] [address] [place] [address] PCP - General 08/17/10 documented as of this encounter
--- OUTSIDE RECORDS SUMMARY | 2024-10-09 15:18 | XMS_ITS | Encounter Summary ---
Author Organization [facility] Address [address] [place] [address] Care Team Providers Care Docking Pilot Name Role Phone Kimberlee Leroy MD Primary Care Provider Unavail able Encounter Details Date Type Department Care Team (Late st Contact Info) Description 02/21/2021 Lab Requisition [facility] Pathology & Laboratory Medicine - Main [place] [address] [place] [address] Tamiko Sullivan, EARLY CHILDHOOD ASSISTANT [address] [place], [place] [id number] Encounter for other general examination Social History Tobacco Use Types Packs/Day Years [...] Procedure Name Priority Date/Time Associated Diagnosis Comments NON SUBMERSIBLE PILOT/FNA CYTOLOGY Today 02/19/2021 10:50 EDT Encounter for other general examination documented in this encounter Results * NON SUBMERSIBLE PILOT/FNA CYTOLOGY (02/19/2021 10:50 EDT) Final Diagnosis URINE, VOIDED, CYTOLOGIC EVALUATION: - Negative for high grade urothelial carcinoma. - Benign and reactive urothelial cells present. - Background contains squamous cell contamination and abundant bacteria. 02/23/2021 12:50 EDT [facility] Attestation There was significant resident/fellow involvement in the diagnostic evaluation of this case. By the signature below, the attending physician certifies that they have personally conducted a gross and/or microscopic examination of the described specimens and rendered or confirmed the above diagnosis. 02/23/2021 12:50 T [facility] at 1249 Clinical History Hematuria 02/23/2021 12:50 EDT [facility] Gross Description A. 80ccs of clear yellow fluid, of which 40ccs are composed of fixative, were received and processed by selective cellular enhancement technique. 02/23/2021 12:50 EDT [facility] Resident/Andrey w: Mariela Leblanc MD 02/23/2021 12:50 T [facility] Performing Lab [facility] 02/23/2021 12:50 T [facility] Scanned Images 02/23/2021 12:50 T [facility] Urine VOIDED URINE SPECIMEN / Unknown 02/19/2021 10:50 EDT 02/21/2021 9:50 EDT us Tamiko Sullivan NP PATHOLOGY ORDERABLES Final Result [facility] [address] [place] [address] documented in this encounter Visit Diagnoses Diagnosis Encounter for other general examination documented in this encounter Care Teams Docking Pilot Relationship Specialty Start Date End Date Kimberlee Leroy MD PCP - General 07/19/12 documented as of this encounter
--- OUTSIDE RECORDS SUMMARY | 2024-10-09 15:18 | XMS_ITS | Encounter Summary ---
Author Organization [facility] Address [facility] [place] [address] Care Team Providers Care Glove Pairer Name Role Phone SomXander gonsales Primary Care Provider [phone] Encounter Details Date Type Department Care Team (Latest Contact Info) Description 04/13/2017 - 04/13/2017 12:14 AM EDT Hospital Encounter Radiology Library at [facility] [place] [id number] Alexy Hua MD Pain Discharge Disposition: Home [...] Diagnosis Comments FILM LIBRARY STORAGE ONLY CT HEAD AND SPINE Routine 04/13/2017 12:00 AM EDT Pain documented in this encounter Results * Film Library- Storage Only CT Head And Spine (04/13/2017 12:00 AM EDT) Narrative LAMONTE REYES - 04/13/2017 3:51 PM EDT This exam is for storage only and is auto-finalizing. Alexy Hua MD IMG FILM LIBRARY ORD ERABLES [place], [place] documented in this encounter Visit Diagnoses Diagnosis Pain Generalized pain documented in this encounter Care Teams Glove Pairer Relationship Specialty Start Date End Date Xander Kearns DO [address] [place] [address] PCP - General 08/17/10 documented as of this encounter
--- OUTSIDE RECORDS SUMMARY | 2024-10-09 15:19 | XMS_ITS | Encounter Summary ---
Author Organization [facility] Address [address] [place] [address] Care Team Providers Care Hub Inventory Specialist Name Role Phone Unavailable Primary Care Provider Unavailabl e Encounter Details Date Type Department Care Team (Late st Contact Info) Description 03/16/2005 Results Only [facility] - [place] [facility] [address] [place] [address] Dc Bueno MD [address] [place] [address] Social History Tobacco Use Types [...] Date/Time Associated Diagnosis Comments SURGICAL PATHOLOGY Routine 03/16/2005 0:00 EDT documented in this encounter Results * SURGICAL PATHOLOGY (03/16/2005 0:00 EDT) Pathology Report: SURGICAL PATHOLOGY REPORT Reports generated via electronic interface contain original data; however they are lacking the format of the original report. Caution should be taken when reading/interpreti ng unformatted reports. Name: ? DARIO STONE ? Accession #: ? [id number] ? : ? 1935 (Age: 69) ??M ? Collect Date: ? 03/16/2005 ? Location: ? [facility] ? Receive Date: ? 03/17/2005 ? Provider: DC BUENO MD Copy to: BALDEV STALLINGS DO ? Final Pathologic Diagnosis: ? Breast, left, mass, excisional biopsy: 1. ?Gynecomastia, Proliferative stage. ? 2. ?? Focal epithelial atypia. See comment. Comment: ? The features seen are consistent with gynecomastia. Many ducts exhibit epithelial hyperplasia and focally show atypical features (A6, one duct), composed of monotonous cells with occasional cribriform spaces. 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 Additional levels of block (A6) were examined. Dr. Keny Yi reviewed this case in consultation and concurs with the diagnosis. (Dr. Metcalf)/[facility] Document reviewed and electronically signed by: MANJIT METCALF MD Report ??Date: 03/21/2005 16:37 By the signature above, the attending physician certifies that he/she has personally conducted a gross and/or microscopic examination of the described specimens and rendered or confirmed the above diagnosis. Specimen(s) Received: ? Left breast mass Clinical History: ? Left breast mass Gross Description: ? Received in formalin labelled Langmaid and left breast mass is a roughly circular portion of fibrofatty tissue which is received without orientation and weighs 13.0 grams and measures 3.6 x 3.5 x 2.0 cm. ??There are also a couple of separately received, smaller fragments of lobulated adipose tissue which measure 1.2 x 1.1 x 0.5 cm in aggregate. ??The resection margin of the specimen is inked black. ??Serial sections reveal dense, white, fibrous tissue admixed with a small amount of light yellow adipose tissue. ??There are no discrete nodules palpable. ??The specimen is entirely submitted as (A1) to (A15) with cassettes (A1) and (A2) consisting of perpendicular sections of one end, (A13) and (A14) perpendicular sections of the opposite end, and (A15) separately received small fragments of adipose tissue, which are not inked. ??(Noe Canela)/[facility] End of Report [facility] 03/16/2005 03/17/2005 15: 27 EDT us Dc Bueno MD PATHOLOGY ORDERABLES Final Resul t [facility] [address] [place] [address] documented in this encounter Visit Diagnoses Not on filedocumented in this encounter
--- OUTSIDE RECORDS SUMMARY | 2024-10-09 15:19 | XMS_ITS | Encounter Summary ---
Author Organization [facility] Address [address] [place] [address] Care Team Providers Care Functional Support Analyst Name Role Phone Unavailable Primary Care Provider Unavailabl e Encounter Details Date Type Department Care Team (Late st Contact Info) Description 05/23/2005 Results Only [facility] - [place] [address] [place] [address] Dc Bueno MD [address] [place] [address] Social History Tobacco Use Types [...] Date/Time Associated Diagnosis Comments SURGICAL PATHOLOGY Routine 05/23/2005 0:00 EDT documented in this encounter Results * SURGICAL PATHOLOGY (05/23/2005 0:00 EDT) Pathology Report: SURGICAL PATHOLOGY REPORT Reports generated via electronic interface contain original data; however they are lacking the format of the original report. Caution should be taken when reading/interpreti ng unformatted reports. Name: ? DARIO STONE ? Accession #: ? [id number] ? : ? 1935 (Age: 69) ??M ? Collect Date: ? 05/23/2005 ? Location: ? [facility] ? Receive Date: ? 05/23/2005 ? Provider: DC BUENO MD Copy to: BALDEV STALLINGS DO ? Final Pathologic Diagnosis: A. ?Colon, cecum, polyp, biopsy: 1. ?Cauterized tubular adenoma. B. ?Colon, ascending, polyp, biopsy: 1. ?Cauterized tubular adenoma. C. ?Colon, transverse, polyp, biopsy: 1. ?Tubular adenoma. D. ?Colon, sigmoid, 45 cm, polyp, biopsy: 1. ?Cauterized tubular adenoma. E. ?Rectum, polyp, biopsy: 1. ?Tubulovillous adenoma. 2. ?Hyperplastic polyp. Document reviewed and electronically signed by: JOE ASHRAF MD Report ??Date: 05/25/2005 17:46 By the signature above, the attending physician certifies that he/she has personally conducted a gross and/or microscopic examination of the described specimens and rendered or confirmed the above diagnosis. Specimen(s) Received: A. ?Cecal polyp (#1) B. ? Ascending colon polyp (#2) C. ?Transverse colon polyp (#3) D. ?Sigmoid polyp @ 45 cm (#4) E. ?Rectal polyp (#5) Clinical History: ? Screening, polypectomy; rand diverticulosis Gross Description: ? Received in Hollande' s fixative labeled Langmaid and cecal polyp are three maldonado-pink soft tissues averaging 0.2 x 0.1 x 0.1 cm, submitted in toto as (A). Received in Hollande' s fixative labeled Langmaid and ? ascending colon polyp is a 0.2 x 0.1 x 0.1 cm maldonado-pink, polypoid soft tissue, submitted intact as (B). Received in Hollande' s fixative labeled Langmaid and transverse colon polyp are two maldonado-pink, polypoid soft tissues measuring 0.3 x 0.2 x 0.2 cm and 0.8 x 0.4 x 0.4 cm. ??Submitted in toto as (C). Received in Hollande' s fixative labeled Langmaid and sigmoid polyp at 45 cm are two maldonado-pink soft tissues averaging 0.2 x 0.2 x 0.1 cm, submitted in toto as (D). Received in Hollande' s fixative labeled Langmaid and rectal polyp is a 1.3 x 1.1 x 0.7 cm maldonado-pink polyp. ??Also received is a 0.3 x 0.3 x 0.2 cm maldonado-pink soft tissue. ??The polyp is trisected and entirely submitted as (E1) and (E2) and the smaller tissue is submitted intact as (E3). ??(Court Valle)/gladis ?? End of Report [facility] 05/23/2005 05/23/2005 15: 11 EDT us Dc Bueno MD PATHOLOGY ORDERABLES Final Resul t [facility] [address] [place] [address] documented in this encounter Visit Diagnoses Not on filedocumented in this encounter
--- OUTSIDE RECORDS SUMMARY | 2024-10-09 15:19 | XMS_ITS | Encounter Summary ---
Author Organization [facility] Address [address] [place] [address] Care Team Providers Care Quality Assurance Qa Lab Technician Name Role Phone Unavailable Primary Care Provider Unavailabl e Encounter Details Date Type Department Care Team (Late st Contact Info) Description 06/04/2007 Results Only [facility] - [place] [facility] [address] [place] [address] Dc Bueno MD [address] [place] [address] Social History Tobacco Use Types [...] Date/Time Associated Diagnosis Comments SURGICAL PATHOLOGY Routine 06/04/2007 0:00 EDT documented in this encounter Results * SURGICAL PATHOLOGY (06/04/2007 0:00 EDT) Pathology Report: SURGICAL PATHOLOGY REPORT Reports generated via electronic interface contain original data; however they are lacking the format of the original report. Caution should be taken when reading/interpreting unformatted reports. Name: ? DARIO STONE ? Accession #: ? [id number] ? : ? 1935 (Age: 71) ??M ? Collect Date: ? 06/04/2007 ? Location: ? [facility] ? Receive Date: ? 06/04/2007 ? Provider: DC BUENO MD Copy to: BALDEV BENITEZDERICK DO ? Final Pathologic Diagnosis: A. ?Polyp in duodenal bulb, biopsy: 1. ?Gastric type mucosa with chronic inflammation and intestinal metaplasia. ??See comment. B. ?Stomach, antrum, biopsy: 1. ?Gastric mucosa with no specific pathologic features. C. ?Stomach, body, biopsy: 1. ?Gastric mucosa with no specific pathologic features. D. ?Esophagus, 38.0 cm, biopsy: 1. ?Gastroesophageal junction with chronic inflammation and reactive gastric and squamous mucosa. ??See comment. 2. ? No intestinal metaplasia or dysplasia identified. E. ?Colon, ascending, polyp, polypectomy: 1. ?Tubular adenoma. 2. ? No high grade dysplasia identified. ? F. ?Colon, transverse, polyp, polypectomy: ? 1. ?? Tubular adenoma. ? 2. ?? No high grade dysplasia identified. G. ?? Colon, transverse, polyp distal, polypectomy: ? 1. ?? Tubular adenoma. ??See comment. ? 2. ?? Focal high grade dysplasia identified. H. ?? Rectum, polyp, polypectomy: ? 1. ?? Tubular adenoma ? 2. ?? Focal high grade dysplasia identified. Comment: ? Immunohistochemistry for H Pylori (polyclonal, [facility]) has been ordered on (A) and is negative. ??In addition PAS for fungus has been ordered on (D) and is negative. Specimens (G) and (H) contain high grade dysplasia. Specimens (G) and (H) have been shown at intradepartmental consultation conference. This case was discussed with Dr. Dc Bueno on 06/06/2007. ??(Dr. Guzman)/[facility] ? NOTE: ??One or more of the reagents used in immunohistochemical testing in this case may not have been cleared or approved by the U.S. Food and Drug Administration (FDA). ??The FDA has determined that such clearance or approval is not necessary. ??These tests are used for clinical purposes. ??They should not be regarded as investigational or for research. ??These reagents' ??performance characteristics have been determined by [facility]. ??This laboratory is certified under the Clinical Laboratory Improvement Amendments of 1988 (CLIA-88) as qualified to perform high complexity clinical laboratory testing. ?? Document reviewed and electronically signed by: MANJIT WILLIAM MD Report ??Date: 06/06/2007 16:34 By the signature above, the attending physician certifies that he/she has personally conducted a gross and/or microscopic examination of the described specimens and rendered or confirmed the above diagnosis. Specimen(s) Received: A. ?Polypoid bulb bx (#1) B. ? Gastric antrum (#2) C. ? Gastric body (#3) D. ? EG junction/38 cm (#4) E. ? Ascending colon polyp (#5) F. ? Transverse c. polyp (#6) G. ? Transverse c. polyp distal (#7) H. ? Rectal polyp (#8) Clinical History: ? D. ??? Rodas's; morning N/V; hx. polyps; adenomas - ascending Gross Description: ? Received in Hollande's fixative labelled Langmaid and polypoid bulb biopsy is a single portion of Hollande's stained maldonado mucosal tissue 0.2 x 0.1 x 0.1 cm, submitted in toto as (A). Received in Hollande's fixative labelled Langmaid and gastric antrum is a single portion of Hollande's stained mucosal tissue 0.1 x 0.1 x 0.1 cm, submitted in toto as (B). Received in Hollande's fixative labelled Langmaid and gastric body is a single portion of Hollande's stained maldonado mucosal tissue 0.2 x 0.1 x 0.1 cm, submitted in toto as (C). Received in Hollande's fixative labelled Langmaid and EG junction 38 cm Rodas's are two portions of Hollande's stained maldonado mucosal tissue each slightly less than 0.1 x 0.1 x 0.1 cm, submitted in toto as (D). Received in Hollande's fixative labelled Langmaid and ascending colon polyp are two portions of Hollande's stained maldonado mucosal tissue 0.2 x 0.2 x 0.1 cm and 0.8 x 0.3 x 0.3 cm. ??The tissue is submitted in toto as (E). Received in Hollande's fixative labelled Langmaid and polyp transverse colon are three portions of Hollande's stained maldonado mucosal tissue, two of which are less than 0.1 cm in greatest dimension and the third of which is 1.1 x 0.5 x 0.4 cm. The larger portion is bisected and submitted along with the smaller fragments as (F). ?? Received in Hollande's fixative labelled Langmaid and transverse colon polyp distal are two portions of Hollande's stained mucosal tissue, one of which is strip-like 1.2 x 0.2 x 0.2 cm and the other of which appears more polypoid, 1.0 x 0.6 x 0.5 cm. The polypoid fragment is bisected and submitted along with the second portion of tissue as (G). Received in Hollande's fixative labelled Langmaid and rectal polyp is a single polypoid portion of Hollande's stained maldonado mucosal tissue 0.5 x 0.2 x 0.3 cm, submitted in toto as (H). ??(Dr. Hummel)/[facility] End of Report [facility] 06/04/2007 06/04/2007 15: 23 EDT us Dc Bueno MD PATHOLOGY ORDERABLES Final Resul t Performing Organization Address City/State/[facility] Co de Phone Number [facility] [address] [place] [address] documented in this encounter Visit Diagnoses Not on filedocumented in this encounter
--- OUTSIDE RECORDS SUMMARY | 2024-10-09 15:19 | XMS_ITS | Encounter Summary ---
Author Organization [facility] Address [address] [place] [address] Care Team Providers Care Education Administrator Name Role Phone Unavailable Primary Care Provider Unavailabl e Encounter Details Date Type Department Care Team (Late st Contact Info) Description 08/27/2007 Results Only [facility] - [place] [facility] [address] [place] [address] Dc Bueno MD [address] [place] [address] Social History Tobacco Use Types [...] Date/Time Associated Diagnosis Comments SURGICAL PATHOLOGY Routine 08/27/2007 0:00 EST documented in this encounter Results * SURGICAL PATHOLOGY (08/27/2007 0:00 EST) Pathology Report: SURGICAL PATHOLOGY REPORT Reports generated via electronic interface contain original data; however they are lacking the format of the original report. Caution should be taken when reading/interpreting unformatted reports. Name: ? DARIO STONE ? Accession #: ? [id number] ? : ? 1935 (Age: 71) ??M ? Collect Date: ? 08/27/2007 ? Location: ? [facility] ? Receive Date: ? 08/28/2007 ? Provider: DC BUENO MD Copy to: ? Final Pathologic Diagnosis: A. ?Breast, left, mastectomy: 1. 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 ? - Area of involvement by ductal carcinoma in situ is approximately 5.0 mm (0.5 cm). - Ductal carcinoma in situ involves one block out of a total of fifteen blocks submitted for ??microscopic evaluation. - Surgical resection margins negative; ductal carcinoma in situ: ??- 7.0 mm from superior margin. ??- Greater than 1.0 cm from remaining margins. ?2. ?? Background of gynecomastia. ? 3. ?? Skin and nipple with no specific pathologic features. ? 4. ?? Rare foci of foreign body giant cells and old hemorrhage consistent with previous biopsy. B. ?? Skin of torso, left, excision: ?1. ?? Melanocytic nevus, junction type with unusual architectural features and mild-moderate ? cytologic atypia. Comment: ? Parking Enforcement Technician slides have been reviewed at intradepartmental consultation conference. Dr. Hinton has reviewed the skin biopsy and concurs with the impression. Estrogen and progesterone receptor stains have been ordered and will be reported separately. ?? /[facility] Document reviewed and electronically signed by: Azul Milner MD Report ??Date: 09/03/2007 12:32 By the signature above, the attending physician certifies that he/she has personally conducted a gross and/or microscopic examination of the described specimens and rendered or confirmed the above diagnosis. Specimen(s) Received: A. ?Left breast ??short suture superior, long suture lateral B. ? Nevus left torso Clinical History: ? Painful left gynecomastia (prior bx neg) and atypical appearing nevus left chest Gross Description: ? Received in formalin labelled Langmaid and #1 left breast is an ovoid piece of fibroadipose tissue that weighs 76 grams and measures 3.4 cm from superior to inferior, 8.0 cm from medial to lateral, and 5.7 cm from anterior to posterior. ??The specimen was received oriented as per the surgical requisition and it is inked as follows: anterior ??green (the rim of the skin around the nipple), posterior ??red, medial ??yellow, lateral ??orange, superior ??black, and inferior ??blue. ??The anterior portion of the specimen is the skin with nipple and areola. ??The nipple measures 0.8 x 0.7 x 0.5 cm and the areola measures 2.5 x 2.4 cm and is bosselated. ??Cut sections reveal fatty tissue with fibrous portions particularly in the anterior center portion of the tissue. ??There are no discrete nodules. ??The specimen is serially sectioned and insurance account representative sections are submitted as follows: BLOCK VERDUZCO A1 ?Nipple, bisected A2 ?Areola to nipple A3 ?Medial margin, perpendicular sections A4 ?Parking Enforcement Technician section with superior margin A5 ?Parking Enforcement Technician section with posterior margin A6 ?Parking Enforcement Technician section with inferior margin A7 ?Two insurance account representative sections of mostly fibrous tissue A8 ?Lateral margin, perpendicular sections A9 ?Additional section from superior region A10-A15 ? Additional sections of breast that contain fibrous tissue Received in formalin labelled Langmaid and #2 nevus left torso is an unoriented elliptical excision of skin which measures 2.4 x 0.9 cm and is excised to a depth of 1.1 cm. ??There is a central brown-black macule that measures 0.7 x 0.7 cm. ??The margins are black inked. ??The specimen is serially sectioned and entirely submitted as follows: BLOCK VERDUZCO B1 ?Tips, reverse en face B2, B3 ?Central sections (Dr. Prescott)/[facility] ESTROGEN AND PROGESTERONE RECEPTOR IMMUNOPEROXIDASE STAINS ? Date Ordered: ? 09/04/2007 ? Status: ?? Signed Out ?Date Complete: ? 09/04/2007 ? By: ??Latrice Anderson ? Date Reported: ? 09/04/2007 ? Interpretation ? Breast, left, mastectomy: - Ductal carcinoma in situ. 1. ?Positive for estrogen receptors (in 80% of tumor cells). 2. ?Positive for progesterone receptors (in greater than 90% of tumor cells). ?? Description ? Tissue submitted: Paraffin embedded tissue block labelled [id number] (A4) from [facility]. An immunohistochemical assay for estrogen receptors (ER1D5, Dako) and progesterone receptors ([id number], Dako) has been performed on this specimen. Standard heat activated antigen retrieval protocol (EDTA buffer at pH 8.0 and 98 C x 30 minutes) was employed followed by automated immunostaining. Intranuclear receptor complexes were visualized on tissue sections using an HRP polymer immunohistochemical technique. ? Results are reported as negative (no nuclear staining) or positive with the proportion of positive cells noted. ??Estrogen receptor expression in <5% of tumor cells may not have a strong interaction with estrogen receptor modulators such as Tamoxifen. ??(Dr. Metcalf)/mpl ? NOTE: ??One or more of the [...] reagents' ??performance characteristics have been determined by [facility]. ??This laboratory is certified under the Clinical Laboratory Improvement Amendments of 1988 (CLIA-88) as qualified to perform high complexity clinical laboratory testing. Document reviewed and electronically signed by: ? MANJIT METCALF MD ? Report date: 09/04/2007 By the signature above, the attending physician certifies that he/she has personally conducted a gross and/or microscopic examination of the described specimens and rendered or confirmed the above diagnosis. End of Report [facility] 08/27/2007 08/28/2007 10: 13 EST us Dc Bueno MD PATHOLOGY ORDERABLES Final Resul t [facility] [address] [place] [address] documented in this encounter Visit Diagnoses Not on filedocumented in this encounter
--- OUTSIDE RECORDS SUMMARY | 2024-10-09 15:19 | XMS_ITS | Encounter Summary ---
Author Organization [facility] Address [address] [place] [address] Care Team Providers Care Crusher And Binder Operator Name Role Phone Unavailable Primary Care Provider Unavailabl e Encounter Details Date Type Department Care Team (Late st Contact Info) Description 07/25/2008 Before PRISM Converted Visit ([place]) [address] [address] Dc Bueno MD [address] [place] [address] Social History Tobacco Use Types [...] Date/Time Associated Diagnosis Comments SURGICAL PATHOLOGY Routine 07/25/2008 0:00 EDT documented in this encounter Results * SURGICAL PATHOLOGY (07/25/2008 0:00 EDT) Pathology Report: SURGICAL PATHOLOGY REPORT ? Reports generated via electronic interface contain original data; ? however they are lacking the format of the original report. ? Caution should be taken when reading/interpreting unformatted reports. ? Name: ? LANGMAID, DARIO ? Accession #: ? [id number] ? : ? 1935 (Age: 72) ??M ? Collect Date: ? 07/25/2008 ? Location: ? [facility] ? Receive Date: ? 07/25/2008 ? Provider: DC BUENO MD ? Copy to: ? Final Pathologic Diagnosis: ? A. ?Skin of sideburn region, right, incisional biopsy: ? 1. 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 ? - Melanoma confined to epidermis ([place] level I). ? - Melanoma in situ extends to peripheral edge of incisional biopsy specimen. ? B. ?Skin of back, excisional biopsy: ? 1. ?Melanocytic nevus, junctional lentiginous type, with unusual ? architectural features and mild cytologic atypia. ? - Nevus does not extend to margins of excision of specimen. ? Microscopic Description: ? (A) ?Sections consist of a biopsy of skin to the mid reticular dermis. ?? The epidermis varies in thickness and ? rete architecture. ??In some of the sections, there is an eccentric papule ?? with epidermal acanthosis, papillomatosis and hyperkeratosis. ??At the other edge of the biopsy, there is an intraepidermal melanocytic proliferation. ??The ? proliferation is of relatively low cellular density but includes formation of ?? occasional nests. ??Individual melanocytes predominate and are unevenly spaced ?? along the dermal-epidermal junction. ??Occasional melanocytes are identified ? above the basal zone in the mid and, focally, upper levels of the stratum ? spinosum. ??The proliferation involves the epithelium of a follicular unit. ??The melanocytes are enlarged and show a moderate degree of nuclear atypia. ??The ? dermis has slight fibroplasia and a reactive vascular pattern with a sparse ? lymphomononuclear infiltrate. ??There are clustered melanophages. ??There is solar elastosis. ??Additional, deeper sections show similar features. ? Immunohistochemical staining was performed on this case to further ? characterize the lesion. ??Positive and negative controls stained appropriately. ? Block ?Antibody (Clone) ? Result ? A ?Willards-1 (Melan-A)(A103, [facility]) ? Highlights ?? melanocytic proliferation ?within epidermis ? NOTE: ??One or more of the reagents used in immunohistochemical testing in this case may not have been cleared or approved by the U.S. Food and Drug ? Administration (FDA). ??The FDA has determined that such clearance or approval is not necessary. ??These tests are used for clinical purposes. ??They should not be regarded as investigational or for research. ??These reagents' ??performance ? characteristics have been determined by [facility]. ??This ? laboratory is certified under the Clinical Laboratory Improvement Amendments of 1988 (CLIA-88) as qualified to perform high complexity clinical laboratory ? testing. ? (B) The epidermis shows mild hyperplasia consisting of thin and clubbed ? rete ridges. ??There is a proliferation of melanocytes within the epidermis that consists of rare nests but is predominated by individual cells in a lentiginous pattern. ??The nests are small and located at the tips of rete ridges. ??The ? individual melanocytes are generally evenly spaced along the dermal-epidermal ?? junction. ??The melanocytes are slightly enlarged and have dark nuclei. ??There is abundant melanin pigment within the epidermis, stratum corneum, and dermal ? melanophages. ??(Dr. Hinton)/isha ? Document reviewed and electronically signed by: ? Lissa Hinton, MD ? Report ??Date: 07/31/2008 09:36 ? By the signature above, the attending physician certifies that he/she has ? personally conducted a gross and/or microscopic examination of the described ? specimens and rendered or confirmed the above diagnosis. ? Specimen(s) Received: ? A. ?Right sideburn incisional bx (#1) ? B. ? Back ??(#2) ? Clinical History: ? H/O atypical nevi; B. atypical nevus ? Gross Description: ? Received in formalin labelled Langroyalid and #1 R sideburn incisional bx is a 0.3 x 0.2 x 0.1 cm biopsy of skin. ??The cutaneous surface is maldonado-brown and mottled. ??The specimen is submitted intact as (A). ? Received in formalin labelled Langmaid and #2 atypical nevus back is an ? unoriented elliptical excision of skin which measures 1.8 x 0.7 cm and is ? excised to a depth of 0.5 cm. ??The cutaneous surface has an eccentrically ? located 0.4 x 0.3 cm dark brown macule. ??The specimen is inked, serially ? sectioned and entirely submitted as (B1) distal tips, reverse en face and (B2) ?? central sections. (Dr. Fry)/mpl ? End of Report ? [facility] 07/25/2008 07/25/2008 7:2 3 EDT us Dc Bueno MD PATHOLOGY ORDERABLES Final Resul t [facility] [address] [place] [address] documented in this encounter Visit Diagnoses Not on filedocumented in this encounter
--- OUTSIDE RECORDS SUMMARY | 2024-10-09 15:19 | XMS_ITS | Encounter Summary ---
Author Organization [facility] [place] Address [address] [place] [address] Care Team Providers Care Senior Advisor Name Role Phone Unavailable Primary Care Provider Unavailabl e Encounter Details Date Type Department Care Team (Late st Contact Info) Description 11/22/2007 Results Only [facility] - [facility] conversion [address] [place] [address] Dc Bueno MD [address] [place] [address] Social History Tobacco Use Types [...] Date/Time Associated Diagnosis Comments SURGICAL PATHOLOGY Routine 11/22/2007 0:00 EST documented in this encounter Results * SURGICAL PATHOLOGY (11/22/2007 0:00 EST) Pathology Report: SURGICAL PATHOLOGY REPORT Reports generated via electronic interface contain original data; however they are lacking the format of the original report. Caution should be taken when reading/interpreting unformatted reports. Name: ? DARIO STONE ? Accession #: ? [id number] ? : ? 1935 (Age: 72) ??M ? Collect Date: ? 11/22/2007 ? Location: ? [facility] ? Receive Date: ? 11/26/2007 ? Provider: DC BUENO MD Copy to: BALDEV STALLINGS DO ? Final Pathologic Diagnosis: ? Breast, left, mastectomy: 1. ?No residual ductal carcinoma in situ (DCIS). See comment. 2. ? Focus of moderate epithelial hyperplasia. 3. ? Fat necrosis consistent with prior excisional biopsy. 4. ? Skin with no specific pathologic features. 5. ? Portion of skeletal muscle present. ?? Comment: ? Case was reviewed at intradepartmental consultation conference. ( Dr. Guevara). Document reviewed and electronically signed by: MICHAEL GUEVARA MD Report ??Date: 11/28/2007 15:45 By the signature above, the attending physician certifies that he/she has personally conducted a gross and/or microscopic examination of the described specimens and rendered or confirmed the above diagnosis. Specimen(s) Received: ? Breast tissue, left ??short superior, long lateral Clinical History: ? 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 Received in formalin labelled Langmaid and left breast tissue is an oriented product of a mastectomy that weighs 77 grams following fixation. ??The specimen is oriented as per the surgical requisition and measures 10.0 cm from medial to lateral, 6.5 cm from superior to inferior, and 3.0 cm from anterior to posterior. ??There is an overlying skin ellipse that measures 9.5 x 0.9 cm. ??The overlying skin is maldonado-white and focally firm. ??The specimen is inked, such that posterior aspect is black, the anterior aspect is blue, the medial and lateral aspects are orange, the superior aspect is red, and the inferior aspect is green. ??Serial sectioning reveals a yellow lobulated cut surface of adipose tissue with a dolan-white rubbery area of fibrosis extending 4.0 cm from medial to lateral, 2.5 cm from superior to inferior, and 1.5 cm from posterior to anterior. ??The fibrous tissue abuts the posterior aspect. ??The specimen is comprised of approximately 75% by adipose tissue and 25% by the fibrous tissue. Approximately 50% of the specimen is submitted. ??Orthopedic Coder sections are submitted as follows: BLOCK VERDUZCO A1 ?Skin ellipse A2 ?Medial margin A3 ?Most medial aspect of fibrous tissue A4 ?Fibrous tissue to include posterior margin A5 ?Fibrous tissue to include posterior margin A6, A7 ?Fibrous tissue to posterior margin (orange ink denotes contiguous surfaces) A8, A9 ?Central aspect of fibrous tissue to posterior margin A10, A11 ? Fibrous tissue to posterior, inferior, and superior margins (orange ink denotes contiguous ? surfaces) ? A12, A13 ? Fibrous tissue to posterior, anterior, and inferior margins (orange ink denotes contiguous ? surfaces) ? A14, A15 ? Lateral aspect of fibrous tissue to the posterior margin A16 ?Perpendicular sections of lateral margin ? (Dr. Ambriz)/emma End of Report [facility] 11/22/2007 11/26/2007 11: 08 EST us Dc Bueno MD PATHOLOGY ORDERABLES Final Resul t [facility] [address] [place] [address] documented in this encounter Visit Diagnoses Not on filedocumented in this encounter
== END 2024-10-09 15:09 | disposition home or self-care (01) ==
LOC: LBN 15:08
PROVIDERS: PCP Nurse Practitioner Family; Visit Provider Nurse Practitioner Family
DX: I48.91 Unspecified atrial fibrillation (principal)
CPT/HCPCS: 85610